=== PATIENT | female | born 1990 | race Caucasian/White ===

== ENCOUNTER → 2019-05-08 14:57 | Outpatient (CLI) | payer OTHER, SELFPAY ==
[2019-05-08 18:34] LABS: Chlamydia Trachomatis by PCR Negative (Negative); Neisserai gonorrhoeae by PCR Negative (Negative); Probe Check PASS; Sample Adequacy Control PASS; Specimen Processing Control PASS
== END ==
PROVIDERS: Visit Provider Obstetrics & Gynecology
DX: Z34.81 Encounter for supervision of other normal pregnancy, first trimester (principal); Z11.3 Encounter for screening for infections with a predominantly sexual mode of transmission
CPT/HCPCS: 87491; 87591

== ENCOUNTER → 2019-06-03 12:31 | Outpatient (CLI) | payer OTHER, SELFPAY ==
--- NOTE | 2019-06-03 12:34 | US_ITS ---
STUDY: FIRST TRIMESTER OBSTETRICAL ULTRASOUND REASON FOR EXAM: Female, 28 years old INITIAL LMP: 03/20/2019 TECHNIQUE: Transabdominal and Transvaginal TECHNICAL QUALITY: Adequate. PRIOR ULTRASOUND: None. FINDINGS: There is visualization of a single gestational sac in a normal intrauterine position. The mean sac diameter (MSD) measures 4.6, indicating an estimated gestational age (EGA) of 10 weeks, 3 days. The gestational sac shape is within normal limits. There is a visualized yolk sac. The yolk sac measures 5.1. The placenta is non-visualized. There is visualization of a live embryo. The crown-rump length (CRL) measures 3.6 cm, indicating an estimated gestational age (EGA) of 10 weeks, 4 days. There is demonstrated cardiac activity with a heart rate of 141 bpm. The estimated gestation age (EGA) by LMP is 10 weeks, 5 days. The estimated date of delivery (YUKO) by LMP is 12/25/2019. The estimated gestation age (EGA) by US is 10 weeks, 4 days. The estimated date of delivery (YUKO) by US is 12/26/2019. The uterus measures 9.1 x 7.3 x 6.0 cm. There is no demonstrated uterine fibroid. The cervix is closed. The right ovary measures 3.2 x 3.3 x 2.0 cm. There is no right ovarian cyst. There is no visualized right adnexal mass or complex lesion. The left ovary measures 2.8 x 2.9 x 1.4 cm. There is no left ovarian cyst. There is no visualized left adnexal mass or complex lesion. There is no fluid in the cul de sac. US/Init OB < 14Wks US IMPRESSION: Normal single live intrauterine gestation with ultrasound EGA of 10 weeks 4 days. Electronically Signed: Moy Brooks MD at 22:57 EST , Service support ,
== END ==
LOC: US 12:33
PROVIDERS: PCP Family Medicine; Referring Provider Obstetrics & Gynecology; Visit Provider Obstetrics & Gynecology
DX: Z34.03 Encounter for supervision of normal first pregnancy, third trimester (principal)
CPT/HCPCS: 76801

== ENCOUNTER → 2019-06-05 14:18 | Outpatient (CLI) | payer OTHER, SELFPAY ==
[2019-06-05 15:53] LABS: Absolute Lymphocyte Count 1.63 X10^3/uL (0.83-4.51); Absolute Neutrophil Count 6.7 X10^3/uL (2.0-7.7); Basophil# 0.05 X10^3/uL; Basophil% 0.6 % (0-1); Eosinophil# 0.08 X10^3/uL; Eosinophils% 0.9 % (0-5); Hemoglobin 13.4 g/dL (12.0-15.0); Lymphocyte # 1.63 X10^3/ul (4.0); Lymphocyte % 18.4 % (19-41); Mean Corp Hgb Conc 34.4 g/dL (32-36); Mean Corpuscular Hgb 30.3 pg (27.0-32.0); Mean Corpuscular Volume 88.2 fL (81-99); Mean Platelet Vol. 10.5 fl (6.2-12.0); Monocyte# 0.37 X10^3/uL; Monocyte% 4.2 % (0-10); NRBC Flagged by Analyzer 0 % (0-5); Neutrophil # 6.71 X10^3/uL (2.7-7.7); Neutrophil % 75.6 % (47-70); Platelet Count 242 K/mm3 (150-450); RBC Distribution Width CV 12.2 % (11.6-14.6); RBC Distribution Width SD 39.1 fl (35.1-43.9); Red Blood Count 4.42 M/mm3 (4.2-5.4); White Blood Count 8.9 K/mm3 (4.4-11.0)
[2019-06-05 15:58] LABS: Color, Urine Yellow (Yellow); Glucose, Dipstick Normal (Normal); Ketone-Dipstick Negative (Negative); Leukocyte Esterase-Dipstick 500 /ul (Negative); Nitrite-Dipstick Negative (Negative); Occult Blood-Urine Negative /ul (Negative); Protein-Dipstick Negative (Negative); Urine Bilirubin Dipstick Negative (Negative); Urine Clarity Sl. Cloudy (Clear); Urine Urobilinogen Normal (Normal)
[2019-06-05 16:11] LABS: Thyroid Stim Hormone (TSH) 0.76 uIU/mL (0.358-3.74)
[2019-06-05 16:50] LABS: Amphetamine Urine VISTA NEGATIVE (<1000 ng/mL); Barbiturate Urine VISTA NEGATIVE (< 200 ng/mL); Benzodiazepine Urine VISTA NEGATIVE (< 200 ng/mL); Cocaine Urine VISTA NEGATIVE (< 300 ng/mL); Ecstacy Urine VISTA NEGATIVE (< 500 ng/mL); Methadone Urine VISTA NEGATIVE (< 300 ng/mL); PCP Urine VISTA NEGATIVE (< 25 ng/mL); THC Urine VISTA NEGATIVE (< 50 ng/mL); Vista UDS pH Range 5
[2019-06-06 02:39] LABS: Prenatal RPR NONREACTIVE (NONREACTIVE)
[2019-06-06 10:13] LABS: HIV - WCH Non-Reactive (Nonreactive); Hepatitis B Surface Antigen Non-Reactive (Nonreactive); Hepatitis C Antibody Non-Reactive (Nonreactive); Rubella IgG 284.3 IU/mL; Vitamin D,25 Hydroxy 30.5 ng/mL (29.95-100.01)
== END ==
PROVIDERS: PCP Family Medicine; Visit Provider Obstetrics & Gynecology
DX: Z34.81 Encounter for supervision of other normal pregnancy, first trimester (principal)
CPT/HCPCS: 36415; 80307; 81002; 82306; 84443; 85025; 86703; 86762; 86803; 87086; 87088; 87340

== ENCOUNTER → 2019-07-29 11:31 | Outpatient (CLI) | payer OTHER, SELFPAY ==
--- NOTE | 2019-07-29 11:44 | US_ITS ---
STUDY: SECOND AND THIRD TRIMESTER OBSTETRICAL ULTRASOUND REASON FOR EXAM: Female, 28 years old ANATOMY LMP: March 20, 2019. TECHNIQUE: Transabdominal and Transvaginal TECHNICAL QUALITY: Adequate. PRIOR ULTRASOUND: Comparison is made with prior examination dated June 03, 2019. FINDINGS: There is a single intrauterine fetus. The fetus is in a cephalic presentation. There is demonstrated cardiac activity with a heart rate of 146 bpm. There is a normal amniotic fluid volume. The largest amniotic fluid pocket measures 3.9 cm x 9 cm. The amniotic fluid index (MILIND) is within normal limits. cm. The placenta is anterior with a complete previa. There are Grade 0 placental changes. The cervix measures 3.3 cm in length. The bilateral adnexal regions are normal. BIOMETRY: BPD: 4.5 cm: 19 weeks, 4 days HC: 16.7 cm: 19 weeks, 3 days AC: 14.2 cm: 19 weeks, 3 days FL: 3.1 cm: 19 weeks, 5 days CI: 81% FL/BPD: 70% FL/HC: FL/AC: 22% HC/AC: 1.17 age by current US: 19 weeks, 5 days. YUKO by current US: December 18, 2019. Estimated weight: 301 grams, +/- 44 grams, 91 %. age by prior US: 18 weeks, 4 days. YUKO by prior US: December 26, 2019. Age by LMP: 18 weeks, 5 days. YUKO by LMP: December 25, 2019. ANATOMY: Gender: Male Cranium: Normal lateral ventricles. Normal choroid plexus. Normal cerebellum. Normal cisterna magna. Normal face, nose and lips. Chest: Normal 4-chamber heart. Abdomen/Pelvis: Normal diaphragm. Normal stomach. Normal abdominal wall. Normal cord insertion. Normal 3 vessel cord. Normal kidneys. Normal bladder. Spine: Normal cervical spine. Normal thoracic spine. Normal lumbar spine. Normal sacrum. Extremities: Normal bilateral upper extremities. Normal bilateral lower extremities. US/OB Anatomy Scan IMPRESSION: Single live intrauterine gestation with a mean gestational age of 18 weeks and 4 days. The measurements obtained today following thin the normal expected range. There is a complete anterior placenta previa. Electronically Signed: Socrates Morrow, at 16:01 EDT , Service support ,
== END ==
PROVIDERS: PCP Family Medicine; Referring Provider Obstetrics & Gynecology; Visit Provider Obstetrics & Gynecology
DX: Z34.02 Encounter for supervision of normal first pregnancy, second trimester (principal)
CPT/HCPCS: 76805; 76817

== ENCOUNTER → 2019-09-25 15:24 | Outpatient (CLI) | payer OTHER, SELFPAY ==
[2019-09-25 15:56] LABS: Hematocrit 35.9 % (37-47); Hemoglobin 12.1 g/dL (12.0-15.0); Mean Corp Hgb Conc 33.7 g/dL (32-36); Mean Corpuscular Hgb 30.3 pg (27.0-32.0); Mean Corpuscular Volume 89.8 fL (81-99); Mean Platelet Vol. 10.3 fl (6.2-12.0); Platelet Count 249 K/mm3 (150-450); RBC Distribution Width CV 12.7 % (11.6-14.6); RBC Distribution Width SD 41.3 fl (35.1-43.9); White Blood Count 10.6 K/mm3 (4.4-11.0)
[2019-09-25 16:22] LABS: Glucose Challenge Gest 1H 50g 74 mg/dL (70-140)
== END ==
PROVIDERS: PCP Family Medicine; Visit Provider Obstetrics & Gynecology
DX: Z34.82 Encounter for supervision of other normal pregnancy, second trimester (principal)
CPT/HCPCS: 36415; 82950; 85027

== ENCOUNTER → 2019-11-27 13:51 | Outpatient (CLI) | payer OTHER, SELFPAY ==
[2019-11-27 15:39] LABS: Hematocrit 32.8 % (37-47); Hemoglobin 11.5 g/dL (12.0-15.0); Mean Corp Hgb Conc 35.1 g/dL (32-36); Mean Corpuscular Hgb 31.8 pg (27.0-32.0); Mean Corpuscular Volume 90.6 fL (81-99); Mean Platelet Vol. 11.5 fl (6.2-12.0); Platelet Count 184 K/mm3 (150-450); RBC Distribution Width CV 12.5 % (11.6-14.6); RBC Distribution Width SD 39.7 fl (35.1-43.9); Red Blood Count 3.62 M/mm3 (4.2-5.4); White Blood Count 8.3 K/mm3 (4.4-11.0)
[2019-11-27 15:57] LABS: ALB/GLOB Ratio 0.8 RATIO (0.9-2.4); AST(SGOT) 21 U/L (15-37); Alanine Aminotransfer ALT/SGPT 18 U/L (13-56); Albumin, Serum 2.7 g/dL (3.2-5.0); Alkaline Phosphatase 99 U/L (45-117); Anion Gap 6 (5-15); BUN 7 mg/dL (7-18); BUN/Creat Ratio 10.8 RATIO (10-20); Calcium,Total 8.5 mg/dL (8.5-10.1); Chloride 109 mmol/L (98-107); Creatinine, Serum 0.65 mg/dL (0.55-1.02); EST Glomerular Filtration Rate 117 mL/min (>60); Est Glom Filt Rate - Afr Amer 141 mL/min (>60); Globulin 3.5 g/dL (2.2-4.2); Glucose 89 mg/dL (74-106); Potassium 3.6 mmol/L (3.5-5.1); Protein, Total 6.2 g/dL (6.4-8.2); Sodium Level 138 mmol/L (136-145); Uric Acid 5.6 mg/dL (2.6-6.0)
== END ==
PROVIDERS: PCP Family Medicine; Visit Provider Obstetrics & Gynecology
DX: Z34.83 Encounter for supervision of other normal pregnancy, third trimester (principal); Z36.85 Encounter for antenatal screening for Streptococcus B
CPT/HCPCS: 36415; 80053; 84550; 85027; 87077; 87081; 87186

== ENCOUNTER → 2019-11-29 10:05 | Outpatient (CLI) | payer OTHER, SELFPAY ==
[2019-11-29 10:59] LABS: 24 Hour Urine Protein 171.7 mg/24HR (<150 MG/24HR); 24HR. UA Prot. Total Volume 2725 mL; Urine Protein (24 Hour) 6.3 mg/dL (<11.9)
== END ==
PROVIDERS: PCP Family Medicine; Visit Provider Obstetrics & Gynecology
DX: Z34.83 Encounter for supervision of other normal pregnancy, third trimester (principal)
CPT/HCPCS: 81050; 84156

== ENCOUNTER 2019-12-03 12:38 | Outpatient (CLI) | payer OTHER, SELFPAY ==
[2019-12-03] VITALS (8 sets, daily range): BP systolic 120–129; BP diastolic 79–86; PULSE 67–82; TEMP 37.2; O2SAT 98; BMI 25.5
[2019-12-03 13:20] LABS: Protein, Urine (Random) 12.5 mg/dL (<11.9); Protein:Creat Ratio 142 mg/g CRE (0-200)
[2019-12-03 13:21] LABS: Hematocrit 33.8 % (37-47); Hemoglobin 11.9 g/dL (12.0-15.0); Mean Corp Hgb Conc 35.2 g/dL (32-36); Mean Corpuscular Hgb 30.4 pg (27.0-32.0); Mean Corpuscular Volume 86.4 fL (81-99); Mean Platelet Vol. 11.1 fl (6.2-12.0); Platelet Count 183 K/mm3 (150-450); RBC Distribution Width CV 12.6 % (11.6-14.6); RBC Distribution Width SD 39.2 fl (35.1-43.9); Red Blood Count 3.91 M/mm3 (4.2-5.4); White Blood Count 8.5 K/mm3 (4.4-11.0)
[2019-12-03 13:56] LABS: ALB/GLOB Ratio 0.8 RATIO (0.9-2.4); AST(SGOT) 20 U/L (15-37); Alanine Aminotransfer ALT/SGPT 17 U/L (13-56); Albumin, Serum 2.7 g/dL (3.2-5.0); Alkaline Phosphatase 110 U/L (45-117); Anion Gap 5 (5-15); BUN 8 mg/dL (7-18); BUN/Creat Ratio 14.9 RATIO (10-20); Calcium,Total 8.8 mg/dL (8.5-10.1); Chloride 108 mmol/L (98-107); Creatinine, Serum 0.54 mg/dL (0.55-1.02); EST Glomerular Filtration Rate 145 mL/min (>60); Est Glom Filt Rate - Afr Amer 175 mL/min (>60); Estimated Creatinine Clearance 147.79 ml/min; Globulin 3.6 g/dL (2.2-4.2); Glucose 86 mg/dL (74-106); Potassium 3.6 mmol/L (3.5-5.1); Protein, Total 6.3 g/dL (6.4-8.2); Sodium Level 138 mmol/L (136-145); Uric Acid 5.7 mg/dL (2.6-6.0)
--- NOTE | 2019-12-03 23:55 | OB.TRI.NOTE ---
- Problem List (1) 36 weeks gestation of Status: Acute (2) Gestational hypertension Status: Acute Qualifiers: Trimester: third trimester Qualified Code(s): O13.3 - Gestational [-induced] hypertension without significant proteinuria, third trimester History of Present Illness Date of Service: 12/03/19 Was patient seen by the physician?: No Reason For Visit: R/O PRE-ECLAMPSIA Final YUKO: 12/25/19 Gestational age: 36 Weeks and 6 Days History of Present Illness: 28yo G1 @ 36 6/7wga with gestational hypertension sent to L&D from office for increasing BP to 140s/110s and monitoring. Denies headache, vision changes, shortness of breath or abdominal pain. Allergies No Known Allergies Allergy (Verified 12/03/19 12:48) Laboratory Studies: Laboratory Tests 12/03/19 12/03/19 12/03/19 Range/Units 13:10 13:10 13:00 WBC 8.5 (4.4-11.0) K/mm3 RBC 3.91 L (4.2-5.4) M/mm3 Hgb 11.9 L (12.0-15.0) g/dL Hct 33.8 L (37-47) % MCV 86.4 (81-99) fL MCH 30.4 (27.0-32.0) pg MCHC 35.2 (32-36) g/dL RDW Std Deviation 39.2 (35.1-43.9) fl RDW Coeff of Idris 12.6 (11.6-14.6) % Plt Count 183 (150-450) K/mm3 MPV 11.1 (6.2-12.0) fl Sodium 138 (136-145) mmol/L Potassium 3.6 (3.5-5.1) mmol/L Chloride 108 H (98-107) mmol/L Carbon Dioxide 25.0 (21.0-32.0) mmol/L Anion Gap 5 (5-15) BUN 8 (7-18) mg/dL Creatinine 0.54 L (0.55-1.02) mg/dL Estim Creat Clear Calc 147.79 ml/min Est GFR (MDRD) Af Amer 175 (>60) mL/min Est GFR (MDRD) Non-Af 145 (>60) mL/min BUN/Creatinine Ratio 14.9 (10-20) RATIO Glucose 86 (74-106) mg/dL Uric Acid 5.7 (2.6-6.0) mg/dL Calcium 8.8 (8.5-10.1) mg/dL Total Bilirubin 0.40 (0.20-1.00) mg/dL AST 20 (15-37) U/L ALT 17 (13-56) U/L Alkaline Phosphatase 110 (45-117) U/L Total Protein 6.3 L (6.4-8.2) g/dL Albumin 2.7 L (3.2-5.0) g/dL Globulin 3.6 (2.2-4.2) g/dL Albumin/Globulin Ratio 0.8 L (0.9-2.4) RATIO U Random Total Protein 12.5 H (<11.9) mg/dL Urine Creatinine 88.00 (NO RANGE EST.) mg/dL Protein/Creatinin Ratio 142 (0-200) mg/g CRE Physical Exam Vitals: Vital Signs Temp Pulse BP Pulse Ox 98.9 F 74 129/85 H 98 12/03/19 12:56 12/03/19 14:34 12/03/19 14:34 12/03/19 12:56 NST - FHR Rate Baby A Baseline: 130 Variability:: Moderate Accelerations:: 15 x 15 Decelerations:: None NST Reactive:: Yes FHR Category:: Category I Uterine Activity:: 0/10 Impression/Plan 38yo G1 @ 36 6/7wga with gestational hypertension with Cat I FHR -Labs reviewed with no signs of preeclampsia and BPs improved with rest -D/c home -Plan for IOL later this week -No further work
== END 2019-12-03 14:55 | disposition home or self-care (01) ==
LOC: WPOUT 12:44 → OBT 12:47
PROVIDERS: PCP Family Medicine; Referring Provider Obstetrics & Gynecology; Visit Provider Obstetrics & Gynecology
DX: O13.3 Gestational [pregnancy-induced] hypertension without significant proteinuria, third trimester (principal); Z3A.36 36 weeks gestation of pregnancy
CPT/HCPCS: 36415; 59025; 59050; 80053; 82570; 84156; 84550; 85027; 99218; G0378

== ENCOUNTER 2019-12-05 21:23 | Inpatient (IN) | payer OTHER, SELFPAY ==
[2019-12-03 12:48] VITALS: BMI 25.5
[2019-12-05] VITALS (7 sets, daily range): BP systolic 130–141; BP diastolic 86–95; PULSE 63–89; TEMP 37–37.4; O2SAT 97; BMI 25.7
--- NOTE | 2019-12-05 21:40 | PCM.HP.OB ---
- Problem List (1) Gestational hypertension Status: Acute Qualifiers: Trimester: third trimester (2) 37 weeks gestation of Status: Acute History Date of Admission: 12/05/19 Final YUKO: 12/25/19 Final YUKO Source: US <20 weeks Gestational age: 37 Weeks and 2 Days History of this : This is a 28 year-old, G [1], P [0], at 37 weeks gestational age. Allergies No Known Allergies Allergy (Verified 12/03/19 12:48) Home Medications: Home Medications Vits [Prenatabs FA ] 1 tab PO DAILY 12/03/19 Inulin/Chromium Picolinate [Fiber Gummies] 1 ea PO PRN PRN 12/06/19 Smoking Status: Never smoker Alcohol: None Number of Fetus(es): 1 NST - FHR Rate Baby A Baseline: 130 Variability:: Moderate Accelerations:: 15 x 15 Decelerations:: None NST Reactive:: Yes FHR Category:: Category I Uterine Activity:: quiet History Past Pregnancies: Past Pregnancies: None Labs: Mom's Problem List Problem Status Onset Code 37 weeks gestation of Acute Z3A.37 Mom's Labs & Results 12/05/19 12/05/19 22:00 22:00 WBC 9.5 RBC 3.99 L Hgb 11.9 L Hct 34.8 L MCV 87.2 MCH 29.8 MCHC 34.2 RDW Std Deviation 39.0 RDW Coeff of Idris 12.3 Plt Count 194 MPV 11.5 Immature Gran % (Auto) 0.300 Neut % (Auto) 76.4 H Lymph % (Auto) 17.1 L Kleberg % (Auto) 4.9 Eos % (Auto) 0.8 Baso % (Auto) 0.5 Absolute Neuts (auto) 7.2 Absolute Lymphs (auto) 1.62 Nucleated RBC % 0 Blood Type A POSITIVE Antibody Screen NEGATIVE Course Did the patient receive Yes care? Labs Blood Type: A RH: POSITIVE RPR/VDRL/Syphilis Nonreactive Rubella status Immune HbSAg Negative Date Done: 06/05/19 Chlamydia Negative Gonorrhea Negative HIV/AIDS Non-Reactive Group B Strep: Positive Current Obstetrical History Gestational Diabetes No Incompetent Cervix No Infertility No IUGR No Macrosomia No Hypertension/Pre-eclampsia Yes Placenta Previa/Abruption Yes: resolved previa at 33wks PTL/PROM No Uterine anomaly No Oligohydramnios No Polyhydramnios No Multiple gestation No Past Medical History Asthma No Diabetes No Hypertension No Heart disease No Mitral valve prolapse No Neurologic/Seizure disorder/ No Migraines Kidney disease No Liver disease No Varicosities No Clotting disorders/Hx of DVT No Thyroid Dysfunction No Other medical diseases No Psychiatric disorders No Major trauma No Abnormal PAP smear No Sleep apnea No Mammogram in the last 2 years No Social History Marital Status: Alleged father Carson Augustine Hx Smoking No Smoking Status Never smoker Expected Delivery Method: Spontaneous Vaginal Number of Visits: 10 Review of Systems Constitutional: Denies: Chills, Fever, Weight Change HEENT: Denies: Head Aches, Sinus Congestion, Sinus Drainage Cardiovascular: Denies: Chest Pain, Palpitations Respiratory: Denies: Cough, Shortness of breath at rest, Sputum production Gastrointestinal: Denies: Abdominal Pain, Nausea, Vomiting Genitourinary: Denies: Dysuria Musculoskeletal: Denies: Joint Pain, Joint Tenderness Skin: Denies: Rash, Wounds Neurological: Denies: Numbness, Tingling, Focal weakness Psychiatric: Denies: Anxiety, Depression, Homicidal Ideations, Suicidal Ideations Hematologic/ Lymphatic: Denies: Easy Bruising, Easy Bleeding Physical Exam Vitals: Vital Signs Temp Pulse BP Pulse Ox 98.2 F 70 128/90 H 98 12/06/19 06:51 12/06/19 06:52 12/06/19 06:51 12/06/19 06:52 General: Alert, Oriented x3, No apparent distress HEENT: Atraumatic, Normocephalic. Negative for: Thyromegaly, Lymphadenopathy Cardiovascular: Regular rate, Regular Rhythm Lungs: Clear to auscultation Abdomen: Bowel Sounds Present, Gravid Neurological: Deep Tendon Reflexes 2+/4 and Symmetrical, Neuro grossly intact [employer] DES[employer] ENGINEER: Normal external genitalia. Negative for: Vulvar lesions Estimated gestational size: Appropriate for gestational size Presentation: Cephalic Cervix Dilation (cm): 3 Station: -2 Effacement (%): 50 Assessment/Plan All Active Problems 36 weeks gestation of (Acute) Gestational hypertension (Acute) 37 weeks gestation of (Acute) A/P: This is a 28 year-old, G [1], P [0], at 37 weeks gestational age. IOL with Pitocin for gestational hypertension SVE /-2 NST Category I Continuous monitoring Will update POC with Dr. Givens
[2019-12-05] MEDS: Lactated Ringers 1,000 ML 50 ML IV (22:05)
[2019-12-05] MEDS: Oxytocin 30 units/NS 500 ml 30 UNITS/500 ML IV.SOLN IV (22:15)
[2019-12-05 22:39] LABS: Absolute Lymphocyte Count 1.62 X10^3/uL (0.83-4.51); Absolute Neutrophil Count 7.2 X10^3/uL (2.0-7.7); Basophil# 0.05 X10^3/uL; Basophil% 0.5 % (0-1); Eosinophil# 0.08 X10^3/uL; Eosinophils% 0.8 % (0-5); Hematocrit 34.8 % (37-47); Hemoglobin 11.9 g/dL (12.0-15.0); Lymphocyte # 1.62 X10^3/ul (4.0); Lymphocyte % 17.1 % (19-41); Mean Corp Hgb Conc 34.2 g/dL (32-36); Mean Corpuscular Hgb 29.8 pg (27.0-32.0); Mean Corpuscular Volume 87.2 fL (81-99); Mean Platelet Vol. 11.5 fl (6.2-12.0); Monocyte# 0.46 X10^3/uL; Monocyte% 4.9 % (0-10); NRBC Flagged by Analyzer 0 % (0-5); Neutrophil # 7.23 X10^3/uL (2.7-7.7); Neutrophil % 76.4 % (47-70); Platelet Count 194 K/mm3 (150-450); RBC Distribution Width CV 12.3 % (11.6-14.6); Red Blood Count 3.99 M/mm3 (4.2-5.4); White Blood Count 9.5 K/mm3 (4.4-11.0)
[2019-12-06] VITALS (47 sets, daily range): BP systolic 118–139; BP diastolic 73–95; PULSE 61–102; RESP 16; TEMP 36.6–37.4; O2SAT 94–100
--- NOTE | 2019-12-06 07:32 | PCM.PN.OB ---
Patient Problems: Active and Suspected Problems 37 weeks gestation of (Acute) Subjective: Feeling well with pain 4/10 with contractions. Objective: VSS with systolic 120-140s, diastolic 60-90s. SVE 3.5-4/80/-1 soft midposition. NST FHR baseline 140, + accels, -decels, moderate variability with UC Q1.5-4m. - Physical Exam Vitals/I&O's: Vital Signs Temp Pulse BP Pulse Ox 98.2 F 70 128/90 H 98 12/06/19 06:51 12/06/19 06:52 12/06/19 06:51 12/06/19 06:52 Weight: 72.121 kg Body Mass Index (BMI) 25.7 Intake and Output for Last 24 Hours 12/04/19 12/05/19 12/06/19 23:59 23:59 23:59 Intake Total 127.67 / 127.67 465.83 / 465.83 Output Total 200 / 200 500 / 500 Balance -72.33 / -72.33 -34.17 / -34.17 General: Alert, Oriented x3, Cooperative HEENT: Atraumatic, PERRLA, EOMI, Normocephalic Neck: Supple, No JVD, Negative Carotid Bruits Lungs: Clear to auscultation, Normal air movement Cardiovascular: Regular rate, No murmurs Abdomen: Bowel Sounds Present, Soft, Non Tender Extremities: No edema, Capillary Refill Less than 3 Seconds Skin: No rashes, No breakdown Musculoskeletal: No Tenderness to Palpation of Joints or Extremities Neurological: Cranial nerves II-XII grossly intact Psych/Mental Status: Normal Affect, Appropriate Laboratory Results 12/05/19 22:00: WBC 9.5, RBC 3.99 L, Hgb 11.9 L, Hct 34.8 L, MCV 87.2, MCH 29.8, MCHC 34.2, RDW Std Deviation 39.0, RDW Coeff of Idris 12.3, Plt Count 194, MPV 11.5, Immature Gran % (Auto) 0.300, Neut % (Auto) 76.4 H, Lymph % (Auto) 17.1 L, [place] % (Auto) 4.9, Eos % (Auto) 0.8, Baso % (Auto) 0.5, Absolute Neuts (auto) 7.2, Absolute Lymphs (auto) 1.62, Nucleated RBC % 0 12/05/19 22:00: Blood Type A POSITIVE, Antibody Screen NEGATIVE Current Medications Acetaminophen (Tylenol) 325 - 650 mg PO Q4H PRN PRN PRN Reason: Pain Score 1-3/10 Al Hydroxide/Mg Hydroxide (Mylanta Ii) 15 - 30 ml PO Q4H PRN PRN PRN Reason: INDIGESTION Citric Acid/Sodium Citrate (Bicitra) 30 ml PO X1 PRN PRN Reason: Section Fentanyl Citrate (Sublimaze (100mcg Ampule)) 25 - 50 mcg IV Q2H PRN PRN PRN Reason: Pain Score 4-10/10 Lactated Ringer's () 500 mls @ 999 mls/hr IV .Q31M PRN PRN Reason: Epidural Lactated Ringer's () 500 mls @ 999 mls/hr IV .Q31M PRN PRN Reason: Corrective Measures Lactated Ringer's () 1,000 mls @ 50 mls/hr IV .Q20H [facility] Last Infusion: 12/06/19 06:45 Dose: 0 mls/hr Documented by: Oxytocin/Sodium Chloride () 30 units in 500 mls @ 2 mls/hr IV .Q250H [facility] Last Infusion: 12/06/19 05:00 Dose: 20 mls/hr Documented by: Penicillin G Potassium/Dextrose (Penicillin G Potassium) 3 mu in 50 mls @ 100 mls/hr IV Q4H [facility] Last Admin: 12/06/19 06:45 Dose: 100 mls/hr Documented by: Ondansetron HCl (Zofran) 4 mg IV Q4H PRN PRN PRN Reason: NAUSEA Prochlorperazine Edisylate (Compazine Iv) 10 mg IV Q6H PRN PRN PRN Reason: NAUSEA Sodium Chloride () 10 - 40 ml IV X1 PRN PRN Reason: SALINE FLUSH Medical Necessity - Tobacco Use Smoking Status: Never smoker Assessment/Plan All Active Problems 36 weeks gestation of (Acute) Gestational hypertension (Acute) 37 weeks gestation of (Acute) A/P: Pitocin IOL SVE 3.5-4/80/-1 with AROM of clear, blood tinged amniotic fluid NST Category I UC Q1.5-4m Unsure of pain management Will update POC with oncoming primary OB, Dr. Givens
[2019-12-06] MEDS: Lactated Ringers 500 ML 999 ML IV (07:40)
[2019-12-06] MEDS: fentaNYL-bupivacaine (epidural) 100 ML BAG EPIDURAL (08:25)
--- NOTE | 2019-12-06 08:48 | PCM.PN.BLA ---
Progress Note LABOR PROGRESS NOTE Brigid is more comfortable with the epidural. AVSS GEN - NAD, AAO x 3 FHR 125, moderate variability, + acceleratinos, no decelerations TOCO 5/10 min SVE 4.5/90/0, cephalic A/P: 28yo G1 @ 37 2/7 wga, IOL for gHTN, on pitocin s/p AROM, Cat I FHR -Maternal and statuses reassuring -Continue pitocin as tolerated by mother and fetus STROKE Vital Signs/Narrative: Vital Signs Temp Pulse BP Pulse Ox 12/06/19 08:44 71 133/82 H 100 12/06/19 08:43 73 124/82 H 12/06/19 08:39 74 99 12/06/19 08:38 74 134/79 H 12/06/19 08:34 70 135/73 H 100 12/06/19 08:33 76 134/78 H 12/06/19 08:29 95 100 12/06/19 08:27 76 135/87 H 98 12/06/19 08:24 101 H 97 12/06/19 08:23 100 135/92 H 12/06/19 08:18 85 137/91 H 96 12/06/19 08:13 88 139/79 H 98 12/06/19 08:09 73 134/83 H 12/06/19 08:08 102 H 94 12/06/19 07:33 98.5 F 71 128/95 H 98 12/06/19 06:52 70 98 12/06/19 06:51 98.2 F 73 128/90 H 12/06/19 06:01 68 99 12/06/19 06:00 98.3 F 66 136/87 H 12/06/19 04:59 98.1 F 72 97 12/06/19 04:58 139/91 H
[2019-12-06] MEDS: Oxytocin 30 units/NS 500 ml 30 UNITS/500 ML IV.SOLN 334 UNITS IV (11:08)
[2019-12-06] MEDS: Methylergonovine 0.2 MG/ML Ampul IM (11:25)
[2019-12-06] MEDS: miSOPROStol 200 MCG Tablet 1000 MCG RECTAL (12:15)
--- NOTE | 2019-12-06 12:32 | OP.PCM_ITS ---
Problem List (1) 37 weeks gestation of Status: Acute (2) Gestational hypertension Status: Acute Qualifiers: Trimester: third trimester Qualified Code(s): O13.3 - Gestational [-induced] hypertension without significant proteinuria, third trimester Vaginal Delivery Maternal Presentation: Medically Indicated Induction Method of Induction: Pitocin, Amniotomy Amniotic Membrane Rupture Type: Artificial Rupture of Membrane time: 0659h 12/06/19 Amniotic Fluid Description: Clear Final YUKO: 12/25/19 Final YUKO Source: US <20 weeks Gestational age: 39 Weeks and 2 Days Elberta doctor who attended delivery (if requested by OB): Pieter Manjarrez Date of Procedure: 12/06/19 Pre-Operative Diagnosis: 37 2/7wga, gestational hypertension Post-Operative Diagnosis: 37 2/7wga, gestational hypertension Surgery/ Procedure Performed: Spontaneous Vaginal Delivery Anesthesiologist: Israel Morgan Type of Anesthesia: Epidural Description of Procedure: Patient was FD/+4 station on my arrival. Pushed to delivery vigorous male in JOSHUA through body cord. The was placed on the maternal abdomen and further attended by nursery personnel. The cord was doubly clamped and cut at 3 minutes of life. The placenta delivered spontaneously and appeared intact on inspection. The fundus was firm however there was heavy bleeding without hemorrhage. Methergine was given. A posterior cervical laceration with arteriolar bleeding was identified and repaired with 3-0 Vicryl Rapide with improved hemostasis. A second degree perineal laceration was repaired with 3-0 Vicryl Rapide. On re-inspection of the cervix, there was an increase of bleeding. The posterior cervical repair was reinforced with a second later of 3-0 Vicryl Rapide. The cervix remained patent following the repair with lower uterine segment clots palpable on exam. The fundus remained firm at 2 FW below umbilicus. Hemostasis was attained. Cytotec per rectum 800mcg administered. Sponge and needle counts were correct x 2. Presentation: Vertex Placental Delivery Description: Spontaneous Placenta Disposition: [facility] Cord Vessel Description: 3 Vessels Nuchal Cord Compression: Without compression Cord Entanglement: None Drain: Banks to straight drain Estimated Blood Loss: 750 ml A gender: Male Episiotomy Description: None Laceration: Midline, Perineal Extension/lac, Cervical Extension/lac, 2nd degree Medications given after delivery: IV Pitocin, IM Methergin, - - misoprostol
--- NOTE | 2019-12-06 13:50 | NURSING ---
Baby tansferred to nursery for observation , initiated double pumping with mother , educated on how to clean pumping supplies
[2019-12-06] MEDS: Acetaminophen 500 MG Tablet 1000 MG PO (16:24)
[2019-12-06] MEDS: Ibuprofen 600 MG Tablet PO (18:42)
[2019-12-07 00:31] VITALS: BP 119/85; PULSE 71; RESP 14; TEMP 36.4
[2019-12-07] MEDS: Ibuprofen 600 MG Tablet PO ×3 (00:51→15:57)
[2019-12-07 03:50] VITALS: BP 134/85; PULSE 77; RESP 14; TEMP 36.6
[2019-12-07] MEDS: Acetaminophen 500 MG Tablet 1000 MG PO ×2 (03:53→12:45)
[2019-12-07 06:36] LABS: Hemoglobin 9.7 g/dL (12.0-15.0); Mean Corp Hgb Conc 34.6 g/dL (32-36); Mean Corpuscular Hgb 30.3 pg (27.0-32.0); Mean Corpuscular Volume 87.5 fL (81-99); Mean Platelet Vol. 11.1 fl (6.2-12.0); Platelet Count 156 K/mm3 (150-450); RBC Distribution Width CV 12.7 % (11.6-14.6); RBC Distribution Width SD 39.6 fl (35.1-43.9); White Blood Count 12.8 K/mm3 (4.4-11.0)
[2019-12-07 09:29] VITALS: BP 116/85; PULSE 65; RESP 16; TEMP 37.1
[2019-12-07] MEDS: Prenatal Vits Tablet 1 TABLET PO (09:43)
--- NOTE | 2019-12-07 10:00 | DCINST_ITS ---
Discharge Diet: No Restrictions Discharge Activity: Return to Normal Activity, May not drive while taking narcotic pain medications., May Shower May resume sexual activity in: 4-6 weeks Additional Activity Instructions:: Nothing in the vagina for 4-6 weeks. You may return to work/school in 6 weeks. Call your doctor if your incision/area has: Continuous Slow Oozing, Sudden Increased Bleeding, Increased Pain/ Swelling, Increased Redness, Foul Smelling Discharge Additional Instructions: If you experience any of the following, contact your healthcare provider. * Bleeding that soaks a pad every hour for 2 hours * Fever 100.4 or higher * Unrelieved incision or abdominal pain * Swelling, redness, discharge or bleeding from your incision or episiotomy site * Your incision begins to separate * Problems urinating (including inability to urinate or burning while urinating). * Visual changes * Severe headache * Flu-like symptoms * Pain or redness in one of both of your breasts * Pain, warmth, tenderness or swelling in your legs, especially the calf area * Frequent nausea and vomiting * Symptoms of depression or anxiety If you experience any of the following, call 911 or go to the nearest Emergency Room. * Chest pain * Problems breathing * Seizure activity * Partial or complete paralysis of a body part, slurred speech, weakness or drooping of the face, or a sudden inability to walk or hold your balance Allergies/Adverse Reactions: Allergies No Known Allergies Allergy (Verified 12/03/19 12:48) Medications to take at Discharge Vits [Prenatabs FA ] 1 tab PO DAILY 12/03/19 Inulin/Chromium Picolinate [Fiber Gummies] 1 ea PO PRN PRN 12/06/19 Please Follow Up With: Radha Toscano MD When: Call to make an appointment with your doctor in 6 weeks. Primary Care Physician: Bora Wong MD [Primary Care Provider] - Test Results: Test results from this visit will be discussed in further detail at your follow- up appointment, if applicable.
[2019-12-07 10:04] VITALS: BP 107/69; PULSE 76; RESP 16; TEMP 37.1; O2SAT 98
--- NOTE | 2019-12-07 10:05 | PN.OBGYN_ITS ---
Patient Problems: Active and Suspected Problems 37 weeks gestation of (Acute) Subjective: Reports urinating well and had a small BM early this AM. Tolerating a regular diet and ambulating in her room. States is going well with son having a good latch. Would like to work with once today before disc harge. Denies heavy bleeding, states its like a moderate period. Vaginal pain is well controlled with Motrin and Tylenol. Objective: VSS. Highest BP overnight 130s/80s. Fundus is firm, midline at U. Lochia rubra moderate. - Physical Exam Vitals/I&O's: Vital Signs Temp Pulse Resp BP Pulse Ox 98.7 F 65 16 116/85 H 100 12/07/19 09:29 12/07/19 09:29 12/07/19 09:29 12/07/19 09:29 12/06/19 10:13 Oxygen Delivery Method Room Air Weight: 72.121 kg Body Mass Index (BMI) 25.7 Intake and Output for Last 24 Hours 12/05/19 12/06/19 12/07/19 23:59 23:59 23:59 Intake Total 127.67 / 127.67 2241.50 / 2241.50 Output Total 200 / 200 850 / 850 Balance -72.33 / -72.33 1391.50 / 1391.50 General: Alert, Oriented x3, Cooperative HEENT: Atraumatic, PERRLA, EOMI, Normocephalic Neck: Supple, No JVD, Negative Carotid Bruits Lungs: Clear to auscultation, Normal air movement Cardiovascular: Regular rate, No murmurs Abdomen: Bowel Sounds Present, Soft, Non Tender, Hypoactive Bowel Sounds - reports +BM and passing flatus Extremities: No edema, Capillary Refill Less than 3 Seconds Skin: No rashes, No breakdown Musculoskeletal: No Tenderness to Palpation of Joints or Extremities Neurological: Cranial nerves II-XII grossly intact Psych/Mental Status: Normal Affect, Appropriate Laboratory Results 12/07/19 06:28: WBC 12.8 H, RBC 3.20 L, Hgb 9.7 L, Hct 28.0 L, MCV 87.5, MCH 30.3, MCHC 34.6, RDW Std Deviation 39.6, RDW Coeff of Idris 12.7, Plt Count 156, MPV 11.1 Current Medications Acetaminophen (Tylenol) 1,000 mg PO Q8H PRN PRN PRN Reason: Pain Score 1-3/10 Last Admin: 12/07/19 03:53 Dose: 1,000 mg Documented by: Bisacodyl (Dulcolax) 10 mg RECTAL UD PRN PRN Reason: If no BM Dibucaine (Dibucaine) 1 applic TOPICAL TID PRN PRN; Protocol PRN Reason: Discomfort Hydrocortisone (Hytone) 1 applic TOPICAL TID PRN PRN; Protocol PRN Reason: Discomfort Ibuprofen (Motrin) 600 mg PO Q6H PRN PRN PRN Reason: Pain Score 1-10/10 Last Admin: 12/07/19 09:43 Dose: 600 mg Documented by: Methylergonovine Maleate (Methergine) 0.2 mg IM X1 PRN PRN Reason: Excess bleeding/uterine atony Ondansetron HCl (Zofran) 4 mg IV Q4H PRN PRN PRN Reason: NAUSEA Multivit/Folic Acid/Iron (Prenatabs Fa) 1 tablet PO DAILY@1200 JAKUB Last Admin: 12/07/19 09:43 Dose: 1 tablet Documented by: Senna/Docusate Sodium (Senokot-S, Priya-Colace) 1 - 2 tablet PO DAILY PRN PRN PRN Reason: Constipation Simethicone (Mylicon) 80 mg PO PCHS PRN PRN Reason: Indigestion/Stomach pain Last Admin: 12/07/19 09:43 Dose: 80 mg Documented by: Sodium Chloride () 5 - 15 ml IV UD PRN PRN Reason: SALINE FLUSH Medical Necessity - Tobacco Use Smoking Status: Never smoker Assessment/Plan All Active Problems 36 weeks gestation of (Acute) Gestational hypertension (Acute) 37 weeks gestation of (Acute) A/P: S/P NVD day #1 mother Normal involution and lochia BPs have remained stable 110s-130s/70s-80s, denies headache, blurred vision, RUQ pain or epigastric pain Dyad stable Discharge home today with 6 week PP appointment already scheduled Educated on signs of pre-e and when to call
[2019-12-07 12:38] VITALS: BP 107/69; PULSE 77; RESP 16; TEMP 36.6; O2SAT 95
== END 2019-12-07 16:05 | disposition home or self-care (01) | DRG 768 ==
PROVIDERS: Admitting Provider Obstetrics & Gynecology; PCP Family Medicine; Visit Provider Obstetrics & Gynecology
DX: O13.4 Gestational [pregnancy-induced] hypertension without significant proteinuria, complicating childbirth (principal); Z37.0 Single live birth; O69.81X0 Labor and delivery complicated by cord around neck, without compression, not applicable or unspecified; O70.1 Second degree perineal laceration during delivery; O71.3 Obstetric laceration of cervix; Z3A.37 37 weeks gestation of pregnancy
CPT/HCPCS: 59025; 59050; 85025; 85027; 86850; 86900; 86901; 99218; J7120; G0378

== ENCOUNTER → 2019-12-09 20:15 | Outpatient (CLI) | payer OTHER, SELFPAY ==
[2019-12-05 21:25] VITALS: BMI 25.7
== END ==
PROVIDERS: PCP Family Medicine; Referring Provider Obstetrics & Gynecology; Visit Provider Obstetrics & Gynecology
DX: O92.79 Other disorders of lactation (principal); O91.22 Nonpurulent mastitis associated with the puerperium
CPT/HCPCS: 96158

== ENCOUNTER → 2019-12-30 19:30 | Outpatient (CLI) | payer OTHER, SELFPAY ==
[2019-12-05 21:25] VITALS: BMI 25.7
== END ==
PROVIDERS: PCP Family Medicine; Referring Provider Obstetrics & Gynecology; Visit Provider Obstetrics & Gynecology
DX: R63.3 Feeding difficulties (principal)
CPT/HCPCS: 96158

== ENCOUNTER → 2020-05-19 13:39 | Outpatient (CLI) | payer OTHER, SELFPAY ==
[2019-12-05 21:25] VITALS: BMI 25.7
== END ==
PROVIDERS: PCP Family Medicine; Visit Provider Obstetrics & Gynecology
DX: N92.6 Irregular menstruation, unspecified (principal)
CPT/HCPCS: 87077; 87086; 87088

== ENCOUNTER → 2021-01-11 14:25 | Outpatient (CLI) | payer OTHER, SELFPAY ==
[2021-01-11 15:12] LABS: Absolute Lymphocyte Count 1.96 X10^3/uL (0.83-4.51); Absolute Neutrophil Count 7.8 X10^3/uL (2.0-7.7); Basophil# 0.06 X10^3/uL; Basophil% 0.6 % (0-1); Eosinophil# 0.19 X10^3/uL; Eosinophils% 1.8 % (0-5); Hematocrit 35.8 % (37-47); Hemoglobin 12.5 g/dL (12.0-15.0); Lymphocyte # 1.96 X10^3/ul (0.83-4.51); Lymphocyte % 18.7 % (19-41); Mean Corp Hgb Conc 34.9 g/dL (32-36); Mean Corpuscular Hgb 30.2 pg (27.0-32.0); Mean Corpuscular Volume 86.5 fL (81-99); Mean Platelet Vol. 10.3 fl (6.2-12.0); Monocyte# 0.43 X10^3/uL; Monocyte% 4.1 % (0-10); NRBC Flagged by Analyzer 0 % (0-5); Neutrophil # 7.82 X10^3/uL (2.7-7.7); Neutrophil % 74.5 % (47-70); Platelet Count 258 K/mm3 (150-450); RBC Distribution Width CV 11.9 % (11.6-14.6); RBC Distribution Width SD 37.6 fl (35.1-43.9); Red Blood Count 4.14 M/mm3 (4.2-5.4); White Blood Count 10.5 K/mm3 (4.4-11.0)
[2021-01-11 15:29] LABS: ALB/GLOB Ratio 1.1 RATIO (0.9-2.4); AST(SGOT) 12 U/L (15-37); Alanine Aminotransfer ALT/SGPT 19 U/L (13-56); Albumin, Serum 3.9 g/dL (3.2-5.0); Alkaline Phosphatase 49 U/L (45-117); Anion Gap 5 (5-15); BUN 12 mg/dL (7-18); BUN/Creat Ratio 22.3 RATIO (10-20); Calcium,Total 9.3 mg/dL (8.5-10.1); Chloride 106 mmol/L (98-107); Creatinine, Serum 0.54 mg/dL (0.55-1.02); EST Glomerular Filtration Rate 143 mL/min (>60); Est Glom Filt Rate - Afr Amer 174 mL/min (>60); Globulin 3.6 g/dL (2.2-4.2); Glucose 85 mg/dL (74-106); Potassium 3.6 mmol/L (3.5-5.1); Protein, Total 7.5 g/dL (6.4-8.2); Sodium Level 136 mmol/L (136-145)
[2021-01-11 15:33] LABS: Amphetamine Urine VISTA NEGATIVE (<1000 ng/mL); Barbiturate Urine VISTA NEGATIVE (< 200 ng/mL); Benzodiazepine Urine VISTA NEGATIVE (< 200 ng/mL); Cocaine Urine VISTA NEGATIVE (< 300 ng/mL); Ecstacy Urine VISTA NEGATIVE (< 500 ng/mL); Methadone Urine VISTA NEGATIVE (< 300 ng/mL); PCP Urine VISTA NEGATIVE (< 25 ng/mL); THC Urine VISTA NEGATIVE (< 50 ng/mL); Vista UDS pH Range 6
[2021-01-11 15:38] LABS: Protein, Urine (Random) 12.4 mg/dL (<11.9); Protein:Creat Ratio 91 mg/g CRE (0-200)
[2021-01-11 16:08] LABS: HIV - WCH Non-Reactive (Nonreactive); Hepatitis B Surface Antigen Non-Reactive (Nonreactive); Hepatitis C Antibody Non-Reactive (Nonreactive); Rubella IgG Reactive (Nonreactive); Syphilis Antibodies Non-reactive
[2021-01-14 06:08] LABS: Chlamydia By Nucleic Acid AMP Negative (Negative)
[2021-01-14 07:40] LABS: Gonococcus By Nucleic Acid AMP Negative (Negative)
[2021-01-15 16:45] LABS: HPV Reflexed? NOT INDICATED
== END ==
PROVIDERS: PCP Family Medicine; Referring Provider Obstetrics & Gynecology; Visit Provider Obstetrics & Gynecology
DX: O13.9 Gestational [pregnancy-induced] hypertension without significant proteinuria, unspecified trimester (principal); Z3A.00 Weeks of gestation of pregnancy not specified
CPT/HCPCS: 36415; 80053; 80307; 82570; 84156; 85025; 86703; 86762; 86780; 86803; 86850; 86900; 86901; 87086; 87340; 87491; 87591; 88175; G0145

== ENCOUNTER → 2021-03-24 14:12 | Outpatient (CLI) | payer OTHER, SELFPAY ==
--- NOTE | 2021-03-24 14:14 | US_ITS ---
STUDY: SECOND AND THIRD TRIMESTER OBSTETRICAL ULTRASOUND REASON FOR EXAM: Female, 30 years old anatomy scan LMP: 11/07/2020. TECHNIQUE: Transabdominal and Transvaginal TECHNICAL QUALITY: Adequate. PRIOR ULTRASOUND: None. FINDINGS: There is a single intrauterine fetus. The fetus is in a variable presentation. There is demonstrated cardiac activity with a heart rate of 153 bpm. There is a normal amniotic fluid volume. The largest amniotic fluid pocket measures 2.7 cm x 9.6 cm. The amniotic fluid index (MILIND) is within normal limits. The placenta is posterior in location and is not low lying. There are Grade 0 placental changes. The cervix measures 3.2 cm in length. The bilateral adnexal regions are normal. BIOMETRY: BPD: 4.2 cm: 18 weeks, 5 days HC: 16.1 cm: 18 weeks, 6 days AC: 14.2 cm: 19 weeks, 3 days FL: 2.9 cm: 19 weeks, 0 days CI: 76% FL/BPD: 69% FL/HC: FL/AC: 21% HC/AC: 1.13 age by current US: 19 weeks, 0 days. YUKO by current US: 08/18/2021. Estimated weight: 283 grams, +/- 42 grams, 20 %. Age by LMP: 19 weeks, 4 days. YUKO by LMP: 08/14/2021. IMPRESSION: Single live intrauterine gestation with mean gestational age of 19 weeks. Electronically Signed: Socrates Morrow MD at 14:35 EST , Service support , STUDY: FIRST TRIMESTER OBSTETRICAL ULTRASOUND REASON FOR EXAM: Female, 30 years old. Cervical length measurement. LMP: 11/07/2020 TECHNIQUE: Transvaginal TECHNICAL QUALITY: Adequate. PRIOR ULTRASOUND: None. FINDINGS: The cervical length measures 3.2 cm. US/OB Anatomy Scan IMPRESSION: The cervical length measures 3.2 cm. Electronically Signed: Socrates Morrow MD at 14:36 EST , Service support ,
== END ==
PROVIDERS: PCP Family Medicine; Visit Provider Obstetrics & Gynecology
DX: Z34.90 Encounter for supervision of normal pregnancy, unspecified, unspecified trimester (principal)
CPT/HCPCS: 76805; 76817

== ENCOUNTER 2021-05-20 10:35 | Outpatient (CLI) | payer BC, SELFPAY ==
[2021-05-20 10:55] LABS: Absolute Lymphocyte Count 1.48 X10^3/uL (0.83-4.51); Basophil# 0.05 X10^3/uL; Basophil% 0.5 % (0-1); Eosinophil# 0.11 X10^3/uL; Eosinophils% 1.1 % (0-5); Hematocrit 36.2 % (37-47); Hemoglobin 12.5 g/dL (12.0-15.0); Lymphocyte # 1.48 X10^3/ul (0.83-4.51); Lymphocyte % 14.7 % (19-41); Mean Corp Hgb Conc 34.5 g/dL (32-36); Mean Corpuscular Hgb 30.4 pg (27.0-32.0); Mean Corpuscular Volume 88.1 fL (81-99); Mean Platelet Vol. 10.1 fl (6.2-12.0); Monocyte# 0.38 X10^3/uL; Monocyte% 3.8 % (0-10); NRBC Flagged by Analyzer 0 % (0-5); Neutrophil # 8.04 X10^3/uL (2.7-7.7); Neutrophil % 79.6 % (47-70); Platelet Count 235 K/mm3 (150-450); RBC Distribution Width CV 12.8 % (11.6-14.6); RBC Distribution Width SD 41.5 fl (35.1-43.9); Red Blood Count 4.11 M/mm3 (4.2-5.4); White Blood Count 10.1 K/mm3 (4.4-11.0)
[2021-05-20 11:22] LABS: Glucose Challenge Gest 1H 50g 91 mg/dL (70-140)
== END 2021-05-20 23:59 | disposition short-term general hospital (02) ==
PROVIDERS: PCP Family Medicine; Referring Provider Obstetrics & Gynecology; Visit Provider Obstetrics & Gynecology
DX: Z34.80 Encounter for supervision of other normal pregnancy, unspecified trimester (principal)
CPT/HCPCS: 36415; 82950; 85025

== ENCOUNTER 2021-07-26 07:51 | Outpatient (CLI) | payer BC, SELFPAY | END 2021-07-26 23:59 | disposition home or self-care (01) | LOC: LABSPEC 07:52 | PROVIDERS: PCP Family Medicine; Visit Provider Obstetrics & Gynecology | DX: Z34.92 Encounter for supervision of normal pregnancy, unspecified, second trimester (principal) | CPT/HCPCS: 87081 ==

== ENCOUNTER 2021-08-06 16:20 | Outpatient (CLI) | payer BC, SELFPAY ==
--- NOTE | 2021-08-06 16:21 | US_ITS ---
STUDY: SECOND AND THIRD TRIMESTER OBSTETRICAL ULTRASOUND - LIMITED REASON FOR EXAM: Female, 30 years old. growth PRIOR ULTRASOUND: 12.1.21 TECHNIQUE: Transabdominal TECHNICAL QUALITY: Adequate. FINDINGS: There is a single intrauterine fetus. The fetus is in a cephalic presentation. There is demonstrated cardiac activity with a heart rate of 148 bpm. There is a normal amniotic fluid volume. The largest amniotic fluid pocket measures 7.2 cm. The amniotic fluid index (MILIND) is 11.6 cm. The placenta is posterior in location and is not low lying. There are Grade 1 placental changes. The cervix is obscured by overlying bowel gas and cannot be identified. . BIOMETRY: BPD: 91 mm: 37 weeks, 0 days HC: 349 mm: 40 weeks, 3 days AC: 325 mm: 36 weeks, 2 days FL: 71 mm: 36 weeks, 2 days CI: 78 FL/AC: 22 FL/BPD: 77 HC/AC: 1.07 age by current US: 37 weeks, 3 days. YUKO by current US: 5.3.22. Estimated weight: 2998 grams, +/- 450 grams, 18 %. Age by LMP: 38 weeks, 6 days. YUKO by LMP: 4.23.22. US/OB Limited With Biometrics IMPRESSION: There is a single live intrauterine with a heart rate of 148 bpm. age by current US: 37 weeks, 3 days. YUKO by current US: 5.3.22. Estimated weight: 2998 grams, +/- 450 grams, 18 %. Electronically Signed: Merrill Bolton MD at 21:48 EDT ,
== END 2021-08-06 23:59 | disposition home or self-care (01) ==
LOC: US 16:21
PROVIDERS: PCP Family Medicine; Visit Provider Obstetrics & Gynecology
DX: O26.849 Uterine size-date discrepancy, unspecified trimester (principal); Z3A.00 Weeks of gestation of pregnancy not specified
CPT/HCPCS: 76816

== ENCOUNTER 2021-08-15 03:15 | Inpatient (IN) | payer BC, SELFPAY ==
[2021-08-15] VITALS (33 sets, daily range): BP systolic 108–135; BP diastolic 59–91; PULSE 58–96; RESP 16–18; TEMP 36.2–36.7; O2SAT 91–100; BMI 25.9
[2021-08-15] MEDS: Lactated Ringers 1,000 ML 50 ML IV (03:20)
[2021-08-15] MEDS: Lactated Ringers 500 ML 999 ML IV (03:25)
[2021-08-15 03:33] LABS: Absolute Lymphocyte Count 1.93 X10^3/uL (0.83-4.51); Absolute Neutrophil Count 6.3 X10^3/uL (2.0-7.7); Basophil# 0.04 X10^3/uL; Basophil% 0.4 % (0-1); Eosinophil# 0.08 X10^3/uL; Eosinophils% 0.9 % (0-5); Hematocrit 36.5 % (37-47); Hemoglobin 12.9 g/dL (12.0-15.0); Lymphocyte # 1.93 X10^3/ul (0.83-4.51); Lymphocyte % 21.6 % (19-41); Mean Corp Hgb Conc 35.3 g/dL (32-36); Mean Corpuscular Hgb 30.4 pg (27.0-32.0); Mean Corpuscular Volume 85.9 fL (81-99); Monocyte# 0.51 X10^3/uL; Monocyte% 5.7 % (0-10); NRBC Flagged by Analyzer 0 % (0-5); Neutrophil # 6.34 X10^3/uL (2.7-7.7); Neutrophil % 71.1 % (47-70); Platelet Count 203 K/mm3 (150-450); RBC Distribution Width CV 12.2 % (11.6-14.6); RBC Distribution Width SD 37.8 fl (35.1-43.9); Red Blood Count 4.25 M/mm3 (4.2-5.4); White Blood Count 8.9 K/mm3 (4.4-11.0)
[2021-08-15] MEDS: fentaNYL-bupivacaine (epidural) 100 ML BAG EPIDURAL (04:19)
[2021-08-15] MEDS: Oxytocin 30 units/NS 500 ml 30 UNITS/500 ML IV.SOLN 334 UNITS IV (06:36)
--- NOTE | 2021-08-15 06:51 | HP.PCM.OB_ITS ---
HPI - General General Date of Admission: 08/15/21 HPI Narrative BERNARD GUTIERRES, is a 30y/o @ 40 weeks 1 day who presents to L&D in active labor, found ot be 5 cm dilated with bulging membranes and requesting pain medication. Maternal Data Information YUKO Calculator Estimated Delivery Date Method Current WG Current Estimate 08/14/21 LMP (Certain) 40w 1d PFSH PFS Medical History Gestational HTN Home Medications vit,[id number] 1 tab PO DAILY 12/03/19 [History Last Taken 08/14/21 08:00] aspirin 81 mg tablet,delayed release 81 mg PO DAILY 04/08/21 [History Last Taken 08/14/21 08:00] Allergy/AdvReac Type Severity Reaction Status Date / Time No Known Allergies Allergy Verified 08/13/21 13:52 Family History Father Diabetes Grandmother Breast cancer Grandfather Cancer Surgical History History of tonsillectomy and adenoidectomy Social History household members: family number of children: 1 current occupational status: employed current occupation: [employer]- [place] Smoking Status: Never smoker second hand exposure: No alcohol intake: current alcohol intake frequency: holidays/special occasions only substance use type: does not use seatbelt use: always do you feel safe at home: Yes additional social history: - Carson (service department manager) History 2 Elective abortions Hx Para 1 Spontaneous abortions Hx # Term Pregnancies Ectopic pregnancies Hx # Pregnancies Multiple births # of living children 1 Past Pregnancies Del. Date Name GA/Weeks Outcome Route Bth Weight Gen Labor Lgth Anesthesia Del Locatn Provider FOB 12/06/19 Elver 37 live - full term 7lbs 2oz Male 13 h ours epidural [employer] ESTEFANY Byrd Delivery Date: 12/06/19 GHTN- IoL at 37 weeks; heavy bleeding w/o hemorrhage- methergine given; 2nd degree laceration Perla Blue Visit Details Expected Delivery Route/Plan Labor Preferences- labor support person: Carson labor intervention preferences: none pain management options preferred:open, had epidural in the past. cut cord/dad catch: yes : yes PP control planned: [] discussed possible routes of delivery and associated risks: [] special requests: [] Plans Covid status: moderna vaccine in past. Flu vaccine: given Tdap vaccine: given Rhogam: na LARC form signed: declined movement and labor precautions reviewed. Problem list reviewed and updated with the most current plan of care details and appropriate orders placed. Relevant counseling for the gestational age provided. Continue routine care and follow up unless otherwise noted in visit notes/problem list details OB Flowsheet Initial Weight: 135 lb Date -?-?-?-?-?-?-?-?-?-?-?-?- EGA Weight BP Urine Prot -?-?-?-?-?-?-?-?-?-?-?-?- Glucose FHR FuHt Pres Dilation -?-?-?-?-?-?-?-?-?-?-?-?- Effaced St Visit Note 12/22/20 -?-?-?-?-?-?-?-?-?-?-?-?- 6w 3d -?-?-?-?-?-?-?-?-?-?-?-?- -?-?-?-?-?-?-?-?-?-?-?-?- 01/11/21 -?-?-?-?-?-?-?-?-?-?-?-?- 9w 2d 137 lb (+2 lb) 136/70 -?-?-?-?-?-?-?-?-?-?-?-?- 175 -?-?-?-?-?-?-?-?-?-?-?-?- SM- CRL cons wit h LMP SM- CRL 2.2cm cons with LMP 02/10/21 -?-?-?-?-?-?-?-?-?-?-?-?- 13w 4d 139 lb (+4 lb) 116/72 -?-?-?-?-?-?-?-?-?-?-?-?- 150 -?-?-?-?-?-?-?-?-?-?-?-?- SM- no vb crampi ng significant 03/10/21 -?-?-?-?-?-?-?-?-?-?-?-?- 17w 4d 142 lb 4 oz (+7 lb 4 oz) 122/76 Negative -?-?-?-?-?-?-?-?-?-?-?-?- Negative 157 -?-?-?-?-?-?-?-?-?-?-?-?- JV- no lof, vagi nal bleeding, or cramping. Planning for covid booster 04/08/21 -?-?-?-?-?-?-?-?-?-?-?-?- 21w 5d 146 lb 8 oz (+11 lb 8 oz) 116/78 Negative -?-?-?-?-?-?-?-?-?-?-?-?- Negative -?-?-?-?-?-?-?-?-?-?-?-?- JV- got covid giancarlo amelia and started baby asa. nml anatmoy scan at [facility]. 05/06/21 -?-?-?-?-?-?-?-?-?-?-?-?- 25w 5d 148 lb 8 oz (+13 lb 8 oz) 110/82 Negative -?-?-?-?-?-?-?-?-?-?-?-?- Negative 160 -?-?-?-?-?-?-?-?-?-?-?-?- SM- no vb lof go od fm no regular ctx 05/20/21 -?-?-?-?-?-?-?-?-?-?-?-?- 27w 5d 152 lb (+17 lb) 112/82 -?-?-?-?-?-?-?-?-?-?-?-?- 145 27 -?-?-?-?-?-?-?-?-?-?-?-?- SM- no vb lof go od fm no regular ctx 06/09/21 -?-?-?-?-?-?-?-?-?-?-?-?- 30w 4d 156 lb 2 oz (+21 lb 2 oz) 128/82 Negative -?-?-?-?-?-?-?-?-?-?-?-?- Negative 135 29 -?-?-?-?-?-?-?-?-?-?-?-?- JV- lark form si gned. no lof, vaginal bleeding, or dec fm. 06/23/21 -?-?-?-?-?-?-?-?-?-?-?-?- 32w 4d 158 lb 6 oz (+23 lb 6 oz) 118/88 Negative -?-?-?-?-?-?-?-?-?-?-?-?- Negative 145 32 Cephalic -?-?-?-?-?-?-?-?-?-?-?-?- JV- no lof, vagi nal bleeding, or dec fm. 07/09/21 -?-?-?-?-?-?-?-?-?-?-?-?- 34w 6d 159 lb 4 oz (+24 lb 4 oz) 120/80 Negative -?-?-?-?-?-?-?-?-?-?-?-?- Negative 140 33 Cephalic -?-?-?-?-?-?-?-?-?-?-?-?- JV- no lof, vagi nal bleeding, or dec fm. no complaints today. GBS next visit. 07/23/21 -?-?-?-?-?-?-?-?-?-?-?-?- 36w 6d 161 lb (+26 lb) 120/82 Negative -?-?-?-?-?-?-?-?-?-?-?-?- Negative 145 36 Cephalic 2 -?-?-?-?-?-?-?-?--?-?-?-?- 60 -2 SM- no vb lof good fm no regualr ctx gbs today 07/30/21 -?-?-?-?-?-?-?-?-?-?-?-?- 37w 6d 160 lb 6 oz (+25 lb 6 oz) 116/87 Negative -?-?-?-?-?-?-?-?-?-?-?-?- Negative 141 36 Cephalic 2 -?-?-?-?-?-?-?-?-?-?-?-?- 80 -1 JV- no lof , vaginal bleeding or dec fm. labor precautions discussed. 08/06/21 -?-?-?-?-?-?-?-?-?-?-?-?- 38w 6d 162 lb 8 oz (+27 lb 8 oz) 122/88 Negative -?-?-?-?-?-?-?-?-?-?-?-?- Negative 140 35 Cephalic 2 -?-?-?-?-?-?-?-?-?-?-?-?- 80 -1 Sm- no vb lof good fm no regular ctx Sm- no vb lof good fm no reg ular ctx FUNDAL HEIGHT LOW check xiao now- . growth us ordered. Sm- no vb lof good fm no reg ular ctx FUNDAL HEIGHT LOW check milind now- 17 cm . growth us ordered. 08/13/21 -?-?-?-?-?-?-?-?-?-?-?-?- 39w 6d 163 lb 2 oz (+28 lb 2 oz) 130/89 Negative -?-?-?-?-?-?-?-?-?-?-?-?- Negative 145 35 Cephalic 3 -?-?-?-?-?-?-?-?-?-?-?-?- 80 -2 JV- no lof , vaginal bleeding, or dec fm. MILIND 11 JV- no lof, vaginal bleeding , or dec fm. MILIND 11. plan for IOL at 41 weeks. pt prefers monday (41 weeks 3 days) 08/15/21 -?-?-?-?-?-?-?-?-?-?-?-?- 40w 1d 160 lb 6 oz (+25 lb 6 oz) 127/84 135/91 131/84 124/59 113/69 109/61 114/68 118/70 110/71 113/72 108/64 -?-?-?-?-?-?-?-?-?-?-?-?- -?-?-?-?-?-?-?-?-?-?-?-?- ROS Constitutional Constitutional: Denies change in weight, fatigue, fever(s), headache(s), poor appetite or weakness Eyes Eyes: Denies blurry vision, change in vision, seeing flashes or spots in vision ENT HEENT: Denies dizziness, headache(s), loss taste/smell or sore throat Cardiovascular Cardiovascular: Denies chest pain, dizziness, dyspnea, irregular heart rhythm, leg edema, palpitations, rapid heart rate or vomiting Respiratory/Chest Respiratory/Chest: Denies chest tightness, cough, dyspnea or breast pain Gastrointestinal Gastrointestinal: Denies abdominal pain, anorexia, constipation, cramping, diarrhea, hemorrhoids, vomiting or weight changes Genitourinary Genitourinary: Denies dysuria, flank pain, genital lesions, genital pain, urinary frequency or urinary urgency Musculoskeletal Musculoskeletal: Denies back pain, difficulty walking, joint pain, limited range of motion, muscle cramps or numbness Integumentary Integumentary: Denies lesions or unusual bruising Neurologic Neurologic: Denies abnormal movements, abnormal speech, dizziness, numbness, seizure-like activity or syncope Psychiatric Psychiatric: Denies anxiety, behavioral changes, change in appetite, change in libido, cognitive impairment, confusion, depression, difficulty concentrating, hallucinations or suicidal thoughts Endocrine Endocrinology: Denies excessive sweating, polydipsia or polyuria Hematologic/Lymphatic Hematologic/Lymphatic: Denies easy bleeding, easy bruising or lymphadenopathy Allergic/Immunologic Allergic/Immunologic: Denies itchy eyes, lip swelling, seasonal rhinorrhea, rhinitis, throat swelling, tongue swelling, eczemia, wheezing or asthma Vital Signs Vital Signs Vital Signs: 08/15/21 03:00 08/15/21 03:57 08/15/21 04:02 Temperature 97.4 F L Temperature Source Temporal Pulse Rate 81 83 83 Blood Pressure 127/84 H BP Systolic 127 BP Diastolic 84 Pulse Ox 100 100 08/15/21 04:03 08/15/21 04:06 08/15/21 04:07 Temperature Temperature Source Pulse Rate 75 79 Blood Pressure 135/91 H BP Systolic 135 BP Diastolic 91 Pulse Ox 91 100 04/24/22 04:08 08/15/21 04:14 08/15/21 04:19 Temperature Temperature Source Pulse Rate 85 86 96 Blood Pressure 131/84 H 124/59 H BP Systolic 131 124 BP Diastolic 84 59 Pulse Ox 100 100 08/15/21 04:20 08/15/21 04:24 08/15/21 04:29 Temperature Temperature Source Pulse Rate 81 88 72 Blood Pressure 113/69 109/61 114/68 BP Systolic 113 109 114 BP Diastolic 69 61 68 Pulse Ox 100 100 08/15/21 04:33 08/15/21 04:34 08/15/21 04:38 Temperature Temperature Source Pulse Rate 73 77 75 Blood Pressure 118/70 110/71 BP Systolic 118 110 BP Diastolic 70 71 Pulse Ox 100 08/15/21 04:39 08/15/21 05:54 08/15/21 05:55 Temperature 97.1 F L Temperature Source Temporal Pulse Rate 76 88 Blood Pressure 113/72 BP Systolic 113 BP Diastolic 72 Pulse Ox 100 08/15/21 06:45 08/15/21 06:48 Temperature 97.4 F L Temperature Source Temporal Pulse Rate 85 Blood Pressure 108/64 BP Systolic 108 BP Diastolic 64 Pulse Ox Weight Weight: 160 lb 6 oz Body Mass Index (BMI) 25.9 Physical Exam Const alert, oriented x3, no apparent distress and healthy appearing General Appearance: cooperative; Negative for anxious HEENT normocephalic Face and Sinus: normal facial exam Eyes EOMs intact bilaterally and no scleral icterus General Eye: normal appearance of both eyes Neck full ROM and supple Lymph Lymphatic: no lymphadenopathy noted Chest Chest: abnormal inspection of the chest Resp normal respiratory effort Effort and Inspection: able to speak in complete sentences Cardio regular rate GI soft to palpation and non-tender Inspection: gravid Palpation: soft; Negative for tender external exam normal Back/Spine no CVA tenderness Extremity normal to inspection, full ROM and no clubbing, cyanosis or edema General Extremity: Negative for calf tenderness or edema Skin Lesions: no lesions Rashes: no rashes Psych mental status grossly normal Labs Labs Labs: Blood Type A POSITIVE Antibody Screen NEGATIVE Hct 36.5 % (37-47) L Hgb 12.9 g/dL (12.0-15.0) Obstetrics Syphilis Total Ab Non-reactive Rubella IgG Antibody Reactive (Nonreactive) Hep Bs Antigen Non-Reactive (Nonreactive) Chlamydia DNA (LARY) Negative (Negative) Neisseria gonorrhoeae DNA (LARY) Negative (Negative) HIV 1&2 Antibody Non-Reactive (Nonreactive) Glucose 1 Hr 50 gm 91 mg/dL (70-140) Rhogam given: No Assessment & Plan (1) Supervision of other normal : COMMENT: PRR YUKO: 08/14/21girl PC: Elver Spouse: Carson (2) : QUALIFIERS: Weeks of gestation: 39 weeks Qualified Code(s): Z3A.39 - 39 weeks gestation of COMMENT: anatomy nl, declines carrier, genetic and NTD. GBS neg, 08/05 nl growth (3) History of gestational hypertension: COMMENT: nl baseline cmp protein PLAN: Patient presents IAL, plan expectant management for , pitocin/AROM PRN if needed. Pain management: plans epidural. GBS negative . Management of any complications: none I have reviewed the [facility] and made any clinically relevant updates.
--- NOTE | 2021-08-15 06:53 | EX.PCM.OBRPT ---
Maternal Data Information YUKO Calculator Estimated Delivery Date Method Current WG Current Estimate 08/14/21 LMP (Certain) 40w 1d Vaginal Delivery Maternal Presentation Maternal Presentation: Active Labor Operative Information Date of Procedure: 08/15/21 Pre-Operative Diagnosis: 40 weeks 1 day, in active labor Post-Operative Diagnosis: 40 weeks 1 day, in active labor Type of Anesthesia: None Estimated Blood Loss: 100cc Findings Description of Procedure: Patient began pushing and delivered the head in the BRANDEN presentation. The head was delivered atraumatically. The anterior and posterior shoulders delivered without complication followed by the rest of the and the was placed on the maternal abdomen. Delayed cord clamping was employed for approximately 60 seconds. Cord was clamped and cut and gentle traction was applied to the cord and the placenta delivered spontaneously immediately following it was noted to be intact with three-vessel cord. The perineum and vagina were inspected and noted to have a 1st degree perineal laceration that was repaired with a 3-0 vicryl suture. EBL was 100 cc. Patient and tolerated delivery well. Presentation: Vertex Amniotic Membrane Rupture Type: Spontaneous Amniotic Fluid Description: Clear Placental Delivery Description: Spontaneous Placenta Disposition: [facility] Cord Vessel Description: 3 Vessels Cord Entanglement: None A Gender: Female (1 minute): 8 (5 minute): 9 Delayed Cord Clamping: Yes Post Vaginal Delivery Medications Given After Delivery: IV Pitocin Episiotomy Description: None Laceration: 1st degree Complication Complications: None Multi Select Codes Urinary/Genital Urinary/Genital CPT Codes: 76488 Vaginal Delivery [facility]
--- NOTE | 2021-08-15 06:56 | PCM.DC ---
Discharge Instructions Diet Discharge Diet: No restrictions Activity Discharge Activity: Return to Normal Activity, May Not Drive (while taking narcotic pain medications.) and May Shower May resume sexual activity in: 4-6 weeks Dressing / Incision Call your doctor if your incision/area has: Continuous Slow Oozing, Sudden Increased Bleeding, Increased Pain/ Swelling, Increased Redness and Foul Smelling Discharge Follow Up Care Please Follow Up With: Malina Merrill, When: Call [phone] to make an appointment with your doctor in 6 weeks. If you had elevated blood pressure or 4th degree laceration, you will need to be seen in 2 weeks. Test Results: Test results from this visit will be discussed in further detail at your follow-up appointment, if applicable. Discharge Plan Admission Admit Date/Time: 08/15/21 03:15 Primary Reason for Your Visit: vaginal delivery Attending Provider: Malina Merrill Primary Care Provider: Bora Wong Discharge Orders/Prescriptions Prescriptions: New ibuprofen 600 mg tablet 600 mg PO Q6H PRN (Reason: pain) 7 Days Qty: 28 RF: 0 Continued vit,[id number] 1 TABLET tablet 1 tab PO DAILY RF: 0 Discontinued aspirin 81 mg tablet,delayed release (DR/EC) 81 mg PO DAILY RF: 0 Referrals / Follow Up: Bora Wong MD [Primary Care Provider] - Disposition Disposition (needs filled in before D/C Order can be placed): Home, Self Care
[2021-08-15] MEDS: Methylergonovine 0.2 MG/ML Ampul IM (07:17)
[2021-08-15] MEDS: Acetaminophen 500 MG Tablet 1000 MG PO ×2 (09:36→22:34)
[2021-08-15] MEDS: 0.9% Saline Lock 10 ML Syringe IV (09:36)
[2021-08-15] MEDS: Ibuprofen 600 MG Tablet PO ×2 (11:25→19:57)
[2021-08-16 04:26] VITALS: BP 120/79; PULSE 65; RESP 16; TEMP 36.2
[2021-08-16 07:45] VITALS: BP 129/85; PULSE 76; RESP 16; TEMP 36.6
--- NOTE | 2021-08-16 07:51 | PCM.PN.OB ---
Subjective Subjective Patient doing well without complaints. Tolerating PO. Ambulating and voiding without difficulty. Feeding well. Denies chest pain, shortness of breath, calf pain/swelling, fevers, chills, lightheadedness. Objective Data Objective Data Vital Signs: Vital Signs Temp Pulse Resp BP Pulse Ox 97.1 F L 65 16 120/79 100 08/16/21 04:26 08/16/21 04:26 08/16/21 04:26 08/16/21 04:26 08/15/21 04:39 Oxygen Delivery Method Room Air Weight: 160 lb 6 oz Body Mass Index (BMI) 25.9 Intake & Output: Intake and Output for Last 24 Hours 08/14/21 08/15/21 08/16/21 23:59 23:59 23:59 Intake Total 1531.66 / 1531.66 Output Total 1100 / 1100 Balance 431.66 / 431.66 Lab / Micro Data Result Diagrams: 08/15/21 03:20 Micro: Microbiology 08/15/21 03:25 Nasal Secretion SARS-CoV-2 Antigen (Rapid) - Final Physical Exam Const alert and oriented x3 HEENT normocephalic Eyes PERRL Neck full ROM Resp normal respiratory effort GI soft to palpation GI Narrative: FF below U Assessment & Plan (1) Vaginal delivery: COMMENT: baby jaylen Rahman 08/15/21- JNando PLAN: s/p PPD # 1 1. routine post delivery care 2. breast feeding- support given 3. rh positive 4. rubella immune 5. home today
[2021-08-16 12:05] VITALS: BP 119/81; PULSE 74; RESP 16; TEMP 36.6
== END 2021-08-16 12:10 | disposition home or self-care (01) | DRG 807 ==
LOC: WPOUT 03:16 → WP 03:16
PROVIDERS: Admitting Provider Obstetrics & Gynecology; PCP Family Medicine; Visit Provider Obstetrics & Gynecology
DX: O13.4 Gestational [pregnancy-induced] hypertension without significant proteinuria, complicating childbirth (principal); Z37.0 Single live birth; O70.0 First degree perineal laceration during delivery; Z3A.40 40 weeks gestation of pregnancy
CPT/HCPCS: 59025; 59050; 85025; 86850; 86900; 86901; 87426; 99218; J7120; A4216; G0378

== ENCOUNTER → 2023-04-19 | Outpatient (CLI) | payer OTHER, SELFPAY ==
[2023-04-19 16:00] LABS: hCG Titer Quant., Serum 1385 mIU/mL (1-3)
== END | disposition home or self-care (01) ==
PROVIDERS: PCP Family Medicine; Referring Provider Registered Nurse; Visit Provider Registered Nurse
DX: Z34.90 Encounter for supervision of normal pregnancy, unspecified, unspecified trimester (principal)
CPT/HCPCS: 36415; 84702; 87077; 87086; 87088; 87186

== ENCOUNTER → 2023-04-21 | Outpatient (CLI) | payer OTHER, SELFPAY ==
[2023-04-21 17:11] LABS: hCG Titer Quant., Serum 497 mIU/mL (1-3)
== END | disposition home or self-care (01) ==
LOC: LAB 16:10
PROVIDERS: PCP Family Medicine; Referring Provider Registered Nurse; Visit Provider Registered Nurse
DX: O03.9 Complete or unspecified spontaneous abortion without complication (principal)
CPT/HCPCS: 36415; 84702

== ENCOUNTER → 2023-04-23 | Outpatient (CLI) | payer OTHER, SELFPAY ==
--- OUTSIDE RECORDS SUMMARY | 2023-04-23 14:26 | XMS RPT_ITS | CCD ---
Author Name Unknown Address [address] [place] [address] Organization [facility] Care Team Providers Care Road Passenger Firer Name Role Phone OMAYRA CAMPBELL Unavailable Unavailable THANH PERLA Unavailable Unavailable Results Test Name Value Interpretation Reference Range Facil ity Encounters Encounter Date Encounter Type Care Provider Facility Start: 09-22-2017 End: 09-23-2017 Ambulatory OMAYRA CAMPBELL Facility:[facility] Date Payer Category Payer Unknown [id number] Summary Purpose Family History No Family History Records Found Advance Directives No Advanced Directives Records Found Additional Source Comments INFORMATION SOURCE (unrecogn ized section and content) FOR RECORDS PERTAINING TO PATIENTS WHO ARE OR HAVE BEEN ENROLLED IN A CHEMICAL DEPENDENCY/SUBSTANCEABUSE PROGRAM, SOME INFORMATION MAY BE OMITTED. This clinical summary was aggregated from multiple sources. Caution should be exercised in using it in the provision of clinical care. This summary normalizes information from multiple sources, and as a consequence, information in this document may materially change the coding, format and clinical context of patient data. In addition, data may be omitted in some cases. CLINICAL DECISIONS SHOULD BE BASED ON THE PRIMARY CLINICAL RECORDS. [facility]. provides no warranty or guarantee of the accuracy or completeness of information in this document.
[2023-04-23 15:32] LABS: hCG Titer Quant., Serum 240 mIU/mL (1-3)
== END | disposition home or self-care (01) ==
LOC: LAB 14:17
PROVIDERS: PCP Family Medicine; Referring Provider Registered Nurse; Visit Provider Registered Nurse
DX: O20.9 Hemorrhage in early pregnancy, unspecified (principal); Z3A.00 Weeks of gestation of pregnancy not specified
CPT/HCPCS: 36415; 84702

== ENCOUNTER → 2023-05-02 | Outpatient (CLI) | payer OTHER, SELFPAY ==
[2023-05-02 10:05] LABS: hCG Titer Quant., Serum 18 mIU/mL (1-3)
== END | disposition home or self-care (01) ==
LOC: LAB 08:45
PROVIDERS: PCP Family Medicine; Referring Provider Registered Nurse; Visit Provider Registered Nurse
DX: O03.9 Complete or unspecified spontaneous abortion without complication (principal)
CPT/HCPCS: 36415; 84702

== ENCOUNTER → 2023-05-09 | Outpatient (CLI) | payer OTHER, SELFPAY ==
--- OUTSIDE RECORDS SUMMARY | 2023-05-09 15:25 | XMS RPT_ITS | CCD ---
Author Name Unknown Address [address] [place] [address] Organization [facility] Care Team Providers Care Insurance Administrator Name Role Phone OMAYRA CAMPBELL Unavailable Unavailable THANH PERLA Unavailable Unavailable Results Test Name Value Interpretation Reference Range Facil ity Encounters Encounter Date Encounter Type Care Provider Facility Start: 09-22-2017 End: 09-23-2017 Ambulatory OMAYRA CAMPBELL Facility:[facility] Date Payer Category Payer Unknown [id number] Summary Purpose Family History No Family History [...] BE BASED ON THE PRIMARY CLINICAL RECORDS. [facility]. provides no warranty or guarantee of the accuracy or completeness of information in this document.
[2023-05-09 15:26] LABS: hCG Titer Quant., Serum 4 mIU/mL (1-3)
== END | disposition home or self-care (01) ==
LOC: LAB 13:44
PROVIDERS: PCP Family Medicine; Referring Provider Registered Nurse; Visit Provider Registered Nurse
DX: O03.9 Complete or unspecified spontaneous abortion without complication (principal)
CPT/HCPCS: 36415; 84702

== ENCOUNTER → 2023-08-25 | Outpatient (CLI) | payer OTHER, SELFPAY ==
[2023-08-25 11:04] LABS: Absolute Lymphocyte Count 1.75 X10^3/uL (0.83-4.51); Absolute Neutrophil Count 7.5 X10^3/uL (2.0-7.7); Basophil# 0.06 X10^3/uL; Basophil% 0.6 % (0-1); Eosinophil# 0.15 X10^3/uL; Eosinophils% 1.5 % (0-5); Hematocrit 38.9 % (37-47); Hemoglobin 13.4 g/dL (12.0-15.0); Lymphocyte # 1.75 X10^3/ul (0.83-4.51); Lymphocyte % 17.7 % (19-41); Mean Corp Hgb Conc 34.4 g/dL (32-36); Mean Corpuscular Hgb 29.5 pg (27.0-32.0); Mean Corpuscular Volume 85.7 fL (81-99); Mean Platelet Vol. 10.1 fl (6.2-12.0); Monocyte# 0.43 X10^3/uL; Monocyte% 4.4 % (0-10); NRBC Flagged by Analyzer 0 % (0-5); Neutrophil # 7.46 X10^3/uL (2.7-7.7); Neutrophil % 75.5 % (47-70); Platelet Count 274 K/mm3 (150-450); RBC Distribution Width SD 37.5 fl (35.1-43.9); Red Blood Count 4.54 M/mm3 (4.2-5.4); White Blood Count 9.9 K/mm3 (4.4-11.0)
[2023-08-25 11:43] LABS: ALB/GLOB Ratio 1.1 RATIO (0.9-2.4); AST(SGOT) 10 U/L (15-37); Alanine Aminotransfer ALT/SGPT 16 U/L (13-56); Alkaline Phosphatase 44 U/L (45-117); Anion Gap 4 (5-15); BUN 9 mg/dL (7-18); BUN/Creat Ratio 15.1 RATIO (10-20); Calcium,Total 9.5 mg/dL (8.5-10.1); Chloride 107 mmol/L (98-107); EST Glomerular Filtration Rate 125 mL/min (>60); Est Glom Filt Rate - Afr Amer 151 mL/min (>60); Globulin 3.6 g/dL (2.2-4.2); Glucose 101 mg/dL (74-106); Potassium 4.4 mmol/L (3.5-5.1); Protein, Total 7.6 g/dL (6.4-8.2); Sodium Level 138 mmol/L (136-145)
[2023-08-25 12:20] LABS: HIV - WCH Non-Reactive (Nonreactive); Hepatitis B Surface Antigen Non-Reactive (Nonreactive); Hepatitis C Antibody Non-Reactive (Nonreactive); Rubella IgG Reactive (Nonreactive); Syphilis Antibodies Non-reactive
[2023-08-28 20:07] LABS: Chlamydia By Nucleic Acid AMP Negative (Negative); Gonococcus By Nucleic Acid AMP Negative (Negative)
== END | disposition home or self-care (01) ==
PROVIDERS: PCP Family Medicine; Referring Provider Advanced Practice Midwife; Visit Provider Advanced Practice Midwife
DX: O09.90 Supervision of high risk pregnancy, unspecified, unspecified trimester (principal); Z3A.00 Weeks of gestation of pregnancy not specified
CPT/HCPCS: 36415; 80053; 85025; 86703; 86762; 86780; 86803; 86850; 86900; 86901; 87086; 87340; 87491; 87591

== ENCOUNTER → 2023-11-23 | Outpatient (CLI) | payer OTHER, SELFPAY ==
--- NOTE | 2023-11-23 13:30 | US_ITS ---
INDICATION: ANATIOMY W/ CERVICAL LENGTH EXAMINATION: Ultrasound US OB Complete W/ Detail single or first gestation TECHNIQUE: Transabdominal and transvaginal pelvic ultrasound was performed. COMPARISON: Prior study dated: 04/19/2023 LMP: 07/06/2023 Beta-hCG: Unknown. Provided EGA: 20 weeks 0 days FINDINGS: INTRAUTERINE GESTATION(s): Single. ESTIMATED GESTATIONAL AGE: 20 weeks 0 days ESTIMATED DUE DATE (YUKO): 04/11/2024 BIOMETRIC MEASUREMENTS: HEAD CIRCUMFERENCE: 17.46 cm which corresponds to 20 weeks 0 days. BIPARIETAL DIAMETER: 4.72 cm which corresponds to 20 weeks 2 days. ABDOMINAL CIRCUMFERENCE: 14.66 cm which corresponds to 20 weeks 0 days. FEMORAL LENGTH: 3.24 cm which corresponds to 20 weeks 1 day. The visualized cranium, chest, abdomen and pelvis, spine, and extremities are unremarkable. HEART MOTION is 143 bpm. MAXIMUM AMNIOTIC FLUID POCKET: 5 cm ESTIMATED WEIGHT: 329 g Percentile 49%. BIOPHYSICAL PROFILE (BPP): Not assessed. PRESENTATION: Cephalic PLACENTA: Posterior. There is no placenta previa or abruption. CERVIX: The cervix is closed. Cervical length 4.3 cm. FREE FLUID: None. IMPRESSION: Single live intrauterine of gestational age by ultrasound of 20 weeks 0 days. No acute abnormality. Electronically Signed: Darnell Muñoz MD at 23:29 EDT , INDICATION: ANATIOMY W/ CERVICAL LENGTH EXAMINATION: Ultrasound US OB Transvaginal TECHNIQUE: Transabdominal and transvaginal pelvic ultrasound was performed. COMPARISON: Prior study dated: 04/19/2023 LMP: 07/06/2023 Beta-hCG: Unknown. Provided EGA: 20 weeks 0 days FINDINGS: INTRAUTERINE GESTATION(s): Single. ESTIMATED GESTATIONAL AGE: 20 weeks 0 days ESTIMATED DUE DATE (YUKO): 04/11/2024 BIOMETRIC MEASUREMENTS: HEAD CIRCUMFERENCE: 17.46 cm which corresponds to 20 weeks 0 days. BIPARIETAL DIAMETER: 4.72 cm which corresponds to 20 weeks 2 days. ABDOMINAL CIRCUMFERENCE: 14.66 cm which corresponds to 20 weeks 0 days. FEMORAL LENGTH: 3.24 cm which corresponds to 20 weeks 1 day. The visualized cranium, chest, abdomen and pelvis, spine, and extremities are unremarkable. HEART MOTION is 143 bpm. MAXIMUM AMNIOTIC FLUID POCKET: 5 cm ESTIMATED WEIGHT: 329 g Percentile 49%. BIOPHYSICAL PROFILE (BPP): Not assessed. PRESENTATION: Cephalic PLACENTA: Posterior. There is no placenta previa or abruption. CERVIX: The cervix is closed. Cervical length 4.3 cm. FREE FLUID: None. US/OB Anatomy w/ Transvaginal
== END | disposition home or self-care (01) ==
PROVIDERS: PCP Family Medicine; Referring Provider Obstetrics & Gynecology; Visit Provider Obstetrics & Gynecology
DX: Z34.91 Encounter for supervision of normal pregnancy, unspecified, first trimester (principal); Z3A.11 11 weeks gestation of pregnancy
CPT/HCPCS: 76805; 76817

== ENCOUNTER → 2024-01-19 | Outpatient (CLI) | payer SELFPAY ==
[2024-01-19 10:36] LABS: Absolute Lymphocyte Count 1.18 X10^3/uL (0.83-4.51); Basophil# 0.05 X10^3/uL; Basophil% 0.6 % (0-1); Eosinophil# 0.11 X10^3/uL; Eosinophils% 1.3 % (0-5); Hematocrit 35.7 % (37-47); Hemoglobin 11.8 g/dL (12.0-15.0); Lymphocyte # 1.18 X10^3/ul (0.83-4.51); Lymphocyte % 13.6 % (19-41); Mean Corp Hgb Conc 33.1 g/dL (32-36); Mean Corpuscular Hgb 29.5 pg (27.0-32.0); Mean Corpuscular Volume 89.3 fL (81-99); Mean Platelet Vol. 10.2 fl (6.2-12.0); Monocyte# 0.28 X10^3/uL; Monocyte% 3.2 % (0-10); NRBC Flagged by Analyzer 0 % (0-5); Neutrophil # 7.01 X10^3/uL (2.7-7.7); Neutrophil % 80.6 % (47-70); Platelet Count 210 K/mm3 (150-450); RBC Distribution Width CV 12.8 % (11.6-14.6); RBC Distribution Width SD 42.2 fl (35.1-43.9); White Blood Count 8.7 K/mm3 (4.4-11.0)
[2024-01-19 11:19] LABS: Glucose Challenge Gest 1H 50g 95 mg/dL (70-140)
[2024-01-19 11:52] LABS: HIV - WCH Non-Reactive (Nonreactive); Syphilis Antibodies Non-reactive
== END | disposition home or self-care (01) ==
LOC: LAB 10:19
PROVIDERS: PCP Family Medicine; Referring Provider Obstetrics & Gynecology; Visit Provider Obstetrics & Gynecology
DX: O09.90 Supervision of high risk pregnancy, unspecified, unspecified trimester (principal); Z3A.00 Weeks of gestation of pregnancy not specified
CPT/HCPCS: 36415; 82950; 85025; 86703; 86780

== ENCOUNTER → 2024-03-13 | Outpatient (CLI) | payer OTHER, SELFPAY | END | disposition home or self-care (01) | LOC: LABSPEC 15:51 | PROVIDERS: Referring Provider Advanced Practice Midwife; Visit Provider Advanced Practice Midwife | DX: Z34.93 Encounter for supervision of normal pregnancy, unspecified, third trimester (principal) | CPT/HCPCS: 87081 ==

== ENCOUNTER 2024-04-14 21:50 | Inpatient (IN) | payer MEDICAID, SELFPAY ==
[2024-04-14] VITALS (21 sets, daily range): BP systolic 119–152; BP diastolic 75–86; PULSE 69–106; RESP 16–18; TEMP 36.3–36.8; O2SAT 88–100; BMI 26.2
[2024-04-14] MEDS: 0.9% Saline Lock 10 ML Syringe IV ×2 (22:00→22:21)
[2024-04-14] MEDS: Lactated Ringers 1,000 ML 999 ML IV (22:00)
[2024-04-14 22:12] LABS: Absolute Lymphocyte Count 1.12 X10^3/uL (0.83-4.51); Absolute Neutrophil Count 12.2 X10^3/uL (2.0-7.7); Basophil# 0.04 X10^3/uL; Basophil% 0.3 % (0-1); Eosinophil# 0.04 X10^3/uL; Eosinophils% 0.3 % (0-5); Hematocrit 36.1 % (37-47); Hemoglobin 12.6 g/dL (12.0-15.0); Lymphocyte # 1.12 X10^3/ul (0.83-4.51); Mean Corp Hgb Conc 34.9 g/dL (32-36); Mean Corpuscular Hgb 29.8 pg (27.0-32.0); Mean Corpuscular Volume 85.3 fL (81-99); Mean Platelet Vol. 10.3 fl (6.2-12.0); Monocyte# 0.55 X10^3/uL; Monocyte% 3.9 % (0-10); NRBC Flagged by Analyzer 0 % (0-5); Neutrophil # 12.17 X10^3/uL (2.7-7.7); Neutrophil % 87.2 % (47-70); Platelet Count 204 K/mm3 (150-450); RBC Distribution Width CV 12.4 % (11.6-14.6); RBC Distribution Width SD 38.3 fl (35.1-43.9); Red Blood Count 4.23 M/mm3 (4.2-5.4)
[2024-04-14] MEDS: Ondansetron 4 MG/2 ML Vial IV (22:20)
[2024-04-14 22:57] LABS: Syphilis Antibodies Non-reactive
[2024-04-14] MEDS: fentaNYL-bupivacaine (epidural) 100 ML BAG EPIDURAL (23:05)
[2024-04-14] MEDS: Lactated Ringers 1,000 ML 50 ML IV (23:17)
[2024-04-15] VITALS (38 sets, daily range): BP systolic 102–133; BP diastolic 59–91; PULSE 60–190; RESP 16; TEMP 36.2–36.9; O2SAT 81–98
--- NOTE | 2024-04-15 00:21 | HP.PCM.OB_ITS ---
HPI - General General Date of Admission: 04/14/24 HPI Narrative BERNARD GUTIERRES, is a 33 F who presents Maternal Data Information YUKO Calculator Estimated Delivery Date Method Current WG Current Estimate 04/11/24 [facility] History Seasonal allergies Bleeding in early Vaginal delivery Gestational HTN History of gestational hypertension Home Medications ?Medication ?Instructions ?Recorded ?Last Taken ?Type multivit-min no.71-iron fum 28 1 cap PO DAILY supplement 04/14/23 04/14/24 08:00 History mg-folate no.1 1 mg-dha 300 mg capsule (PNV-[place]) aspirin 81 mg chewable tablet 81 mg PO DAILY 04/14/24 04/14/24 08:00 History Allergy/AdvReac Type Severity Reaction Status Date / Time No Known Allergies Allergy Verified 04/14/24 21:39 Family History Father Diabetes Grandmother Breast cancer, Onset Age: 70 Maternal Grandfather Cancer, Onset Age: 85 parotid gland cancer Heart disease Mother Breast cancer, Onset Age: 60 Aunt Diabetes Paternal Uncle Diabetes paternal Surgical History [place] teeth extracted History of tonsillectomy and adenoidectomy Social History adopted: No household members: spouse and children number of children: 2 current occupational status: employed current occupation: [employer] current occupational exposures/hazards: No pets and animals: Yes pets and animals: dog(s) history of recent travel: Yes ([place]) out of state: Yes out of country: No sexually active: Yes Smoking Status: Never smoker second hand exposure: No alcohol intake: current alcohol intake frequency: holidays/special occasions only details: NOT WHILE substance use type: does not use well-balanced diet: daily or most days caffeine: No eating out: 1-3 times/week during the past year weight has: remained stable what type of physical activity do you participate in: none ana/anglican: Druze seatbelt use: always do you feel safe at home: Yes 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 Date Name GA/Weeks Outcome Route Bth Weight Gen Labor Lgth Anesthesia Del Locatn Provider FOB Unknown SAB 202212/06/19 Elver 37 live - full term 7lbs 2oz Male 13 h ours epidural [employer] SH Carson 08/15/21 Lacey 40 live - full term 7lbs 5oz Female e pidural [employer] Malina Merrill Delivery Date: 12/06/19 Last Updated by: Perla Blue GHTN- IoL at 37 weeks; heavy bleeding w/o hemorrhage- methergine given; 2nd degree laceration Delivery Date: 08/15/21 Last Updated by: Ibis Perry see problem list for complications Visit Details Expected Delivery Route/Plan Labor Preferences- CB/BF classes: [] labor support person: [] labor intervention preferences: [] pain management options preferred: [] cut cord/dad catch: [] : [] PP control planned: [] discussed possible routes of delivery and associated risks: [] special requests: [] Plans Covid status: [] Flu vaccine: given Tdap vaccine: given Rhogam: na LARC form signed: movement and labor precautions reviewed. Problem list reviewed and updated with the most current plan of care details and appropriate orders placed. Relevant counseling for the gestational age provided. Continue routine care and follow up unless otherwise noted in visit notes/problem list details OB Flowsheet Initial Weight: Not Recorded Date -?-?-?-?-?-?-?-?-?--?-?-?- EGA Weight BP Urine Prot -?-?-?-?-?-?-?-?-?-?-?-?- Glucose FHR FuHt Pres Dilation -?-?-?-?-?-?-?-?-?-?-?-?- Effaced St Visit Note 08/25/23 -?-?-?-?-?-?-?-?-?-?-?-?- 7w 1d 139 lb 6 oz 104/71 -?-?-?-?-?-?-?-?-?-?-?-?- 141 -?-?-?-?-?-?-?-?-?-?-?-?- kw-CRL cons with dates. Declines NIPT 09/22/23 -?-?-?-?-?-?-?-?-?-?-?-?- 11w 1d 143 lb 8 oz 120/71 Nega tive -?-?-?-?-?-?-?-?-?-?-?-?- Negative 140 -?-?-?-?-?-?-?-?-?-?-?-?- SM- no vb crampi ng 10/25/23 -?-?-?-?-?-?-?-?-?-?-?-?- 15w 6d 143 lb 120/72 Negative -?-?-?-?-?-?-?-?-?-?-?-?- Negative 145 -?-?-?-?-?-?-?-?-?-?-?-?- KW- no vb/crampi ng. US scheduled. would like to do appts in [place]. 11/23/23 -?-?-?-?-?-?-?-?-?-?-?-?- 20w 0d 148 lb 6 oz 110/76 Nega tive -?-?-?-?-?-?-?-?-?-?-?-?- Negative 145 -?-?-?-?-?-?-?-?-?-?-?-?- SM- no vb crampi ng 12/18/23 -?-?-?-?-?-?-?-?-?-?-?-?- 23w 4d 154 lb 6 oz 125/77 Nega tive -?-?-?-?-?-?-?-?-?-?-?-?- Negative 145 -?-?-?-?-?-?-?-?-?-?-?-?- JV- no lof, vagi nal bleeding, or cramping. starting baby asa 01/24/24 -?-?-?-?-?-?-?-?-?-?-?-?- 28w 6d 158 lb 119/74 Negative -?-?-?-?-?-?-?-?-?-?-?-?- Negative 145 28 -?-?-?-?-?-?-?-?-?-?-?-?- SM- no vb lof go od fm no regular ctx tdap today flu vaccine monday02/07/24 -?-?-?-?-?-?-?-?-?-?-?-?- 30w 6d 161 lb 121/80 Negative -?-?-?-?-?-?-?-?-?-?-?-?- Negative 140 30 -?-?-?-?-?-?-?-?-?-?-?-?- KW- no vb/lof/ct x. good fm. flu shot monday. LARC done. doing well 02/21/24 -?-?-?-?-?-?-?-?-?-?-?-?- 32w 6d 161 lb 104/69 Negative -?-?-?-?-?-?-?-?-?-?-?-?- Negative 140 33 -?-?-?-?-?-?-?-?-?-?-?-?- KW- no vb.lof.ct x good fm. no concerns today. chiropractor and stretching for low back soreness. discussion on natural childbirth options. 03/07/24 -?-?-?-?-?-?-?-?-?-?-?-?- 35w 0d 163 lb 4 oz 122/85 Nega tive -?-?-?-?-?-?-?-?-?-?-?-?- Negative 145 35 -?-?-?-?-?-?-?-?-?-?-?-?- JV- no lof, vagi nal bleeding, or dec fm. no overall complaints. 03/13/24 -?-?-?-?-?-?-?-?-?-?-?-?- 35w 6d 164 lb 8 oz 111/74 Nega tive -?-?-?-?--?-?-?-?-?-?-?-?- Negative 135 35 -?-?-?-?-?-?-?-?-?-?-?-?- KW- no vb/lof/ct x. good fm. GBS today. 03/19/24 -?-?-?-?-?-?-?-?-?-?-?-?- 36w 5d 166 lb 112/73 Trace -?-?-?-?-?-?-?-?-?-?-?-?- Negative 135 36 -?-?-?-?-?-?-?-?-?-?-?-?- KW- no vb/lof/ct x. good fm 03/28/24 -?-?--?-?-?-?-?-?-?-?-?-?- 38w 0d 166 lb 126/81 Negative -?-?-?-?-?-?-?-?-?-?-?-?- Negative 145 37 Cephalic 2 .5 -?-?-?-?-?-?-?-?-?-?-?-?- 70 -2 KW- no vb/ lof/ctx. good fm. labor precautions 04/04/24 -?-?-?-?-?-?-?-?-?-?-?-?- 39w 0d 165 lb 119/81 Negative -?-?-?-?-?-?-?-?-?-?-?-?- Negative 140 37 Cephalic 2 .5 -?-?-?-?-?-?-?-?-?-?-?-?- 70 -2 KW- no vb/ lof/ctx. good fm. membrane sweep requested today. 04/11/24 -?-?-?-?-?-?-?-?-?-?-?-?- 40w 0d 162 lb 8 oz 131/78 Nega tive -?-?-?-?-?-?-?-?-?-?-?-?- Negative 141 38 Cephalic 2 .5 -?-?-?-?-?-?-?-?-?-?-?-?- 70 -2 JV- no lof , vaginal bleeding, or dec fm. membrane sweep today per her request. IOL set up for 41 weeks. NST FHR Rate Baby A Baseline: 140 Variability:: Moderate Accelerations:: 15 x 15 Decelerations:: None NST Reactive:: Yes FHR Category:: Category I Uterine Activity:: q3-5 ROS Constitutional Constitutional: Reports systems reviewed and no addt'l complaints, except as documented ENT HEENT: Reports systems reviewed and no addt'l complaints, except as documented Cardiovascular Cardiovascular: Reports systems reviewed and no addt'l complaints, except as documented Respiratory/Chest Respiratory/Chest: Reports systems reviewed and no addt'l complaints, except as documented Gastrointestinal Gastrointestinal: Reports systems reviewed and no addt'l complaints, except as documented and nausea; Denies abdominal pain Genitourinary Genitourinary: Reports systems reviewed and no addt'l complaints, except as documented, contractions Details: present and frequency (regular ) and movement Details: present Musculoskeletal Musculoskeletal: Reports systems reviewed and no addt'l complaints, except as documented Integumentary Integumentary: Reports as per HPI Neurologic Neurologic: Reports systems reviewed and no addt'l complaints, except as documented Endocrine Endocrinology: Reports systems reviewed and no addt'l complaints, except as documented Vital Signs Vital Signs Vital Signs: 04/14/24 21:29 04/14/24 21:29 04/14/24 21:29 Temperature 97.4 F L Temperature Source Temporal Pulse Rate Respiratory Rate 16 Blood Pressure BP Systolic BP Diastolic Pulse Ox 04/14/24 22:47 04/14/24 22:47 04/14/24 22:48 Temperature Temperature Source Pulse Rate 77 Respiratory Rate Blood Pressure 139/86 H BP Systolic 139 BP Diastolic 86 Pulse Ox 100 04/14/24 22:48 04/14/24 22:50 04/14/24 22:50 Temperature Temperature Source Pulse Rate 83 83 Respiratory Rate Blood Pressure 120/76 BP Systolic 120 BP Diastolic 76 Pulse Ox 04/14/24 22:50 04/14/24 22:52 04/14/24 22:52 Temperature Temperature Source Pulse Rate 83 Respiratory Rate 18 Blood Pressure BP Systolic BP Diastolic Pulse Ox 100 04/14/24 22:53 04/14/24 22:53 04/14/24 22:56 Temperature Temperature Source Pulse Rate 95 Respiratory Rate Blood Pressure 122/75 H BP Systolic 122 BP Diastolic 75 Pulse Ox 91 04/14/24 22:56 04/14/24 22:56 04/14/24 22:57 Temperature Temperature Source Pulse Rate 82 106 H Respiratory Rate 18 Blood Pressure BP Systolic BP Diastolic Pulse Ox 04/14/24 22:57 04/14/24 23:03 04/14/24 23:03 Temperature Temperature Source Pulse Rate 90 Respiratory Rate Blood Pressure 152/86 H BP Systolic 152 BP Diastolic 86 Pulse Ox 99 04/14/24 23:03 04/14/24 23:03 04/14/24 23:03 Temperature Temperature Source Pulse Rate 104 H Respiratory Rate Blood Pressure BP Systolic BP Diastolic Pulse Ox 88 100 04/14/24 23:06 04/14/24 23:06 04/14/24 23:06 Temperature Temperature Source Temporal Pulse Rate 87 Respiratory Rate Blood Pressure 145/86 H BP Systolic 145 BP Diastolic 86 Pulse Ox 04/14/24 23:06 04/14/24 23:06 04/14/24 23:08 Temperature 98.2 F Temperature Source Pulse Rate 85 Respiratory Rate 16 Blood Pressure BP Systolic BP Diastolic Pulse Ox 04/14/24 23:08 04/14/24 23:11 04/14/24 23:11 Temperature Temperature Source Pulse Rate 76 Respiratory Rate Blood Pressure 127/76 H BP Systolic 127 BP Diastolic 76 Pulse Ox 99 04/14/24 23:11 04/14/24 23:13 04/14/24 23:13 Temperature Temperature Source Pulse Rate 69 Respiratory Rate 18 Blood Pressure BP Systolic BP Diastolic Pulse Ox 96 04/14/24 23:18 04/14/24 23:18 04/14/24 23:23 Temperature Temperature Source Pulse Rate 90 76 Respiratory Rate Blood Pressure BP Systolic BP Diastolic Pulse Ox 99 04/14/24 23:23 04/14/24 23:28 04/14/24 23:28 Temperature Temperature Source Pulse Rate 82 Respiratory Rate Blood Pressure BP Systolic BP Diastolic Pulse Ox 99 99 04/14/24 23:29 04/14/24 23:29 04/14/24 23:31 Temperature Temperature Source Pulse Rate 85 Respiratory Rate Blood Pressure 119/76 126/80 H BP Systolic 119 126 BP Diastolic 76 80 Pulse Ox 04/14/24 23:31 04/14/24 23:31 04/14/24 23:33 Temperature Temperature Source Pulse Rate 80 76 Respiratory Rate 16 Blood Pressure BP Systolic BP Diastolic Pulse Ox 04/14/24 23:33 04/14/24 23:36 04/14/24 23:36 Temperature Temperature Source Pulse Rate 75 Respiratory Rate Blood Pressure 128/79 H BP Systolic 128 BP Diastolic 79 Pulse Ox 98 04/14/24 23:36 04/14/24 23:38 04/14/24 23:38 Temperature Temperature Source Pulse Rate 79 Respiratory Rate 16 Blood Pressure BP Systolic BP Diastolic Pulse Ox 99 Weight Weight: 162 lb 12.8 oz Body Mass Index (BMI) 26.2 Physical Exam Const alert, oriented x3 and healthy appearing Constitutional Narrative: uncomfortable with contractions HEENT normocephalic and moist oral mucous membranes Head and Scalp: atraumatic Neck full ROM, no lymphadenopathy, supple and thyroid normal General: trachea midline Thyroid: thyroid normal Lymph Lymphatic: no lymphadenopathy noted Chest inspection of chest normal Resp normal respiratory effort Cardio regular rate GI soft to palpation and non-tender GI Narrative: gravid Inspection: gravid external exam normal Bimanual Exam - Vag & Uterus: uterus non-tender Manual OB Exam: estimated gestational size appropriate, presentation cephalic, dilated, effaced and station Extremity normal to inspection General Extremity: Negative for edema Skin no rashes or lesions noted Neuro deep tendon reflexes 2+ bilaterally Motor Exam: strength 5/5 throughout and clonus absent Psych mental status grossly normal Labs Labs Labs: Blood Type A POSITIVE Antibody Screen NEGATIVE Hct 36.1 % (37-47) L Hgb 12.6 g/dL (12.0-15.0) Obstetrics Ultrasound Syphilis Total Ab Non-reactive Rubella IgG Antibody Reactive (Nonreactive) Hep Bs Antigen Non-Reactive (Nonreactive) Hepatitis C Antibody Non-Reactive (Nonreactive) Chlamydia DNA ([place]) Negative (Negative) N.gonorrhoeae DNA ([place]) Negative (Negative) HIV 1&2 Antibody Non-Reactive (Nonreactive) Glucose 1 Hr 50 gm 95 mg/dL (70-140) Rhogam given: No Assessment & Plan (1) Active labor at term: PLAN: Plan Patient presents IAL, plan expectant management for , pitocin/AROM PRN if needed. Pain management: plans epidural. GBS neg Management of any complications: none I have reviewed the [facility] and made any clinically relevant updates.
[2024-04-15] MEDS: Oxytocin 10 UNITS/ML Vial IM (00:28)
--- NOTE | 2024-04-15 01:08 | EX.PCM.OBVAG ---
Assessment & Plan (1) Active labor at term: (2) Vaginal delivery: COMMENT: SM Sujata girl 42 Maternal Data Information YUKO Calculator Estimated Delivery Date Method Current WG Current Estimate 04/11/24 LMP (Certain) 40w 4d Vaginal Delivery Maternal Presentation Maternal Presentation: see assessment and plan Vaginal Delivery Information Procedure Performed: Spontaneous Vaginal Delivery Surgeon/Practitioner: Trisha Childs Date of Procedure: 04/15/24 Pre-Procedure Diagnosis: see assessment and plan Post-Procedure Diagnosis: same Type of anesthesia: Epidural Estimated Blood Loss: 200 Findings Description of procedure: Patient began pushing and delivered the head in the BRANDEN presentation. The head was delivered atraumatically and a loose nuchal cord ?1 was identified and easily reduced over the 's head. The anterior and posterior shoulders delivered without complication followed by the rest of the infant and the infant was placed on the maternal abdomen. Delayed cord clamping was employed for approximately 60 seconds. Cord was clamped and cut and gentle traction was applied to the cord and the placenta delivered spontaneously immediately following it was noted to be intact with three-vessel cord. The perineum and vagina were inspected and noted to have no laceration. EBL was 200. Patient and tolerated delivery well. Presentation: Vertex Placental Delivery Description: Spontaneous Specimen collected: Yes Description of specimen(s) removed: placenta Typewriter Tester er registrar: No Post Vaginal Deli Medications given after delivery: Other (pitocin) Complication Complications: No Multi Select Codes Urinary/Genital Urinary/Genital CPT Codes: 67083 Vaginal Delivery [facility]
--- NOTE | 2024-04-15 01:09 | PCM.DC ---
Discharge Instructions Diet Discharge Diet: No restrictions DC O2, CPAP, BIPAP needs Home O2 Discharge instructions: No Dressing / Incision Discharge Activity: Return to Normal Activity, May Not Drive (while taking narcotic pain medications.) and May Shower May resume sexual activity in: 4-6 weeks Dressing / Incision Call your doctor if your incision/area has: Continuous Slow Oozing, Sudden Increased Bleeding, Increased Pain/ Swelling, Increased Redness and Foul Smelling Discharge Follow Up Care Please Follow Up With: Trisha Childs MD When: Call [phone] to make an appointment with your doctor in 6 weeks. If you had elevated blood pressure or 4th degree laceration, you will need to be seen in 2 weeks. Test Results: Test results from this visit will be discussed in further detail at your follow-up appointment, if applicable. Discharge Plan Admission Admit Date/Time: 04/14/24 21:50 Attending Provider: Trisha Childs Discharge Orders/Prescriptions Prescriptions: No Action PNV-[place] 28-1-300 mg capsule 1 cap PO DAILY aspirin 81 mg tablet,chewable 81 mg PO DAILY
[2024-04-15] MEDS: Oxytocin 15 Units/NS 250ml 15 UNITS/250 ML IV.SOLN 83 UNITS IV (01:34)
[2024-04-15] MEDS: Naproxen 500 MG Tablet PO (04:17)
[2024-04-16 02:00] VITALS: BP 104/77; PULSE 81; RESP 16; TEMP 36.6; O2SAT 100
[2024-04-16 07:27] VITALS: BP 106/68; PULSE 74; RESP 16; TEMP 36.4; O2SAT 97
--- NOTE | 2024-04-16 08:35 | PCM.PN.CNM ---
Subjective Subjective Patient doing well without complaints. Tolerating PO. Ambulating and voiding without difficulty. Feeding well. Denies chest pain, shortness of breath, calf pain/swelling, fevers, chills, lightheadedness. Objective Data Objective Data Vital Signs: Vital Signs Temp Pulse Resp BP Pulse Ox O2 Del Method 97.5 F L 74 16 106/68 97 Room Air 04/16/24 07:27 04/16/24 07:27 04/16/24 07:27 04/16/24 07:27 04/16/24 07:27 04/16/24 07:27 Oxygen Delivery Method Room Air Weight: 162 lb 12.8 oz Body Mass Index (BMI) 26.2 Intake & Output: Intake and Output for Last 24 Hours 04/14/24 04/15/24 04/16/24 23:59 23:59 23:59 Intake Total 1000 / 1000 316.67 / 316.67 Output Total 100 / 100 200 / 200 Balance 900 / 900 116.67 / 116.67 Lab / Micro Data 04/14/24 22:00 Physical Exam Const alert and oriented x3 Neck full ROM Lymph Lymphatic: no lymphadenopathy noted Chest inspection of chest normal and palpation of chest normal Resp normal respiratory effort and normal air movement Cardio regular rate and regular rhythm GI normal to inspection, nondistended, normoactive bowel sounds Uterus Palpation: uterus fundus firm Extremity normal to inspection and full ROM Extremity Narrative: mild PE Skin no rashes or lesions noted Psych mental status grossly normal Assessment & Plan (1) Vaginal delivery: COMMENT: NORRIS RAMOS Sujata girl 40 PLAN: s/p PPD # 1 1. routine post delivery care 2. breast feeding- support given 3. rh positive 4. rubella immune 5. d/c home today
--- NOTE | 2024-04-16 08:37 | PCM.DC.SUM ---
Providers Date of Admission: 04/14/24 Reason For Visit: R/O LABOR Diagnosis Discharge Diagnosis (1) Vaginal delivery: Status: Acute Code(s): O80 - Encounter for full-term uncomplicated delivery Plan: s/p PPD # 1 1. routine post delivery care 2. breast feeding- support given 3. rh positive 4. rubella immune 5. d/c home today Medications at Discharge Home Medications multivit-min no.71-iron fum 28 mg-folate no.1 1 mg-dha 300 mg capsule (PNV-[place]) 1 cap PO DAILY supplement 04/14/23 aspirin 81 mg chewable tablet 81 mg PO DAILY 04/14/24 Hospital Course Operations None Procedures None Summary of Care Provided Hospital Course: with normal pp course. Physical Exam Const alert and oriented x3 Neck full ROM Lymph Lymphatic: no lymphadenopathy noted Chest inspection of chest normal and palpation of chest normal Resp normal respiratory effort and normal air movement Cardio regular rate and regular rhythm GI normal to inspection, nondistended, normoactive bowel sounds Uterus Palpation: uterus fundus firm Extremity normal to inspection and full ROM Extremity Narrative: mild PE Skin no rashes or lesions noted Psych mental status grossly normal Weight / BMI Weight Weight: 162 lb 12.8 oz Body Mass Index (BMI) 26.2 ABG / Lab / Microbiology Data 04/14/24 22:00 D/C Instructions Discharge Diet: No restrictions May resume sexual activity in: 4-6 weeks Call your doctor if your incision/area has: Continuous Slow Oozing, Sudden Increased Bleeding, Increased Pain/ Swelling, Increased Redness and Foul Smelling Discharge DC O2, CPAP, BIPAP Needs Home O2 Discharge instructions: No Please Follow Up With: Trisha Childs MD When: Call [phone] to make an appointment with your doctor in 6 weeks. If you had elevated blood pressure or 4th degree laceration, you will need to be seen in 2 weeks. Meaningful Use Info Meaningful Use Meaningful Use Diagnoses (Choose all that apply): None applicable Ischemic Stroke Statin Dosing Therapy Reference: STATIN DOSE THERAPY REFERENCE: * Patients > 75 years receive moderate or high dose statin therapy. * Patients 75 years or YOUNGER should receive HIGH intensity statin dose unless contraindicated. You will be required to document reason for non-treatment if statin daily dose does not meet guidelines. HIGH DOSE STATIN THERAPY DAILY Atorvastatin > than or = to 40 mg Rosuvastatin > than or = to 20 mg Amlodipine + Atorvastatin > than or = to 2.5/40 mg Ezetimibe + Simvastatin 10/80 mg Simvastatin 80mg Discharge Plan Admission Admit Date/Time: 04/14/24 21:50 Attending Provider: Trisha Childs Discharge Orders/Prescriptions Prescriptions: No Action PNV-[place] 28-1-300 mg capsule 1 cap PO DAILY aspirin 81 mg tablet,chewable 81 mg PO DAILY Disposition Disposition (needs filled in before D/C Order can be placed): Home, Self Care
== END 2024-04-16 11:20 | disposition home or self-care (01) | DRG 560 ==
LOC: WPOUT 21:59 → WP 21:59
PROVIDERS: Admitting Provider Obstetrics & Gynecology; Visit Provider Obstetrics & Gynecology
DX: O69.81X0 Labor and delivery complicated by cord around neck, without compression, not applicable or unspecified (principal); Z37.0 Single live birth; Z3A.40 40 weeks gestation of pregnancy; Z79.82 Long term (current) use of aspirin; Z87.59 Personal history of other complications of pregnancy, childbirth and the puerperium
CPT/HCPCS: 59025; 59050; 85025; 86780; 86850; 86900; 86901; 99221; A4216; G0378; J2405

== ENCOUNTER → 2024-05-27 | Outpatient (CLI) | payer MEDICAID, SELFPAY ==
[2024-05-30 09:08] LABS: HPV APTIMA, High Risk Negative (Negative)
== END | disposition home or self-care (01) ==
LOC: LABSPEC 10:25
PROVIDERS: Referring Provider Nurse Practitioner Women's Health; Visit Provider Nurse Practitioner Women's Health
DX: Z12.4 Encounter for screening for malignant neoplasm of cervix (principal)
CPT/HCPCS: 87624; 88175; G0145

== ENCOUNTER → 2025-04-21 | Outpatient (CLI) | payer MEDICAID, SELFPAY ==
[2025-04-21 15:32] LABS: hCG Titer Quant., Serum 620 mIU/mL (<9 non-preg)
== END | disposition home or self-care (01) ==
PROVIDERS: Visit Provider Obstetrics & Gynecology
DX: O03.9 Complete or unspecified spontaneous abortion without complication (principal)
CPT/HCPCS: 36415; 84702

== ENCOUNTER → 2025-04-23 | Outpatient (CLI) | payer MEDICAID, SELFPAY ==
--- OUTSIDE RECORDS SUMMARY | 2025-04-23 12:21 | XMS RPT_ITS | CCD ---
Author Organization [facility] CliniSyct Care Team Providers Care Amusement Park Entertainer Name Role Phone OMAYRA CAMPBELL Unavailable Unavailable THANH PERLA Unavailable Unavailable Dr. Job Alatorre Primary Care Provider Dr. Job Alatorre Referring Provider Dr. Trisha Childs Attending Provider Dr. Malina Merrill Attending Provider [phone] Dr. Malina Merrill Admit Provider Dr. Malina Merrill Other Provider Dena MILL CRANE OPERATOR, CRISTINO-Margarito Bernal Attending Provider Dr. Job Alatorre Primary Care Provider Dr. Job Alatorre Referring Provider FILIBERTO Larson Attending Provider Dr. Job Alatorre Primary Care Provider Dr. Job Alatorre Referring Provider [phone] FILIBERTO Grande Attending Provider Ronald CAMPBELL MD Unavailable CRISTINA MILIAN, UBALDO Unavailable ALMAZ Unavailable Unavailable JESSEE MILIAN, THANH Waterman Unavailable [phone] Luciano HADLEY, Natalee Unavailable Unavailable JOB ALATORRE MD Unavailable RUSSELL HADLEY, MIKE Unavailable Unavailable Trisha Fair Unavailable Unavailable Nita Mondragon Unavailable Unavailable Carolyn RN, Anna Unavailable UnavailEDMOND Xiong Unavailable Unavailable Court HADLEY, Bonnie Unavailable Unavailable Unavailable Unavailable Abena Grande Attending Unavailable Alatorre, Job Referring Unavailable HimaonyTrisha Consulting Unavailable Marcanthony, Trisha Admitting Unavailable Britany Larson Attending Unavailable Alatorre, Job Referring Unavailable Abena Grande Attending Unavailable Vande Velde, Malina Attending Unavailabl e Alatorre, Job Primary Care Unavailable Alatorre, Job Referring Unavailable Abena Grande Attending Unavailable Alatorre, Job Referring Unavailable Alatorre, Job Referring Unavailable Abena Grande Attending Unavailable Marcanthony, Trisha Attending Unavailable Vande Velde, Malina Attending Unavailabl e Alatorre, Job Referring Unavailable Marcanthony, Trisha Admitting Unavailable Marcanthony, Trisha Attending Unavailable Marcanthony, Trisha Attending Unavailable Alatorre, Job Primary Care Unavailable Alatorre, Job Referring Unavailable Marcanthony, Trisha Referring Unavailable Marcanthony, Trisha Attending Unavailable Alatorre, Job Primary Care Unavailable Dena MILL CRANE OPERATOR, Dolores Referring Unavailable Dena MILL CRANE OPERATOR, Dolores Attending Unavailable Vande Velde, Malina Referring Unavailabl e Vande Velde, Malina Attending Unavailabl e Alatorre, Job Primary Care Unavailable Abena Grande Attending Unavailable Abena Grande Referring Unavailable Abena Grande Attending Unavailable Alatorre, Job Primary Care Unavailable Alatorre, Job Referring Unavailable Fortune MILL CRANE OPERATOR, Opal Attending Unavailable Dena MILL CRANE OPERATOR, Dolores Attending Unavailable Abena Grande Attending Unavailable Alatorre, Job Primary Care Unavailable Alatorre, Job Referring Unavailable Abena Grande Attending Unavailable Alatorre, Job Referring Unavailable Marcanthony, Trisha Attending Unavailable Alatorre, Job Primary Care Unavailable Alatorre, Job Referring Unavailable Vande Velde, Malina Attending Unavailabl e Alatorre, Job Referring Unavailable Medications Current Medications Medication Drug Class(es) Dates Sig (Normalized) Sig (Original) Multivitamin Adults Oral Tablet (8 sources) take 1 tablet by mouth once daily Multivitamin Adults Oral Tablet ; 1 daily Comments: OTC Comment on above: OTC Mv-Mins 63-Qmcm-Rawqy No.1-Dha (P[facility]) 28-1-300 mg capsule (6 sources) Start: 04-14-2023 take 1 capsule by mouth once Mv-Mins 60-Uolh-Hvyvq No.1-Dha (Pnv-[place]) 28-1-300 mg capsule Active CAP PO April 14, 2023 1:00am Start: 04-14-2023 take 1 capsule by mouth once M v-Mins 03-Gvuj-Fxswy No.1-Dha (Pnv-[place]) 28-1-300 mg capsule Active CAP PO April 14, 2023 12:00am Vit,Yeni51-Wbuf-Lwwhk (8 sources) Start: 12-03-2019 take 1 tablet by mouth once daily Vit,Ksqs94-Phwx-Ysafc Active 1 TABLET PO DAILY December 03, 2019 1:00pm Start: 12-03-2019 End: 10-20-2022 take 1 tablet by mouth once daily Vit,Lxrt40-Xwxo-Onabs Discontinued 1 TABLET PO DAILY December 03, 2019 12:00am October 20, 2022 10:27am Start: 12-03-2019 End: 10-20-2022 take 1 tablet by mouth once daily Vit,Fsmu59-Xvcu-Tzdmy Discontinued 1 TABLET PO DAILY December 02, 2019 11:00pm October 20, 2022 9:27am Completed/Discontinued Medications Medication Drug Class(es) Dates Sig (Normalized) Sig (Original) amoxicillin 875 mg / clavulanate 125 mg oral tablet (8 sources) Penicillin-class Antibacterial Start: 05-28-2018 End: 06-07-2018 take 1 tablet by mouth twice daily Augmentin 875-125 MG Oral Tablet ; 1 (one) Tablet bid for 10 days Quantity: 20 {Tablet} Refills: 0 Ordered: 28-May-2018 MD Ronald CAMPBELL Start: 28-May-2018 End: 07-Jun-2018 Status: Inactive Comments: Cancelled at [facility], phoned To [facility] Comment on above: Cancelled at [facility] , phoned To [facility] aspirin 81 mg delayed release oral tablet (8 sources) Platelet Aggregation Inhibitor, Nonsteroidal Anti-inflammatory Drug Start: 04-08-2021 End: 08-15-2021 take 81 mg by mouth once daily Aspirin Discontinued 81 MG PO DAILY April 08, 2021 1:00am August 15, 2021 6:56am benzonatate 200 mg oral capsule (8 sources) Non-narcotic Antitussive Start: 05-28-2018 End: 06-07-2018 take 1 capsule by mouth every eight hours as needed for cough Benzonatate 200 MG Oral Capsule ; 1 (one) Capsule every 8 hours prn cough for 10 days Quantity: 30 {Capsule} Refills: 0 Ordered: 28-May-2018 MD Ronald CAMPBELL Start: 28-May-2018 End: 07-Jun-2018 Status: Inactive Comments: Cancelled at [facility], phoned To [facility] Comment on above: Cancelled at [facility] , phoned To [facility] chromium picolinate 0.1 mg / inulin 2000 mg chewable tablet (8 sources) Start: 12-06-2019 End: 12-22-2020 Inulin-Chromium Picolinate Discontinued 1 EACH PO NEEDED December 06, 2019 12:00am December 22, 2020 1:46pm doxycycline hyclate 100 mg oral capsule (8 sources) Tetracycline-class Drug take 1 capsule by mouth once daily DOXYCYCLINE HYCLATE, 100MG (Oral Capsule) ; 1 daily (100 MG) Status: Inactive Comments: [facility] Comment on above: [facility] drospirenone / Ethinyl Estradiol (20 sources) Progestin, Estrogen Start: 03-18-2013 End: 11-01-2013 take 1 tablet by mouth once daily NOVA, 3-0.02MG (Oral Tablet) ; 1 Tablet daily for 28 days Quantity: 28 {Tablet} Refills: 11 Ordered: 01-Nov-2013 LEONIE Leon Start: 18-Mar-2013 End: 01-Nov-2013 Status: Inactive Comments: Vilma HEATH GIANVI, 3-0.02MG (Oral Tablet) ; (3-0.02 MG) Status: Inactive Comments: for acne from derm. take 1 tablet by mouth once vincent y YARA, 3-0.02MG (Oral Tablet) ; 1 daily (3- 0.02 MG) Status: Inactive Comments: From DR. Givens [employer] Comment on above: for acne from derm. From DR. Dunbar n [employer] Vilma HEATH estradiol 0.1 mg/ml vaginal cream (6 sources) Estrogen Start: 02-08-20 End: 10-21-19 Estradiol Discontinued 0 VAGINAL .COMPLEX 42.5 February 07, 2022 12:00am October 20, 2022 10:27am small amount as directed vaginal every other day X 4 weeks then twice a week; 12 hr guaiFENesin 1200 mg / pseudoephedrine hydrochloride 120 mg extended release oral tablet (8 sources) alpha-Adrenergic Agonist Start: 05-28-19 End: 06-07-19 take 120-1200 mg by mouth every twelve hours Mucinex D Max Strength 120-1200 MG Oral Tablet Extended Release 12 Hour ; 1 (one) Tablet bid for 10 days Quantity: 20 {Tablet} Refills: 0 Ordered: 28-May-2018 MD Ronald CAMPBELL Start: 28-May-2018 End: 07-Jun-2018 Status: Inactive Comments: Cancelled at [facility], phoned To [facility] Comment on above: Cancelled at [facility] , phoned To [facility] ibuprofen 600 mg oral tablet (7 sources) Nonsteroidal Anti-inflammatory Drug Start: 08-16-19 End: 10-15-19 take 1 tablet by mouth every six hours as needed for pain Ibuprofen Discontinued 600 MG PO EVERY 6 HOURS 28 August 15, 2021 12:00am October 14, 2021 1:57pm one tab every 6 hrs as needed for mild to moderate pain Multivitamin preparation (6 sources) Start: 10-21-19 End: 04-14-20 take 1 tablet by mouth once daily Multivitamin Discontinued 1 TABLET PO DAILY October 20, 2022 12:00am April 14, 2023 2:52pm Start: 10-20-2022 End: 04-14-2023 take 1 tablet by mouth once daily Multivitamin Discontinued 1 TABLET PO DAILY October 19, 2022 11:00pm April 14, 2023 1:52pm naproxen 500 mg oral tablet (8 sources) Nonsteroidal Anti-inflammatory Drug Start: 11-01-2013 End: 11-15-2013 take 1 tablet by mouth twice daily as needed NAPROXEN, 500MG (Oral Tablet) ; 1 (one) Tablet two times daily, as needed for 14 days Quantity: 28 {Tablet} Refills: 0 Ordered: 06-Aug-2014 MD JOB ALATORRE Start: 01-Nov-2013 End: 15-Nov-2013 Status: Inactive Comments: Medication taken as needed. Comment on above: Medication taken as needed. Vitamin 27-0.8 MG Oral Tablet (8 sources) Vitamin 27-0.8 MG Oral Tablet ; 1 daily (27-0.8 MG) Status: Inactive Problems Active Problems Problem Classification Problem Date Documented Date Episodic/Chronic Cardiac dysrhythmias (20 sources) Tachycardia; Translations: [Tachycardia, unspecified] 08-03-2010 Episodic Diseases of white blood cells (8 sources) Neutrophilia; Translations: [Disorder of white blood cells, unspecified] 06-23-2010 Chronic Hemorrhage during ; abruptio placenta; placenta previa (11 sources) Antepartum hemorrhage; Translations: [Hemorrhage in early , unspecified] 04-18-2023 Episodic Hypertension complicating ; childbirth and the puerperium (18 sources) -induced hypertension; Translations: [Gestational [-induced] hypertension without significant proteinuria, unspecified trimester] Episodic Immunizations and screening for infectious disease (20 sources) Requires diphtheria, tetanus and pertussis vaccination; Translations: [Encounter for immunization] Onset: 02-21-2024 09-27-2019 Episodic Other complications of (7 sources) High risk ; Translations: [Supervision of high risk , unspecified, unspecified trimester] 04-14-2023 Episodic Other complications of (1 source) H/O: miscarriage; Translations: [Supervision of with other poor reproductive or obstetric history, unspecified trimester] 08-11-2023 Episodic Other and delivery including normal (20 sources) Supervision of other normal ; Translations: [] Onset: 12-20-2023 Episodic Other screening for suspected conditions (not mental disorders or infectious disease) (20 sources) Patient encounter status; Translations: [Encounter for screening for lipoid disorders] Onset: 06-10-2024 12-31-2015 Episodic Other skin disorders (16 sources) Acne; Translations: [Acne, unspecified] 03-18-2013 Episodic Other upper respiratory disease (8 sources) Nasal congestion; Translations: [Nasal congestion] 12-18-2020 Episodic Otitis media and related conditions (8 sources) Acute suppurative otitis media without spontaneous rupture of ear drum; Translations: [Acute suppurative otitis media without spontaneous rupture of ear drum, bilateral] 05-28-2018 Episodic Residual codes; unclassified (8 sources) History of vaccination; Translations: [Personal history of other drug therapy] 05-06-2021 Episodic Residual codes; unclassified (8 sources) Gestation period, 36 weeks; Translations: [36 weeks gestation of ] 12-18-2020 Episodic Residual codes; unclassified (8 sources) Gestation period, 37 weeks; Translations: [37 weeks gestation of ] 12-18-2020 Episodic Residual codes; unclassified (8 sources) History of gestational hypertension; Translations: [Personal history of other complications of , childbirth and the puerperium] 04-14-2023 Episodic Spontaneous (11 sources) Complete miscarriage; Translations: [Complete or unspecified spontaneous without complication] 04-19-2023 Episodic Sprains and strains (16 sources) Strain of muscle of upper limb; Translations: [Strain of unspecified muscle, fascia and tendon at shoulder and upper arm level, unspecified arm, initial encounter] 11-01-2013 Episodic Syncope (8 sources) Collapse; Translations: [Syncope and collapse] 12-31-2015 Episodic Past or Other Problems Problem Classification Problem Date Documented Date Episodic/Chronic Other complications of ; puerperium affecting management of mother (1 source) Other disorders of breast associated with and the puerperium; Translations: [Other disorders of breast associated with and the puerperium] Onset: 04-30-2024 Episodic Other complications of (7 sources) Supervision of high risk , unspecified, unspecified trimester; Translations: [Supervision of unspecified high-risk ] Onset: 04-04-2024 04-19-2023 Episodic Other complications of (2 sources) Supervision of with other poor reproductive or obstetric history, unspecified trimester; Translations: [Supervision of high-risk with history of ] Onset: 04-04-2024 08-25-2023 Episodic Residual codes; unclassified (14 sources) Personal history of other complications of , childbirth and the puerperium; Translations: [Personal history of other genital system and obstetric disorders] Onset: 04-04-2024 Episodic Residual codes; unclassified (1 source) 39 weeks gestation of ; Translations: [39 weeks gestation of ] Onset: 04-04-2024 Episodic Residual codes; unclassified (1 source) 38 weeks gestation of ; Translations: [38 weeks gestation of ] Onset: 03-28-2024 Episodic Residual codes; unclassified (1 source) 36 weeks gestation of ; Translations: [36 weeks gestation of ] Onset: 03-13-2024 Episodic Residual codes; unclassified (1 source) 32 weeks gestation of ; Translations: [32 weeks gestation of ] Onset: 03-06-2024 Episodic Residual codes; unclassified (1 source) 30 weeks gestation of ; Translations: [30 weeks gestation of ] Onset: 02-21-2024 Episodic Residual codes; unclassified (1 source) 28 weeks gestation of ; Translations: [28 weeks gestation of ] Onset: 02-21-2024 Episodic Residual codes; unclassified (1 source) 23 weeks gestation of ; Translations: [23 weeks gestation of ] Onset: 12-18-2023 Episodic Residual codes; unclassified (1 source) 20 weeks gestation of ; Translations: [20 weeks gestation of ] Onset: 11-23-2023 Episodic Residual codes; unclassified (1 source) 15 weeks gestation of ; Translations: [15 weeks gestation of ] Onset: 10-25-2023 Episodic Unclassified (8 sources) Physical examination - The patient is here for a other ( wellness for [facility] ) physical. Note for Physical examination: pt is 18 weeks with 3rd child.// works about 1 day a week. 11-09-2023 Unclassified (5 sources) Physical examination - The patient is here for a annual physical. Note for Physical examination: See Form 01-23-2023 Unclassified (5 sources) [ADDITIONAL REASON] Immunization - Immunizations discussed with patient/ parent: up to date. 01-23-2023 Unclassified (8 sources) Physical examination - The patient is here for a annual physical. Note for Physical examination: See Form. Works at [employer]. Sees [facility] paps 01-10-2022 Unclassified (8 sources) Physical examination - The patient is here for a annual ([facility] physical. 11-27-2020 Unclassified (8 sources) Immunization - Immunizations discussed with patient/ parent: yes. Adacel was given. An immunization information sheet was provided. 09-27-2019 Unclassified (8 sources) Physical examination - The patient is here for a annual ([facility]) physical. Note for Physical examination: Pt. is 25 weeks gestation and sees [facility] [employer] [facility] for care. She denies other concerns. 09-13-2019 Unclassified (8 sources) Physical examination - The patient is here for a annual physical. 09-25-2018 Unclassified (8 sources) Cold Symptoms - Symptoms include nasal congestion, scratchy throat and dry cough. Onset was gradual 1 week(s) ago. Note for Cold symptoms: Pt states this is 2nd episode of illness in past few weeks. 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 Wants to make sure does not have an infection. Low grade temp few days ago, none currently. No h/o chills. Here for exam. 05-28-2018 Unclassified (8 sources) Physical examination - The patient is here for a annual physical. Note for Physical examination: For [facility]. 09-04-2017 Unclassified (8 sources) Physical examination - The patient is here for a annual physical. Note for Physical examination: For [facility] 11-14-2016 Unclassified (8 sources) !Patient notification of lab results 1 - [place]. The test(s) that you had done were/was an echocardiogram. You should call our office to schedule a referral (neurologist of choice). 01-04-2016 Unclassified (8 sources) !Patient notification of lab results 1 - [place]. The test(s) that you had done were/was a CBC (checks for anemia and infection), a CMP (kidneys, liver, nutrition, sugar) and a TSH (thyroid). The results of your testing were normal . Note for !Patient notification of lab results 1: Finish work up 01-01-2016 Unclassified (8 sources) Syncope - The syncope has been occurring in an intermittent pattern for 3 months. The course has been recurrent. The symptoms have been associated with nausea, while the symptoms have not been associated with dizziness, headache or vertigo. Note for Syncope: Did not have any precipitating events. Happened x 2 this summer.1st episode 10/07 nausea, general abd pain 45 prior to eyes dimming and then hearing decreasing , no collapse, lasted few seconds. Vomited and felt tired and nauseous for 1/2 hour and then asleep and then irmexj5of episode 6 days later: Post breakfast Banana/PB 1 hour and nausea and abd pain and layed down and felt a little light headed and vomited and napped and then [id number] episode 2-3 weeks ago: Traveled to [place] and to dinner then to dessert and after dessert, abd pain and decreased hearing and slumped over, out for a few seconds 12-31-2015 Unclassified (8 sources) Physical examination - The patient is here for a work physical. Note for Physical examination: Sees Dr. 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 10-16-2014 Unclassified (8 sources) Elbow Pain - The onset of the elbow pain has been gradual following an incident not at work (pt started [employer] this week) and has been occurring in a persistent pattern for 5 days. The course has been worsening. The symptoms have been associated with stiffness and swelling in the elbow. Note for Elbow Pain: right elbow worse than left. 11-01-2013 Unclassified (8 sources) Acne - Note for Acne: Patient has been seeing a braille typist at [facility]. Would like to discuss going on control pills for acne.. 04-12-2012 Unclassified (8 sources) Physical examination - The patient is here for a other ( college ) physical. Note for Physical examination: going to [facility]. 10-21-2011 Unclassified (8 sources) recheck - other illness (tachycardia. review tests.). 08-03-2010 Unclassified (8 sources) Tachycardia - Symptoms include rapid heartbeat. Onset followed exertion. Note for Tachycardia: OCCURS INFREQUENTLY 06-21-2010 Unclassified (3 sources) Immunization - Immunizations discussed with patient/ parent: up to date. 01-23-2023 Unclassified (3 sources) [ADDITIONAL REASON] Physical examination - The patient is here for a annual physical. Note for Physical examination: See Form 01-23-2023 Unclassified (3 sources) Physical examination - The patient is here for a other ( [facility] ) physical. The patient reports that immunizations are up to date (last tetanus 2019.) and denies tobacco use. 01-13-2025 Results Test Name Value Interpretation Reference Range Facility PAP IG HPV APTIMA 16/18,45on 05-30-2024 ADEQ Comment Normal . [facility] Comment on above: Order Comment: Speci men Comment: [id number] Comment: Source.............CervixSpecimen Comment: No. of containers..01 ThinPrep Vial Result Comment: Sati sfactory for evaluation. Endocervical and/or squamous metaplastic cells (endocervical component) are present. Areas of partially obscuring inflammatory exudate are present. Performed By: #### L 7400.0280 ####[facility] [address] [place], [place], [id number] COMM . Normal . [facility] Comment on above: Order Comment: Speci men Comment: [id number] Comment: Source.............CervixSpecimen Comment: No. of containers..01 ThinPrep Vial Performed By: #### L 7400.0280 ####[facility] [address] [place], [place], [id number] COMMENT TNP Normal . [facility] Comment on above: Order Comment: Speci men Comment: [id number] Comment: Source.............CervixSpecimen Comment: No. of containers..01 ThinPrep Vial Result Comment: The Thin Prep(R) Solid Waste Manager was unable to read this specimen. Therefore a manual review was performed. Performed By: #### L 7400.0280 ####[facility] [address] [place], [place], [id number] DIAG Comment Normal . [facility] Comment on above: Order Comment: Speci men Comment: [id number] Comment: Source.............CervixSpecimen Comment: No. of containers..01 ThinPrep Vial Result Comment: NEGA TIVE FOR INTRAEPITHELIAL LESION OR MALIGNANCY. Performed By: #### L 7400.0280 ####[facility] [id number] [place], [place], [address] HPV APTIMA, HR Negative Normal Negative [facility] Comment on above: Order Comment: Speci men Comment: [id number] Comment: Source.............CervixSpecimen Comment: No. of containers..01 ThinPrep Vial Result Comment: This nucleic acid amplification test detects fourteen high- risk HPV types (16,18,31,33,35,39,45,51,52,56,58,59,66,68) without differentiation. Performed By: #### L 7400.0280 ####[facility] [address] [place], [place], [id number] HPV Madelyn Rfx Comment Normal . [facility] Comment on above: Order Comment: Speci men Comment: [id number] Comment: Source.............CervixSpecimen Comment: No. of containers..01 ThinPrep Vial Result Comment: Crit kailee not met, HPV Genotype not performed. Performed at: - [facility] [id number] Wirer Helper: Diane Adhikari MD, Phone: [phone] Performed at: = - [facility] [id number] Wirer Helper: Diane Adhikari MD, Phone: [phone] Performed By: #### L 7400.0280 ####[facility] [address] [place], [place], [address] PAPSMR Comment Normal . [facility] Comment on above: Order Comment: Speci men Comment: [id number] Comment: Source.............CervixSpecimen Comment: No. of containers..01 ThinPrep Vial Result Comment: The Pap smear is a screening test designed to aid in the detection of premalignant and malignant conditions of the uterine cervix. It is not a diagnostic procedure and should not be used as the sole means of detecting cervical cancer. Both false-positive and false-negative reports do occur. Performed By: #### L 7400.0280 ####[facility] [id number] [place], [address] PERFORM Comment Normal . [facility] Comment on above: Order Comment: Speci men Comment: [id number] Comment: Source.............CervixSpecimen Comment: No. of containers..01 ThinPrep Vial Result Comment: Laura Steve Retail Sales Associate Seasonal (ASCP) Performed By: #### L 7400.0280 ####[facility] [address] [place], [place], [id number] Civil Lawyer Office Visit Reporton 05-27-2024 Civil Lawyer Office Visit Report [facility] [address], [address] [place] [address] OFFICE VISIT Date of Service: 05/27/24 MR#: [id number] Acct: [id number] Name: BERNARD GUTIERRES Rep #: [id number] : 1990 Provider: LINCOLN perea Age/Sex: 33/F Location: [facility] [place] Status: Signed Intake Vital Signs 04/14/24 21:43 04/29/24 16:12 05/27/24 09:47 05/27/24 09:52 Height 5 ft 6 in 5 ft 6 in 5 ft 6 in 5 ft 6 in Weight: 152 lb BMI 24.5 BP 118/66 Intake Visit Reasons: visit (obstetrics) 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 Is patient in pain?: No Allergies No Known Allergies Allergy (Verified 05/27/24 09:47) Medications ???Medication ???Instructions ???Recorded ???Confirmed ???Type multivit-min no.71-iron fum 28 1 cap PO DAILY supplement 04/14/23 05/27/24 History mg-folate no.1 1 mg-dha 300 mg capsule (PNV-Beaumont) : Yes [facility] Medical History Vaginal delivery Seasonal allergies Bleeding in early Gestational HTN History of gestational hypertension Surgical History Advance teeth extracted History of tonsillectomy and adenoidectomy Family History Father Diabetes Grandmother Breast cancer, Onset Age: 70 Maternal Grandfather Cancer, Onset Age: 85 parotid gland cancer Heart disease Mother Breast cancer, Onset Age: 60 Aunt Diabetes Paternal Uncle Diabetes paternal Social History adopted: No household members: spouse and children number of children: 2 current occupational status: employed current occupation: [employer] current occupational exposures/hazards: No pets and animals: Yes pets and animals: dog(s) history of recent travel: Yes ([place]) out of state: Yes out of country: No sexually active: Yes Smoking Status: Never smoker second hand exposure: No alcohol intake: current alcohol intake frequency: holidays/special occasions only details: NOT WHILE substance use type: does not use well-balanced diet: daily or most days caffeine: No eating out: 1-3 times/week during the past year weight has: remained stable what type of physical activity do you participate in: none ana/buddhist: Zoroastrian seatbelt use: always do you feel safe at home: Yes 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 Date Name GA/Weeks Outcome Route Bth Weight Gen Labor Lgth Anesthesia Del Locatn Provider FOB Unknown SAB 202212/06/19 Elver 37 live - full term 7lbs 2oz Male [address] [facility] [facility] ESTEFANY Byrd 08/15/21 Lacey 40 live - full term 7lbs 5oz Female epidural [facility] Gurinder Merrill 04/15/24 Sujata 40 live - full term 7lbs 4oz Female epidural [facility] Susan Byrd Delivery Date: 12/06/19 Last Updated by: Perla Blue GHTN- IoL at 37 weeks; heavy bleeding w/o hemorrhage- methergine given; 2nd degree laceration Delivery Date: 08/15/21 Last Updated by: Ibis Perry see problem list for complications Delivery Date: 04/15/24 Last Updated by: Haylie Orellana RN See problem list for complications, and NORRIS Sujata girl 40 Depression Screen PHQ-2/9 PHQ-2 Over the last 2 weeks, how often have you been bothered by any of the following problems? 1. Little interest or pleasure in doing things: not at all 2. Feeling down, depressed, or hopeless: not at all Total score: 0 Post HPI Routine Follow-Up: Details: BERNARD GUTIERRES is a 33 year old who presents for her post visit. Feeding: Breast Menses resumed: No Polo since delivery: No Emotional Support: Yes Last Pap:: 2020 Control Method: condoms. Considering IUD ROS Card Denies chest pain and Denies dyspnea Resp Denies dyspnea GI Denies bloating and Denies change in bowel habits Denies difficulty voiding Skin/Breast Denies breast mass, Denies breast pain and Denies breast skin changes Exam Const General: cooperative, no acute distress and well developed Nutritional Appearance: average body habitus Orientation: oriented x3 Chest Chest palpation inspection: abnormal inspection of the chest Breast inspection: normal inspection of the breasts Breast palpation: normal palpation of the breasts, normal palpation of the axillae and no axillary lymphadenopathy GI Palpation: soft, no masses an (more content not included)... Normal [facility] MR/BMS.BBCon 04-29-2024 MR/BMS.BBC [facility] [address] [place] [address] OFFICE VISIT Date of Service: 04/29/24 MR#: [id number] Acct: [id number] Name: BERNARD GUTIERRES Rep #: [id number] : 1990 Provider: Opal Rose NP Age/Sex: 33/F Location: [facility] [place] Status: Signed Intake Vital Signs 04/14/24 21:43 04/29/24 16:12 Height 5 ft 6 in 5 ft 6 in Intake Visit Reasons: assessment Chief Complaint: assessment, nipple pain Allergies No Known Allergies Allergy (Verified 04/14/24 21:39) : Yes [facility] Medical History (Updated 04/19/24 @ 00:01 by Ila Cortez) Vaginal delivery Seasonal allergies Bleeding in early Gestational HTN History of gestational hypertension Surgical History Advance teeth extracted History of tonsillectomy and adenoidectomy Family History Father Diabetes Grandmother Breast cancer, Onset Age: 70 Maternal Grandfather Cancer, Onset Age: 85 parotid gland cancer Heart disease Mother Breast cancer, Onset Age: 60 Aunt Diabetes Paternal Uncle Diabetes paternal Social History adopted: No household members: spouse and children number of children: 2 current occupational status: employed current occupation: [employer] current occupational exposures/hazards: No pets and animals: Yes pets and animals: dog(s) history of recent travel: Yes ([place]) out of state: Yes out of country: No sexually active: Yes Smoking Status: Never smoker second hand exposure: No alcohol intake: current alcohol intake frequency: holidays/special occasions only details: NOT WHILE substance use type: does not use well-balanced diet: daily or most days caffeine: No eating out: 1-3 times/week during the past year weight has: remained stable what type of physical activity do you participate in: none ana/buddhist: Zoroastrian seatbelt use: always do you feel safe at home: Yes 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 Date Name GA/Weeks Outcome Route Bth Weight Infant Gen Labor Lgth Anesthesia Del Locatn Provider FOB Unknown 202212/06/19 Elver 37 live - full term 7lbs 2oz Male [address] [facility] ESTEFANY Byrd 08/15/21 Lacey 40 live - full term 7lbs 5oz Female epidural [facility] Gurinder Merrill 04/15/24 Sujata 40 live - full term Female epidural [facility] Carson Delivery Date: 12/06/19 Last Updated by: Perla Blue GHTN- IoL at 37 weeks; heavy bleeding w/o hemorrhage- methergine given; 2nd degree laceration Delivery Date: 08/15/21 Last Updated by: Ibis Perry see problem list for complications Delivery Date: 04/15/24 Last Updated by: Haylie Orellana, RN See problem list for complications, and Sujata girl 40 HPI HPI HPI: BERNARD GUTIERRES, is a 33 F who presents to the office today for assessment, nipple pain and supply concerns. History provided by the patient. ROS ROS Const Constitutional: Denies fever(s) or lethargy : Denies nipple discharge Skin Skin/Breast: Denies breast pain, breast skin changes or nipple discharge Details: q2-3 hours, 6-8 minutes per side, patient states baby as been nursing well but she is not feeling as full and has concerns about supply, right breast making more milk (feeling seay) than left breast, also having nipple pain bilaterally, states that it is typical for her to have nipple pain in the first couple of weeks and then it improves (happened with two other children as well), it is starting to improve and she is using silverettes Exam Maternal Assessment Breast Assessment Bilateral Breasts: Full Nipple Assessment Bilateral Nipples: Everted Areolar Tissue Areolar Tissue: Pliable Assessment Baby Feeding History Is your baby latching onto the breast: Yes Number of Breast Feedings in 24 hours: 8-12 Minutes per breast: First Breast: 6-8 Minutes per breast: Second Breast: 6-8 Supplements Supplement Type:: None Breast Pumping Frequency: feeding on demand, not consistently pumping Goals Breast Feeding Goals: Exclusive Exam Const General: comfortable and no acute distress Orientation: alert and oriented x3 Chest Breast inspection: normal inspection of the breasts Breast palpation: normal palpation of the breasts Other: (more content not included)... Normal [facility] Discharge Instructionon 03-25 Discharge Instruction [facility] Medical Records Department [address] [place] [address] Instructions for Home/Discharge Instructions 04/15/24 0109 MR#: [id number] Acct: [id number] Name: BERNARD GUTIERRES Rep #: [id number] : 1990 33 From: Trisha Childs MD PCP: Status:ADM IN Discharge Instructions Diet Discharge Diet: No restrictions DC O2, CPAP, BIPAP needs Home O2 Discharge instructions: No Dressing / Incision Discharge Activity: Return to Normal Activity, May Not Drive (while taking narcotic pain medications.) and May Shower May resume sexual activity in: 4-6 weeks Dressing / Incision Call your doctor if your incision/area has: Continuous Slow Oozing, Sudden Increased Bleeding, Increased Pain/ Swelling, Increased Redness and Foul Smelling Discharge Follow Up Care Please Follow Up With: Trisha Childs MD When: Call [phone] to make an appointment with your doctor in 6 weeks. If you had elevated blood pressure or 4th degree laceration, you will need to be seen in 2 weeks. Test Results: Test results from this visit will be discussed in further detail at your follow-up appointment, if applicable. Discharge Plan Admission Admit Date/Time: 04/14/24 21:50 Attending Provider: Trisha Childs Discharge Orders/Prescription s Prescriptions: No Action PNV-Beaumont 28-1-300 mg capsule 1 cap PO DAILY aspirin 81 mg tablet,chewable 81 mg PO DAILY 04/15/24 0110 Trisha Childs MD CC: Signed Normal [facility] H AND P Exam - OB/GYNon 03-25 H&P Exam - JOURNEYMAN PLUMBER [facility] Medical Records Department [address] [place] [id number] H P Exam - JOURNEYMAN PLUMBER 04/15/24 0021 MR#: [id number] Acct: [id number] Name: BERNARD GUTIERRES Rep #: [id number] : 1990 33 From: Trisha Childs MD PCP: Status:ADM IN Location: [id number] HPI - General General Date of Admission: 04/14/24 HPI Narrative BERNARD GUTIERRES, is a 33 F who presents Maternal Data Information YUKO Calculator Estimated Delivery Date Method Current WG Current Estimate 04/11/24 LMP (Certain) 40w 4d PFSH PFSH Medical History Seasonal allergies Bleeding in early Vaginal delivery Gestational HTN History of gestational hypertension Home Medications ???Medication ???Instructions ???Recorded ???Last Taken ???Type multivit-min no.71-iron fum 28 1 cap PO DAILY supplement 04/14/23 04/14/24 08:00 History mg-folate no.1 1 mg-dha 300 mg capsule (PNV-Beaumont) aspirin 81 mg chewable tablet 81 mg PO DAILY 04/14/24 04/14/24 08:00 History Allergy/AdvReac Type Severity Reaction Status Date / Time No Known Allergies Allergy Verified 04/14/24 21:39 Family History Father Diabetes Grandmother Breast cancer, Onset Age: 70 Maternal Grandfather Cancer, Onset Age: 85 parotid gland cancer Heart disease Mother Breast cancer, Onset Age: 60 Aunt Diabetes Paternal Uncle Diabetes paternal Surgical History Advance teeth extracted History of tonsillectomy and adenoidectomy Social History adopted: No household members: spouse and children number of children: 2 current occupational status: employed current occupation: [employer] current occupational exposures/hazards: No pets and animals: Yes pets and animals: dog(s) history of recent travel: Yes ([place]) out of state: Yes out of country: No sexually active: Yes Smoking Status: Never smoker second hand exposure: No alcohol intake: current alcohol intake frequency: holidays/special occasions only details: NOT WHILE substance use type: does not use well-balanced diet: daily or most days caffeine: No eating out: 1-3 times/week during the past year weight has: remained stable what type of physical activity do you participate in: none ana/buddhist: Zoroastrian seatbelt use: always do you feel safe at home: Yes 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 Date Name GA/Weeks Outcome Route Bth Weight Infant Gen Labor Lgth Anesthesia Del Locatn Provider FOB Unknown SAB 202212/06/19 Elver 37 live - full term 7lbs 2oz Male [address] [facility] ESTEFANY Byrd 08/15/21 Lacey 40 live - full term 7lbs 5oz Female epidural [facility] Gurinder Merrill Delivery Date: 12/06/19 Last Updated by: Perla Blue GHTN- IoL at 37 weeks; heavy bleeding w/o hemorrhage- methergine given; 2nd degree laceration Delivery Date: 08/15/21 Last Updated by: Ibis Perry see problem list for complications Visit Details Expected Delivery Route/Plan Labor Preferences- CB/BF classes: [] labor support person: [] labor intervention preferences: [] pain management options preferred: [] cut cord/dad catch: [] : [] PP control planned: [] discussed possible routes of delivery and associated risks: [] special requests: [] Plans Covid status: [] Flu vaccine: given Tdap vaccine: given Rhogam: na LARC form signed: movement and labor precautions reviewed. Problem list reviewed and updated with the most current plan of care details and appropriate orders placed. Relevant counseling for the gestational age provided. Continue routine care and follow up unless otherwise noted in visit notes/problem list details OB Flowsheet Initial Weight: Not Recorded Date -???-???-???-???-?? ?-???-???-???-???-? ??-???-???- EGA Weight BP Urine Prot -???-???-???-???-?? ?-???-???-???-???-? ??-???-???- Glucose FHR FuHt Pres Dilation -???-???-???-???-?? ?-???-???-???-???-? ??-???-???- Effaced St Visit Note 08/25/23 -???-???-???-???-?? ?-???-???-???-???-? ??-???-???- 7w 1d 139 lb 6 oz 104/71 -???-???-???-???-?? ?-???-???-???-???-? ??-???-???- 141 -???-???-???-???-?? ?-???-???-???-???-? ??-???-???- kw-CRL cons with dates. Declines NIPT 09/22/23 -???-???-???-???-?? ?-???-???-???-???-? ??-???-???- 11w 1d 143 lb 8 oz 120/71 Negative -???-?? (more content not included)... Normal [facility] MR/OB.VAGDELIon 04-15-2024 MR/OB.VAGDELI [facility] Medical Records Department [address] [place] [address] OB VAGINAL DELIVERY 04/15/24 0108 MR#: [id number] Acct: [id number] Name: BERNARD GUTIERRES Rep #: [id number] : 1990 33 From: Trisha Childs MD PCP: Status:ADM IN [id number] Assessment Plan (1) Active labor at term: (2) Vaginal delivery: COMMENT: Sujata girl 40 Maternal Data Information YUKO Calculator Estimated Delivery Date Method Current WG Current Estimate 04/11/24 LMP (Certain) 40w 4d Vaginal Delivery Maternal Presentation Maternal Presentation: see assessment and plan Vaginal Delivery Information Procedure Performed: Spontaneous Vaginal Delivery Surgeon/Practitione r: Trisha Childs Date of Procedure: 04/15/24 Pre-Procedure Diagnosis: see assessment and plan Post-Procedure Diagnosis: same Type of anesthesia: Epidural Estimated Blood Loss: 200 Findings Description of procedure: Patient began pushing and delivered the head in the BRNADEN presentation. The head was delivered atraumatically and a loose nuchal cord ???1 was identified and easily reduced over the 's head. The anterior and posterior shoulders delivered without complication followed by the rest of the and the was placed on the maternal abdomen. Delayed cord clamping was employed for approximately 60 seconds. Cord was clamped and cut and gentle traction was applied to the cord and the placenta delivered spontaneously immediately following it was noted to be intact with three- vessel cord. The perineum and vagina were inspected and noted to have no laceration. EBL was 200. Patient and infant tolerated delivery well. Presentation: Vertex Placental Delivery Description: Spontaneous Specimen collected: Yes Description of specimen(s) removed: placenta Table Keeper surgery attendant: No Post Vaginal Deli Medications given after delivery: Other (pitocin) Complication Complications: No Multi Select Codes Urinary/Genital Urinary/Genital CPT Codes: 53368 Vaginal Delivery [facility] 04/15/24 0109 Cosigner Signature (if applicable): CC: Dr. Trisha Childs MD Signed Normal [facility] CBC W/Diff, Automatedon 12-05 26-2023 Absolute Lymph 1.12 X10 3/uL Normal 0.83-4.51 [facility] Comment on above: Performed By: #### L 100.0100, BTS #### [facility] [address] [place], [address] Absolute Neut 12.2 X10 3/uL High 2.0-7.7 [facility] Comment on above: Performed By: #### L 100.0100, BTS #### [facility] [address] [place], [address] Basophils/100 WBC (Bld) 0.3 % Normal 0-1 [facility] Comment on above: Performed By: #### L 100.0100, BTS #### [facility] [address] [place], [address] Eosinophils/100 WBC (Bld) 0.3 % Normal 0-5 [facility] Comment on above: Performed By: #### L 100.0100, BTS #### [facility] [address] [place], [address] Erythrocyte distribution width (RBC) [Ratio] 12.4 % Normal 11.6-14.6 [facility] Comment on above: Performed By: #### L 100.0100, BTS #### [facility] [address] [place], [address] Hematocrit (Bld) [Volume fraction] 36.1 % Low 37-47 [facility] Comment on above: Performed By: #### L 100.0100, BTS #### [facility] [address] [place], [address] Hemoglobin (Bld) [Mass/Vol] 12.6 g/dL Normal 12.0-15.0 [facility] Comment on above: Performed By: #### L 100.0100, BTS #### [facility] [address] [place], [address] IG% 0.300 Normal 0.0-0.9 [facility] Comment on above: Result Comment: IG% - Immature Granulocytes (promyelocytes, myelocytes and metamyelocytes) > 1% indicates that a LEFT SHIFT is Present. Performed By: #### L 100.0100, BTS #### [facility] [address] [place], [address] Lymphocytes/100 WBC (Bld) 8.0 % Low 19-41 [facility] Comment on above: Performed By: #### L 100.0100, BTS #### [facility] [address] [place], [address] MCH (RBC) [Entitic mass] 29.8 pg Normal 27.0-32.0 [facility] Comment on above: Performed By: #### L 100.0100, BTS #### [facility] [address] [place], [address] MCHC (RBC) [Mass/Vol] 34.9 g/dL Normal 32-36 [facility] Comment on above: Performed By: #### L 100.0100, BTS #### [facility] [address] [place], [address] MCV (RBC) [Entitic vol] 85.3 fL Normal 81-99 [facility] Comment on above: Performed By: #### L 100.0100, BTS #### [facility] [address] [place], [address] Monocytes/100 WBC (Bld) 3.9 % Normal 0-10 [facility] Comment on above: Performed By: #### L 100.0100, BTS #### [facility] [address] [place], [address] Neutrophils/100 WBC (Bld) 87.2 % High 47-70 [facility] Comment on above: Performed By: #### L 100.0100, BTS #### [facility] [address] [place], [address] Nucleated RBC (Bld) [#/Vol] 0 10*3/uL Normal 0-5 [facility] Comment on above: Performed By: #### L 100.0100, BTS #### [facility] [address] [place], [address] Platelet mean volume (Bld) [Entitic vol] 10.3 fL Normal 6.2-12.0 [facility] Comment on above: Performed By: #### L 100.0100, BTS #### [facility] [address] [place], [address] Platelets (Bld) [#/Vol] 204 10*3/uL Normal 150-450 [facility] Comment on above: Performed By: #### L 100.0100, BTS #### [facility] [address] [place], [address] RBC (Bld) [#/Vol] 4.23 10*6/uL Normal 4.2-5.4 [facility] Comment on above: Performed By: #### L 100.0100, BTS #### [facility] [address] [place], [address] RDW SD 38.3 fl Normal 35.1-43.9 [facility] Comment on above: Performed By: #### L 100.0100, BTS #### [facility] [address] [place], [address] WBC (Bld) [#/Vol] 14.0 10*3/uL High 4.4-11.0 [facility] Comment on above: Performed By: #### L 100.0100, BTS #### [facility] [address] [place], [address] L509.8000on 04-14-2024 Syphilis Abs Non-Reactive Normal [facility] Comment on above: Performed By: #### L 509.8000 #### [facility] [address] [place], [address] Type AND Screenon 04-14-2024 ABO and Rh group Nom (Bld) Blood group A Rh(D) positive Normal [facility] Comment on above: Order Comment: Labor Performed By: #### L 100.0100, BTS #### [facility] [address] [place], [address] Civil Lawyer Office Visit Reporton 04-11-2024 Civil Lawyer Office Visit Report [facility] [address], [address] [place] [address] OFFICE VISIT Date of Service: 04/11/24 MR#: [id number] Acct: [id number] Name: BHAVIKBERNARD ALEN Rep #: [id number] : 1990 Provider: Dr. Malina Slater DO Age/Sex: 33/F Location: [facility] Status: Signed Intake Vital Signs 01/24/24 15:21 04/04/24 10:33 04/11/24 09:54 04/11/24 09:56 Height 5 ft 6 in 5 ft 6 in 5 ft 6 in 5 ft 6 in Weight: 162 lb 8 oz BMI 26.2 BP 131/78 H Intake Visit Reasons: 40 WK OB! HAPPY DUE DATE! 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 Is patient in pain?: No Allergies No Known Allergies Allergy (Verified 04/11/24 09:54) Medications ???Medication ???Instructions ???Recorded ???Confirmed ???Type multivit-min no.71-iron fum 28 cap PO 04/14/23 04/11/24 History mg-folate no.1 1 mg-dha 300 mg capsule (PNV-Beaumont) Last Menstrual Period: 07/06/23 Zika: Zika virus screening: Negative : No PFSH PFSH Medical History Seasonal allergies Bleeding in early Vaginal delivery Gestational HTN History of gestational hypertension Surgical History Advance teeth extracted History of tonsillectomy and adenoidectomy Family History Father Diabetes Grandmother Breast cancer, Onset Age: 70 Maternal Grandfather Cancer, Onset Age: 85 parotid gland cancer Heart disease Mother Breast cancer, Onset Age: 60 Aunt Diabetes Paternal Uncle Diabetes paternal Social History adopted: No household members: spouse and children number of children: 2 current occupational status: employed current occupation: [employer] current occupational exposures/hazards: No pets and animals: Yes pets and animals: dog(s) history of recent travel: Yes ([place]) out of state: Yes out of country: No sexually active: Yes Smoking Status: Never smoker second hand exposure: No alcohol intake: current alcohol intake frequency: holidays/special occasions only details: NOT WHILE substance use type: does not use well-balanced diet: daily or most days caffeine: No eating out: 1-3 times/week during the past year weight has: remained stable what type of physical activity do you participate in: none ana/buddhist: Zoroastrian seatbelt use: always do you feel safe at home: Yes 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 Date Name GA/Weeks Outcome Route Bth Weight Infant Gen Labor Lgth Anesthesia Del Locatn Provider FOB Unknown 202212/06/19 Elver 37 live - full term 7lbs 2oz Male [address] [facility] ESTEFANY Byrd 08/15/21 Lacey 40 live - full term 7lbs 5oz Female epidural [facility] J lianna Merrill Delivery Date: 12/06/19 Last Updated by: Perla Blue GHTN- IoL at 37 weeks; heavy bleeding w/o hemorrhage- methergine given; 2nd degree laceration Delivery Date: 08/15/21 Last Updated by: Ibis Perry see problem list for complications HPI 40 WK OB! HAPPY DUE DATE! Details: BERNARD GUTIERRES is a 33 year old who presents for routine OB visit. OB Visit YUKO Calculator Estimated Delivery Date Method Current WG Current Estimate 04/11/24 LMP (Certain) 40w 0d Expected Delivery Route/Plan Labor Preferences- CB/BF classes: [] labor support person: [] labor intervention preferences: [] pain management options preferred: [] cut cord/dad catch: [] : [] PP control planned: [] discussed possible routes of delivery and associated risks: [] special requests: [] Specific Issue/Plans Covid status: [] Flu vaccine: given Tdap vaccine: given Rhogam: na LARC form signed: movement and labor precautions reviewed. Problem list reviewed and updated with the most current plan of care details and appropriate orders placed. Relevant counseling for the gestational age provided. Continue routine care and follow up unless otherwise noted in visit notes/problem list details Initial Weight: Not Recorded Date -???-???-???-???-?? ?-???-???-???-???-? ??-???-???- EGA Weight BP Urine Prot -???-???-???-???-?? ?-???-???-???-???-? ??-???-???- Glucose FHR FuHt Pres Dilation -???-???-???-???-?? ?-???-???-???-???-? ??-???-???- Effaced St Visit Note 08/25/23 -???-???-???-???-?? ?-???-???-???-???-? ??-???-???- 7w 1d 139 lb 6 oz 104/71 -???-???-???- (more content not included)... Normal [facility] [place] Civil Lawyer Office Visit Reporton 04-04-2024 Civil Lawyer Office Visit Report [facility] [address], [address] [place] [address] OFFICE VISIT Date of Service: 04/04/24 MR#: [id number] Acct: [id number] Name: BERNARD GUTIERRES Rep #: [id number] : 1990 Provider: FILIBERTO Zhao ams Age/Sex: 33/F Location: [facility] [place] Status: Signed Intake Vital Signs 01/24/24 15:21 03/28/24 10:30 04/04/24 10:29 04/04/24 10:33 Height 5 ft 6 in 5 ft 6 in 6 ft 5 in 5 ft 6 in Weight: 165 lb BMI 19.5 BP 119/81 H Intake Visit Reasons: 39 WK OB 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 Is patient in pain?: No Allergies No Known Allergies Allergy (Verified 04/04/24 10:30) Medications ???Medication ???Instructions ???Recorded ???Confirmed ???Type multivit-min no.71-iron fum 28 cap PO 04/14/23 04/04/24 History mg-folate no.1 1 mg-dha 300 mg capsule (PNV-[facility]) Last Menstrual Period: 07/06/23 Zika: Zika virus screening: Negative : No Have you fallen in the past year?: No PFSH PFSH Medical History Seasonal allergies Bleeding in early Vaginal delivery Gestational HTN History of gestational hypertension Surgical History Advance teeth extracted History of tonsillectomy and adenoidectomy Family History Father Diabetes Grandmother Breast cancer, Onset Age: 70 Maternal Grandfather Cancer, Onset Age: 85 parotid gland cancer Heart disease Mother Breast cancer, Onset Age: 60 Aunt Diabetes Paternal Uncle Diabetes paternal Social History adopted: No household members: spouse and children number of children: 2 current occupational status: employed current occupation: [employer] current occupational exposures/hazards: No pets and animals: Yes pets and animals: dog(s) history of recent travel: Yes ([place]) out of state: Yes out of country: No sexually active: Yes Smoking Status: Never smoker second hand exposure: No alcohol intake: current alcohol intake frequency: holidays/special occasions only details: NOT WHILE substance use type: does not use well-balanced diet: daily or most days caffeine: No eating out: 1-3 times/week during the past year weight has: remained stable what type of physical activity do you participate in: none ana/buddhist: Zoroastrian seatbelt use: always do you feel safe at home: Yes 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 Date Name GA/Weeks Outcome Route Bth Weight Gen Labor Lgth Anesthesia Del Locatn Provider FOB Unknown 202212/06/19 Elver 37 live - full term 7lbs 2oz Male [address] [facility] ESTEFANY Byrd 08/15/21 Lacey 40 live - full term 7lbs 5oz Female epidural [facility] Gurinder Merrill Delivery Date: 12/06/19 Last Updated by: Perla LOPEZTCorrine- IoL at 37 weeks; heavy bleeding w/o hemorrhage- methergine given; 2nd degree laceration Delivery Date: 08/15/21 Last Updated by: Ibis Perry see problem list for complications HPI 39 WK OB Details: BERNARD GUTIERRES is a 33 year old who presents for routine OB visit. OB Visit YUKO Calculator Estimated Delivery Date Method Current WG Current Estimate 04/11/24 LMP (Certain) 39w 0d Expected Delivery Route/Plan Labor Preferences- CB/BF classes: [] labor support person: [] labor intervention preferences: [] pain management options preferred: [] cut cord/dad catch: [] : [] PP control planned: [] discussed possible routes of delivery and associated risks: [] special requests: [] Specific Issue/Plans Covid status: [] Flu vaccine: given Tdap vaccine: given Rhogam: na LARC form signed: movement and labor precautions reviewed. Problem list reviewed and updated with the most current plan of care details and appropriate orders placed. Relevant counseling for the gestational age provided. Continue routine care and follow up unless otherwise noted in visit notes/problem list details Initial Weight: Not Recorded Date -???-???-???-???-?? ?-???-???-???-???-? ??-???-???- EGA Weight BP Urine Prot -???-???-???-???-?? ?-???-???-???-???-? ??-???-???- Glucose FHR FuHt Pres Dilation -???-???-???-???-?? ?-???-???-???-???-? ??-???-???- Effaced St Visit Note 08/25/23 -???-???-???-???-?? ?-???-???-???-???-? ??-???-???- 7w 1d 139 lb 6 oz 104/71 -???-???-???-???-?? ?-???-???-???-???-? (more content not included)... Normal [facility] [place] Civil Lawyer Office Visit Reporton 03-28-2024 Civil Lawyer Office Visit Report [facility] [address] [place] [address], [address] [place] [address] OFFICE VISIT Date of Service: 03/28/24 MR#: [id number] Acct: [id number] Name: BERNARD GUTIERRES Rep #: [id number] : 1990 Provider: FILIBERTO Zhao ams Age/Sex: 33/F Location: [facility] [place] Status: Signed Intake Vital Signs 01/24/24 15:21 03/19/24 11:31 03/28/24 10:29 03/28/24 10:30 Height 5 ft 6 in 5 ft 6 in 5 ft 6 in 5 ft 6 in Weight: 166 lb BMI 26.8 BP 126/81 H Intake Visit Reasons: 38 WK OB 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 Is patient in pain?: No Allergies No Known Allergies Allergy (Verified 03/28/24 10:29) Medications ???Medication ???Instructions ???Recorded ???Confirmed ???Type multivit-min no.71-iron fum 28 cap PO 04/14/23 03/28/24 History mg-folate no.1 1 mg-dha 300 mg capsule (PNV-[facility]) Last Menstrual Period: 07/06/23 Zika: Zika virus screening: Negative : No Have you fallen in the past year?: No PFSH PFSH Medical History Seasonal allergies Bleeding in early Vaginal delivery Gestational HTN History of gestational hypertension Surgical History Advance teeth extracted History of tonsillectomy and adenoidectomy Family History Father Diabetes Grandmother Breast cancer, Onset Age: 70 Maternal Grandfather Cancer, Onset Age: 85 parotid gland cancer Heart disease Mother Breast cancer, Onset Age: 60 Aunt Diabetes Paternal Uncle Diabetes paternal Social History adopted: No household members: spouse and children number of children: 2 current occupational status: employed current occupation: [employer] current occupational exposures/hazards: No pets and animals: Yes pets and animals: dog(s) history of recent travel: Yes ([place]) out of state: Yes out of country: No sexually active: Yes Smoking Status: Never smoker second hand exposure: No alcohol intake: current alcohol intake frequency: holidays/special occasions only details: NOT WHILE substance use type: does not use well-balanced diet: daily or most days caffeine: No eating out: 1-3 times/week during the past year weight has: remained stable what type of physical activity do you participate in: none ana/buddhist: Zoroastrian seatbelt use: always do you feel safe at home: Yes 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 Date Name GA/Weeks Outcome Route Bth Weight Gen Labor Lgth Anesthesia Del Locatn Provider FOB Unknown 202212/06/19 Elver 37 live - full term 7lbs 2oz Male [address] [facility] ESTEFANY Byrd 08/15/21 Lacey 40 live - full term 7lbs 5oz Female epidural [facility] Gurinder Mccullough Velrita Delivery Date: 12/06/19 Last Updated by: Perla Blue GHTCorrine- IoL at 37 weeks; heavy bleeding w/o hemorrhage- methergine given; 2nd degree laceration Delivery Date: 08/15/21 Last Updated by: Ibis Perry see problem list for complications HPI 38 WK OB Details: BERNARD GUTIERRES is a 33 year old who presents for routine OB visit. OB Visit YUKO Calculator Estimated Delivery Date Method Current WG Current Estimate 04/11/24 LMP (Certain) 38w 0d Expected Delivery Route/Plan Labor Preferences- CB/BF classes: [] labor support person: [] labor intervention preferences: [] pain management options preferred: [] cut cord/dad catch: [] : [] PP control planned: [] discussed possible routes of delivery and associated risks: [] special requests: [] Specific Issue/Plans Covid status: [] Flu vaccine: given Tdap vaccine: given Rhogam: na LARC form signed: movement and labor precautions reviewed. Problem list reviewed and updated with the most current plan of care details and appropriate orders placed. Relevant counseling for the gestational age provided. Continue routine care and follow up unless otherwise noted in visit notes/problem list details Initial Weight: Not Recorded Date -???-???-???-???-?? ?-???-???-???-???-? ??-???-???- EGA Weight BP Urine Prot -???-???-???-???-?? ?-???-???-???-???-? ??-???-???- Glucose FHR FuHt Pres Dilation -???-???-???-???-?? ?-???-???-???-???-? ??-???-???- Effaced St Visit Note 08/25/23 -???-???-???-???-?? ?-???-???-???-???-? ??-???-???- 7w 1d 139 lb 6 oz 104/71 -???-???-???-???-?? ?-???-???-???-???-? (more content not included)... Normal [facility] [place] Civil Lawyer Office Visit Reporton 03-19-2024 Civil Lawyer Office Visit Report [facility] [address], [address] [place] [address] OFFICE VISIT Date of Service: 03/19/24 MR#: [id number] Acct: [id number] Name: BERNARD GUTIERRES Rep #: [id number] : 1990 Provider: FILIBERTO Zhao ams Age/Sex: 33/F Location: [facility] [place] Status: Signed Intake Vital Signs 01/24/24 15:21 03/13/24 13:09 03/19/24 11:23 03/19/24 11:31 Height 5 ft 6 in 5 ft 6 in 5 ft 6 in 5 ft 6 in Weight: 166 lb BMI 26.8 BP 112/73 Intake Visit Reasons: 37 WK OB 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 Is patient in pain?: No Allergies No Known Allergies Allergy (Verified 03/19/24 11:22) Medications ???Medication ???Instructions ???Recorded ???Confirmed ???Type multivit-min no.71-iron fum 28 cap PO 04/14/23 03/19/24 History mg-folate no.1 1 mg-dha 300 mg capsule (PNV-[facility]) Last Menstrual Period: 07/06/23 Current gender identity: female Zika: Zika virus screening: Negative : No PFSH PFSH Medical History Seasonal allergies Bleeding in early Vaginal delivery Gestational HTN History of gestational hypertension Surgical History Advance teeth extracted History of tonsillectomy and adenoidectomy Family History Father Diabetes Grandmother Breast cancer, Onset Age: 70 Maternal Grandfather Cancer, Onset Age: 85 parotid gland cancer Heart disease Mother Breast cancer, Onset Age: 60 Aunt Diabetes Paternal Uncle Diabetes paternal Social History adopted: No household members: spouse and children number of children: 2 current occupational status: employed current occupation: [employer] current occupational exposures/hazards: No pets and animals: Yes pets and animals: dog(s) history of recent travel: Yes ([place]) out of state: Yes out of country: No sexually active: Yes current gender identity: female Smoking Status: Never smoker second hand exposure: No alcohol intake: current alcohol intake frequency: holidays/special occasions only details: NOT WHILE substance use type: does not use well-balanced diet: daily or most days caffeine: No eating out: 1-3 times/week during the past year weight has: remained stable what type of physical activity do you participate in: none ana/buddhist: Zoroastrian seatbelt use: always do you feel safe at home: Yes 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 Date Name GA/Weeks Outcome Route Bth Weight Gen Labor Lgth Anesthesia Del Locatn Provider FOB Unknown SAB 202212/06/19 Elver 37 live - full term 7lbs 2oz Male [address] [facility] ESTEFANY Hansoner 08/15/21 Lacey 40 live - full term 7lbs 5oz Female epidural [facility] Gurinder Merrill Delivery Date: 12/06/19 Last Updated by: Perla Blue GHTN- IoL at 37 weeks; heavy bleeding w/o hemorrhage- methergine given; 2nd degree laceration Delivery Date: 08/15/21 Last Updated by: Ibis Perry see problem list for complications HPI 37 WK OB Details: BERNARD GUTIERRES is a 33 year old who presents for routine OB visit. OB Visit YUKO Calculator Estimated Delivery Date Method Current WG Current Estimate 04/11/24 LMP (Certain) 36w 5d Expected Delivery Route/Plan Labor Preferences- CB/BF classes: [] labor support person: [] labor intervention preferences: [] pain management options preferred: [] cut cord/dad catch: [] : [] PP control planned: [] discussed possible routes of delivery and associated risks: [] special requests: [] Specific Issue/Plans Covid status: [] Flu vaccine: given Tdap vaccine: given Rhogam: na LARC form signed: movement and labor precautions reviewed. Problem list reviewed and updated with the most current plan of care details and appropriate orders placed. Relevant counseling for the gestational age provided. Continue routine care and follow up unless otherwise noted in visit notes/problem list details Initial Weight: Not Recorded Date -???-???-???-???-?? ?-???-???-???-???-? ??-???-???- EGA Weight BP Urine Prot -???-???-???-???-?? ?-???-???-???-???-? ??-???-???- Glucose FHR FuHt Pres Dilation -???-???-???-???-?? ?-???-???-???-???-? ??-???-???- Effaced St Visit Note 08/25/23 -???-???-???-???-?? ?-???-???-???-???-? ??-???-???- 7w 1d 139 lb 6 oz 104/71 -???-???-???-??? (more content not included)... Normal [facility] [place] Rule out Beta Strep (Grp. B) on 03-15-2024 ENRIQUE Group B Beta Streptococcus is not isolated. Normal [facility] Comment on above: Performed By: #### M [id number] ####[facility] [id number] [place], [place], [id number] Civil Lawyer Office Visit Reporton 03-13-2024 Civil Lawyer Office Visit Report [facility] [address], [address] [place] [address] OFFICE VISIT Date of Service: 03/13/24 MR#: [id number] Acct: [id number] Name: BERNARD GUTIERRES Rep #: [id number] : 1990 Provider: FILIBERTO Zhao ams Age/Sex: 33/F Location: [facility] Status: Signed Intake Vital Signs 01/24/24 15:21 03/07/24 14:43 03/13/24 13:03 03/13/24 13:09 Height 5 ft 6 in 5 ft 6 in 5 ft 6 in 5 ft 6 in Weight: 164 lb 8 oz BMI 26.5 BP 111/74 Intake Visit Reasons: 36 WK OB 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 Is patient in pain?: No Allergies No Known Allergies Allergy (Verified 03/13/24 13:02) Medications ???Medication ???Instructions ???Recorded ???Confirmed ???Type multivit-min no.71-iron fum 28 cap PO 04/14/23 03/13/24 History mg-folate no.1 1 mg-dha 300 mg capsule (PNV-[facility]) Last Menstrual Period: 07/06/23 Do you think of yourself as: straight/heterosexu al Current gender identity: female Zika: Zika virus screening: Negative : No [facility] Medical History Seasonal allergies Bleeding in early Vaginal delivery Gestational HTN History of gestational hypertension Surgical History Advance teeth extracted History of tonsillectomy and adenoidectomy Family History Father Diabetes Grandmother Breast cancer, Onset Age: 70 Maternal Grandfather Cancer, Onset Age: 85 parotid gland cancer Heart disease Mother Breast cancer, Onset Age: 60 Aunt Diabetes Paternal Uncle Diabetes paternal Social History adopted: No household members: spouse and children number of children: 2 current occupational status: employed current occupation: [employer] current occupational exposures/hazards: No pets and animals: Yes pets and animals: dog(s) history of recent travel: Yes ([place]) out of state: Yes out of country: No sexually active: Yes do you think of yourself as: straight/heterosexu al current gender identity: female Smoking Status: Never smoker second hand exposure: No alcohol intake: current alcohol intake frequency: holidays/special occasions only details: NOT WHILE substance use type: does not use well-balanced diet: daily or most days caffeine: No eating out: 1-3 times/week during the past year weight has: remained stable what type of physical activity do you participate in: none ana/buddhist: Zoroastrian seatbelt use: always do you feel safe at home: Yes 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 Date Name GA/Weeks Outcome Route Bth Weight Gen Labor Lgth Anesthesia Del Locatn Provider FOB Unknown 202212/06/19 Elver 37 live - full term 7lbs 2oz Male [address] [facility] ESTEFANY Byrd 08/15/21 Lacey 40 live - full term 7lbs 5oz Female epidural [facility] Gurinder Merrill Delivery Date: 12/06/19 Last Updated by: Perla Blue GHTN- IoL at 37 weeks; heavy bleeding w/o hemorrhage- methergine given; 2nd degree laceration Delivery Date: 08/15/21 Last Updated by: Ibis Perry see problem list for complications HPI 36 WK OB Details: BERNARD GUTIERRES is a 33 year old who presents for routine OB visit. OB Visit YUKO Calculator Estimated Delivery Date Method Current WG Current Estimate 04/11/24 LMP (Certain) 35w 6d Expected Delivery Route/Plan Labor Preferences- CB/BF classes: [] labor support person: [] labor intervention preferences: [] pain management options preferred: [] cut cord/dad catch: [] : [] PP control planned: [] discussed possible routes of delivery and associated risks: [] special requests: [] Specific Issue/Plans Covid status: [] Flu vaccine: given Tdap vaccine: given Rhogam: na LARC form signed: movement and labor precautions reviewed. Problem list reviewed and updated with the most current plan of care details and appropriate orders placed. Relevant counseling for the gestational age provided. Continue routine care and follow up unless otherwise noted in visit notes/problem list details Initial Weight: Not Recorded Date -???-???-???-???-?? ?-???-???-???-???-? ??-???-???- EGA Weight BP Urine Prot -???-???-???-???-?? ?-???-???-???-???-? ??-???-???- Glucose FHR FuHt Pres Dilation -???-???-???-???-?? ?-???-???-???-???-? ??-???-???- Effaced St Visit Note (more content not included)... Normal [facility] [place] Civil Lawyer Office Visit Reporton 03-07-2024 Civil Lawyer Office Visit Report [facility] [address], [address] [place] [address] OFFICE VISIT Date of Service: 03/07/24 MR#: [id number] Acct: [id number] Name: BERNARD GUTIERRES Rep #: [id number] : 1990 Provider: Dr. Malina Slater DO Age/Sex: 33/F Location: [facility] [place] Status: Signed Intake Vital Signs 01/24/24 15:21 02/21/24 13:14 03/07/24 14:43 Height 5 ft 6 in 5 ft 6 in 5 ft 6 in Weight: 163 lb 4 oz BMI 26.3 BP 122/85 H Intake Visit Reasons: 35 WK OB 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 Is patient in pain?: No Allergies No Known Allergies Allergy (Verified 03/07/24 14:44) Medications ???Medication ???Instructions ???Recorded ???Confirmed ???Type multivit-min no.71-iron fum 28 cap PO 04/14/23 03/07/24 History mg-folate no.1 1 mg-dha 300 mg capsule (PNV-[facility]) Last Menstrual Period: 07/06/23 Zika: Zika virus screening: Negative : No PFSH PFSH Medical History Seasonal allergies Bleeding in early Vaginal delivery Gestational HTN History of gestational hypertension Surgical History Advance teeth extracted History of tonsillectomy and adenoidectomy Family History Father Diabetes Grandmother Breast cancer, Onset Age: 70 Maternal Grandfather Cancer, Onset Age: 85 parotid gland cancer Heart disease Mother Breast cancer, Onset Age: 60 Aunt Diabetes Paternal Uncle Diabetes paternal Social History adopted: No household members: spouse and children number of children: 2 current occupational status: employed current occupation: [employer] current occupational exposures/hazards: No pets and animals: Yes pets and animals: dog(s) history of recent travel: Yes ([place]) out of state: Yes out of country: No sexually active: Yes Smoking Status: Never smoker second hand exposure: No alcohol intake: current alcohol intake frequency: holidays/special occasions only details: NOT WHILE substance use type: does not use well-balanced diet: daily or most days caffeine: No eating out: 1-3 times/week during the past year weight has: remained stable what type of physical activity do you participate in: none ana/buddhist: Zoroastrian seatbelt use: always do you feel safe at home: Yes 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 Date Name GA/Weeks Outcome Route Bth Weight Infant Gen Labor Lgth Anesthesia Del Locatn Provider FOB Unknown SAB 202212/06/19 Elver 37 live - full term 7lbs 2oz Male [address] [facility] SHRebeca Byrd 08/15/21 Lacey 40 live - full term 7lbs 5oz Female epidural [facility] Gurinder lianna Merrill Delivery Date: 12/06/19 Last Updated by: Perla Blue GHTN- IoL at 37 weeks; heavy bleeding w/o hemorrhage- methergine given; 2nd degree laceration Delivery Date: 08/15/21 Last Updated by: Ibis Perry see problem list for complications HPI 35 WK OB Details: BERNARD GUTIERRES is a 33 year old who presents for routine OB visit. OB Visit YUKO Calculator Estimated Delivery Date Method Current WG Current Estimate 04/11/24 LMP (Certain) 35w 0d Expected Delivery Route/Plan Labor Preferences- CB/BF classes: [] labor support person: [] labor intervention preferences: [] pain management options preferred: [] cut cord/dad catch: [] : [] PP control planned: [] discussed possible routes of delivery and associated risks: [] special requests: [] Specific Issue/Plans Covid status: [] Flu vaccine: given Tdap vaccine: given Rhogam: na LARC form signed: movement and labor precautions reviewed. Problem list reviewed and updated with the most current plan of care details and appropriate orders placed. Relevant counseling for the gestational age provided. Continue routine care and follow up unless otherwise noted in visit notes/problem list details Initial Weight: Not Recorded Date -???-???-???-???-?? ?-???-???-???-???-? ??-???-???- EGA Weight BP Urine Prot -???-???-???-???-?? ?-???-???-???-???-? ??-???-???- Glucose FHR FuHt Pres Dilation -???-???-???-???-?? ?-???-???-???-???-? ??-???-???- Effaced St Visit Note 08/25/23 -???-???-???-???-?? ?-???-???-???-???-? ??-???-???- 7w 1d 139 lb 6 oz 104/71 -???-???-???-???-?? ?-???-???-???-???-? ??-???-???- 141 -???-???-???-??? (more content not included)... Normal [facility] [place] Civil Lawyer Office Visit Reporton 02-21-2024 Civil Lawyer Office Visit Report [facility] [address], [facility] [address] [place] [address] OFFICE VISIT Date of Service: 02/21/24 MR#: [id number] Acct: [id number] Name: BERNARD GUTIERRES Rep #: [id number] : 1990 Provider: FILIBERTO Zhao ams Age/Sex: 33/F Location: [facility] Status: Signed Intake Vital Signs 12/18/23 13:45 01/24/24 15:21 02/07/24 13:03 02/21/24 12:56 02/21/24 13:14 Height 5 ft 6 in 5 ft 6 in 5 ft 6 in 5 ft 6 in 5 ft 6 in Weight: 161 lb BMI 25.9 BP 104/69 Intake Visit Reasons: 33 WK OB 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 Is patient in pain?: No Allergies No Known Allergies Allergy (Verified 02/21/24 12:55) Medications ???Medication ???Instructions ???Recorded ???Confirmed ???Type multivit-min no.71-iron fum 28 cap PO 04/14/23 02/21/24 History mg-folate no.1 1 mg-dha 300 mg capsule (PNV-[facility]) Last Menstrual Period: 07/06/23 Zika: Zika virus screening: Negative : Yes [facility] Medical History Seasonal allergies Bleeding in early Vaginal delivery Gestational HTN History of gestational hypertension Surgical History Advance teeth extracted History of tonsillectomy and adenoidectomy Family History Father Diabetes Grandmother Breast cancer, Onset Age: 70 Maternal Grandfather Cancer, Onset Age: 85 parotid gland cancer Heart disease Mother Breast cancer, Onset Age: 60 Aunt Diabetes Paternal Uncle Diabetes paternal Social History adopted: No household members: spouse and children number of children: 2 current occupational status: employed current occupation: [employer]- [employer] current occupational exposures/hazards: No pets and animals: Yes pets and animals: dog(s) history of recent travel: Yes ([place]) out of state: Yes out of country: No sexually active: Yes Smoking Status: Never smoker second hand exposure: No alcohol intake: current alcohol intake frequency: holidays/special occasions only details: NOT WHILE substance use type: does not use well-balanced diet: daily or most days caffeine: No eating out: 1-3 times/week during the past year weight has: remained stable what type of physical activity do you participate in: none ana/buddhist: Zoroastrian seatbelt use: always do you feel safe at home: Yes 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 Date Name GA/Weeks Outcome Route Bth Weight Gen Labor Lgth Anesthesia Del Locatn Provider FOB Unknown SAB 202212/06/19 Elver 37 live - full term 7lbs 2oz Male 13 hours epidural [facility] ESTEFANY Byrd 08/15/21 Lacey 40 live - full term 7lbs 5oz Female epidural [facility] [employer] [facility] Gurinder Merrill Delivery Date: 12/06/19 Last Updated by: Perla LOPEZTCorrine- IoL at 37 weeks; heavy bleeding w/o hemorrhage- methergine given; 2nd degree laceration Delivery Date: 08/15/21 Last Updated by: Ibis Perry see problem list for complications HPI 33 WK OB Details: BERNARD GUTIERRES is a 33 year old who presents for routine OB visit. OB Visit YUKO Calculator Estimated Delivery Date Method Current WG Current Estimate 04/11/24 LMP (Certain) 32w 6d Expected Delivery Route/Plan Labor Preferences- CB/BF classes: [] labor support person: [] labor intervention preferences: [] pain management options preferred: [] cut cord/dad catch: [] : [] PP control planned: [] discussed possible routes of delivery and associated risks: [] special requests: [] Specific Issue/Plans Covid status: [] Flu vaccine: given Tdap vaccine: given Rhogam: na LARC form signed: movement and labor precautions reviewed. Problem list reviewed and updated with the most current plan of care details and appropriate orders placed. Relevant counseling for the gestational age provided. Continue routine care and follow up unless otherwise noted in visit notes/problem list details Initial Weight: Not Recorded Date -???-???-???-???-?? ?-???-???-???-???-? ??-???-???- EGA Weight BP Urine Prot -???-???-???-???-?? ?-???-???-???-???-? ??-???-???- Glucose FHR FuHt Pres Dilation -???-???-???-???-?? ?-???-???-???-???-? ??-???-???- Effaced St Visit Note 08/25/23 -???-???-???-???-?? ?-???-???-???-???-? ??-???-???- 7w 1d 139 lb 6 oz 104/71 -???-???-???-???-?? ?-???-???-???-???-? ??-???-???- 141 (more content not included)... Normal [facility] Civil Lawyer Office Visit Reporton 02-07-2024 Civil Lawyer Office Visit Report [facility] [address], [address] [place] [address] OFFICE VISIT Date of Service: 02/07/24 MR#: [id number] Acct: [id number] Name: BERNARD GUTIERRES Rep #: [id number] : 1990 Provider: FILIBERTO Zhao ams Age/Sex: 33/F Location[place] [facility] Status: Signed Intake Vital Signs 10/25/23 09:50 12/18/23 13:45 01/24/24 15:21 02/07/24 13:00 02/07/24 13:03 Height 5 ft 6 in 5 ft 6 in 5 ft 6 in 5 ft 6 in 5 ft 6 in Weight: 161 lb BMI 25.9 BP 121/80 H Intake Visit 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 Is patient in pain?: No Allergies No Known Allergies Allergy (Verified 02/07/24 12:59) Medications ???Medication ???Instructions ???Recorded ???Confirmed ???Type multivit-min no.71-iron fum 28 cap PO 04/14/23 02/07/24 History mg-folate no.1 1 mg-dha 300 mg capsule (PNV-[facility]) Last Menstrual Period: 07/06/23 Current gender identity: female Zika: Zika virus screening: Negative PFSH PFSH Medical History Seasonal allergies Bleeding in early Vaginal delivery Gestational HTN History of gestational hypertension Surgical History Advance teeth extracted History of tonsillectomy and adenoidectomy Family History Father Diabetes Grandmother Breast cancer, Onset Age: 70 Maternal Grandfather Cancer, Onset Age: 85 parotid gland cancer Heart disease Mother Breast cancer, Onset Age: 60 Aunt Diabetes Paternal Uncle Diabetes paternal Social History adopted: No household members: spouse and children number of children: 2 current occupational status: employed current occupation: [employer]- [employer] current occupational exposures/hazards: No pets and animals: Yes pets and animals: dog(s) history of recent travel: Yes ([place]) out of state: Yes out of country: No sexually active: Yes current gender identity: female Smoking Status: Never smoker second hand exposure: No alcohol intake: current alcohol intake frequency: holidays/special occasions only details: NOT WHILE substance use type: does not use well-balanced diet: daily or most days caffeine: No eating out: 1-3 times/week during the past year weight has: remained stable what type of physical activity do you participate in: none ana/buddhist: Zoroastrian seatbelt use: always do you feel safe at home: Yes 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 Date Name GA/Weeks Outcome Route Bth Weight Gen Labor Lgth Anesthesia Del Locatn Provider FOB Unknown 202212/06/19 Elver 37 live - full term 7lbs 2oz Male [address] [facility] ESTEFANY Byrd 08/15/21 Lacey 40 live - full term 7lbs 5oz Female epidural [facility] Gurinder Mccullough Velrita Delivery Date: 12/06/19 Last Updated by: Perla Blue GHTN- IoL at 37 weeks; heavy bleeding w/o hemorrhage- methergine given; 2nd degree laceration Delivery Date: 08/15/21 Last Updated by: Ibis Perry see problem list for complications HPI 31 wk ob Details: BERNARD GUTIERRES is a 33 year old who presents for routine OB visit. OB Visit YUKO Calculator Estimated Delivery Date Method Current WG Current Estimate 04/11/24 LMP (Certain) 30w 6d Expected Delivery Route/Plan Labor Preferences- CB/BF classes: [] labor support person: [] labor intervention preferences: [] pain management options preferred: [] cut cord/dad catch: [] : [] PP control planned: [] discussed possible routes of delivery and associated risks: [] special requests: [] Specific Issue/Plans Covid status: [] Flu vaccine: given Tdap vaccine: given Rhogam: na LARC form signed: movement and labor precautions reviewed. Problem list reviewed and updated with the most current plan of care details and appropriate orders placed. Relevant counseling for the gestational age provided. Continue routine care and follow up unless otherwise noted in visit notes/problem list details Initial Weight: Not Recorded Date -???-???-???-???-?? ?-???-???-???-???-? ??-???-???- EGA Weight BP Urine Prot -???-???-???-???-?? ?-???-???-???-???-? ??-???-???- Glucose FHR FuHt Pres Dilation -???-???-???-???-?? ?-???-???-???-???-? ??-???-???- Effaced St Visit Note 08/25/23 -???-???-???-???-?? ?-???-???-???-???-? ??-???-???- 7w 1d 139 lb 6 oz 104/71 -???-?? (more content not included)... Normal [facility] Civil Lawyer Office Visit Reporton 01-24-2024 Civil Lawyer Office Visit Report [facility] [address], [address] [place] [address] OFFICE VISIT Date of Service: 01/24/24 MR#: [id number] Acct: [id number] Name: BERNARD GUTIERRES Rep #: [id number] : 1990 Provider: Dr. Trisha tobin MD Age/Sex: 33/F Location: [facility] [place] Status: Signed Intake Vital Signs 10/25/23 09:50 12/18/23 13:45 01/24/24 15:13 01/24/24 15:21 Height 5 ft 6 in 5 ft 6 in 5 ft 6 in 5 ft 6 in Weight: 158 lb BMI 25.4 BP 119/74 Intake Visit Reasons: 28 wk ob/glucose 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 Is patient in pain?: No Allergies No Known Allergies Allergy (Verified 01/24/24 15:19) Medications ???Medication ???Instructions ???Recorded ???Confirmed ???Type multivit-min no.71-iron fum 28 cap PO 04/14/23 01/24/24 History mg-folate no.1 1 mg-dha 300 mg capsule (PNV-[facility]) Last Menstrual Period: 07/06/23 Zika: Zika virus screening: Negative : No PFSH PFSH Medical History Seasonal allergies Bleeding in early Vaginal delivery Gestational HTN History of gestational hypertension Surgical History Advance teeth extracted History of tonsillectomy and adenoidectomy Family History Father Diabetes Grandmother Breast cancer, Onset Age: 70 Maternal Grandfather Cancer, Onset Age: 85 parotid gland cancer Heart disease Mother Breast cancer, Onset Age: 60 Aunt Diabetes Paternal Uncle Diabetes paternal Social History adopted: No household members: spouse and children number of children: 2 current occupational status: employed current occupation: [employer]- [employer] current occupational exposures/hazards: No pets and animals: Yes pets and animals: dog(s) history of recent travel: Yes ([place]) out of state: Yes out of country: No sexually active: Yes Smoking Status: Never smoker second hand exposure: No alcohol intake: current alcohol intake frequency: holidays/special occasions only details: NOT WHILE substance use type: does not use well-balanced diet: daily or most days caffeine: No eating out: 1-3 times/week during the past year weight has: remained stable what type of physical activity do you participate in: none ana/buddhist: Zoroastrian seatbelt use: always do you feel safe at home: Yes 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 Date Name GA/Weeks Outcome Route Bth Weight Gen Labor Lgth Anesthesia Del Locatn Provider FOB Unknown 202212/06/19 Elver 37 live - full term 7lbs 2oz Male [address] [facility] Carson 08/15/21 Lacey 40 live - full term 7lbs 5oz Female epidural [facility] Gurinder lianna Merrill Delivery Date: 12/06/19 Last Updated by: Perla Blue GHTCorrine- IoL at 37 weeks; heavy bleeding w/o hemorrhage- methergine given; 2nd degree laceration Delivery Date: 08/15/21 Last Updated by: Ibis Perry see problem list for complications HPI 28 wk ob/glucose Details: BERNARD GUTIERRES is a 33 year old who presents for routine OB visit. OB Visit YUKO Calculator Estimated Delivery Date Method Current WG Current Estimate 04/11/24 LMP (Certain) 28w 6d Expected Delivery Route/Plan Labor Preferences- CB/BF classes: [] labor support person: [] labor intervention preferences: [] pain management options preferred: [] cut cord/dad catch: [] : [] PP control planned: [] discussed possible routes of delivery and associated risks: [] special requests: [] Specific Issue/Plans Covid status: [] Flu vaccine: given Tdap vaccine: given Rhogam: na LARC form signed: movement and labor precautions reviewed. Problem list reviewed and updated with the most current plan of care details and appropriate orders placed. Relevant counseling for the gestational age provided. Continue routine care and follow up unless otherwise noted in visit notes/problem list details Initial Weight: Not Recorded Date -???-???-???-???-?? ?-???-???-???-???-? ??-???-???- EGA Weight BP Urine Prot -???-???-???-???-?? ?-???-???-???-???-? ??-???-???- Glucose FHR FuHt Pres Dilation -???-???-???-???-?? ?-???-???-???-???-? ??-???-???- Effaced St Visit Note 08/25/23 -???-???-???-???-?? ?-???-???-???-???-? ??-???-???- 7w 1d 139 lb 6 oz 104/71 -???-???-???-???-?? ?-???-???-???-???-? ??-???-??? (more content not included)... Normal [facility] CBC W/Diff, Automatedon 09-2 Absolute Lymph 1.18 X10 3/uL Normal 0.83-4.51 [facility] Comment on above: Performed By: #### L 100.0100, L3890.6005, L509.8000, L501.0250 ####[facility] [address] [place], [place], [phone] Absolute Neut 7.0 X10 3/uL Normal 2.0-7.7 [facility] Comment on above: Performed By: #### L 100.0100, L3890.6005, L509.8000, L501.0250 ####[facility] [address] [place], [address] Basophils/100 WBC (Bld) 0.6 % Normal 0 - 1 [facility] [place] [employer] [facility].; [facility]. Work Phone: Comment on above: Performed By: #### L 100.0100, L3890.6005, L509.8000, L501.0250 ####[facility] [address] [place], [place], [phone]) Eosinophils/100 WBC (Bld) 1.3 % Normal 0 - 5 [facility]; [facility] Work Phone: Comment on above: Performed By: #### L 100.0100, L3890.6005, L509.8000, L501.0250 ####[facility] [address] [place], [place], [phone]) Erythrocyte distribution width (RBC) [Ratio] 12.8 % Normal 11.6 - 14.6 [facility]; [facility] Work Phone: Comment on above: Performed By: #### L 100.0100, L3890.6005, L509.8000, L501.0250 ####[facility] [address] [place], [place], [phone]) Hematocrit (Bld) [Volume fraction] 35.7 % Abnormal 37 - 47 [facility]; [facility] Work Phone: Comment on above: Performed By: #### L 100.0100, L3890.6005, L509.8000, L501.0250 ####[facility] [address] [place], [place], [phone]) Hemoglobin (Bld) [Mass/Vol] 11.8 g/dL Abnormal 12.0 - 15.0 g/dL [facility]; [facility] Work Phone: Comment on above: Performed By: #### L 100.0100, L3890.6005, L509.8000, L501.0250 ####[facility] [address] [place], [place], [phone]) IG% 0.700 Normal 0.0 - 0.9 [facility]; [facility]. Work Phone: Comment on above: Result Comment: IG% - Immature Granulocytes (promyelocytes, myelocytes and metamyelocytes) > 1% indicates that a LEFT SHIFT is Present. Performed By: #### L 100.0100, L3890.6005, L509.8000, L501.0250 ####[facility] [address] [place], [place], [phone]) Lymphocytes/100 WBC (Bld) 13.6 % Abnormal 19 - 41 [facility]; [facility] Work Phone: Comment on above: Performed By: #### L 100.0100, L3890.6005, L509.8000, L501.0250 ####[facility] [address] [place], [place], [phone] MCH (RBC) [Entitic mass] 29.5 pg Normal 27.0 - 32.0 pg [facility].; [facility] Work Phone: Comment on above: Performed By: #### L 100.0100, L3890.6005, L509.8000, L501.0250 ####[facility] [address] [place], [place], [phone]) MCHC (RBC) [Mass/Vol] 33.1 g/dL Normal 32 - 36 g/dL E [facility].; [facility]. Work Phone: Comment on above: Performed By: #### L 100.0100, L3890.6005, L509.8000, L501.0250 ####[facility] [address] [place], [place], [phone]) MCV (RBC) [Entitic vol] 89.3 fL Normal 81 - 99 fL E [facility].; [facility] Work Phone: Comment on above: Performed By: #### L 100.0100, L3890.6005, L509.8000, L501.0250 ####[facility] [address] [place], [place], [phone] Monocytes/100 WBC (Bld) 3.2 % Normal 0 - 10 E [facility].; [facility]. Work Phone: Comment on above: Performed By: #### L 100.0100, L3890.6005, L509.8000, L501.0250 ####[facility] [address] [place], [place], [phone] Neutrophils/100 WBC (Bld) 80.6 % Abnormal 47 - 70 [facility].; [facility] Work Phone: Comment on above: Performed By: #### L 100.0100, L3890.6005, L509.8000, L501.0250 ####[facility] [address] [place], [place], [phone] Nucleated RBC (Bld) [#/Vol] 0 10*3/uL Normal 0 - 5 [facility].; [facility] Work Phone: Comment on above: Performed By: #### L 100.0100, L3890.6005, L509.8000, L501.0250 ####[facility] [address] [place], [place], [phone]) Platelet mean volume (Bld) [Entitic vol] 10.2 fL Normal 6.2 - 12.0 fL [facility].; [facility] Work Phone: Comment on above: Performed By: #### L 100.0100, L3890.6005, L509.8000, L501.0250 ####[facility] [address] [place], [place], [phone]) Platelets (Bld) [#/Vol] 210 10*3/uL Normal 150 - 450 K/mm3 [facility].; [facility]. Work Phone: Comment on above: Performed By: #### L 100.0100, L3890.6005, L509.8000, L501.0250 ####[facility] [address] [place], [place], [phone] RBC (Bld) [#/Vol] 4.00 10*6/uL Abnormal 4.2 - 5.4 {M/mm3} [facility].; [facility] Work Phone: Comment on above: Performed By: #### L 100.0100, L3890.6005, L509.8000, L501.0250 ####[facility] [address] [facility]. [place], [place], [phone] RDW SD 42.2 fL Normal 35.1 - 43.9 fL [facility].; [facility]. Work Phone: Comment on above: Performed By: #### L 100.0100, L3890.6005, L509.8000, L501.0250 ####[facility] [address] [place], [place], [phone]) WBC (Bld) [#/Vol] 8.7 10*3/uL Normal 4.4 - 11.0 K/mm3 [facility].; [facility], [facility]. Work Phone: Comment on above: Performed By: #### L 100.0100, L3890.6005, L509.8000, L501.0250 ####[facility] [address] [place], [place], [address] Glucose Challenge Gest 1H 50 bello 01-19-2024 GLU GEST 50g 1H 95 mg/dL Normal 70-140 [facility] Comment on above: Performed By: #### L 100.0100, L3890.6005, L509.8000, L501.0250 ####[facility] [address] [place], [place], [address] HIV - WCHon 01-19-2024 HIV Non-Reactive Normal [facility]; [facility] Work Phone: Comment on above: Performed By: #### L 100.0100, L3890.6005, L509.8000, L501.0250 ####[facility] [address] [place], [place], [address] L509.8000on 01-19-2024 Syphilis Abs Non-Reactive Normal [facility]; [facility] Work Phone: Comment on above: Performed By: #### L 100.0100, L3890.6005, L509.8000, L501.0250 ####[facility] [address] [place], [place], [phone] Laboratory - Chemistry and C hemistry - challengeon 01-19-2024 Magnesium [Mass/Vol] 95 mg/dL Normal 70 - 140 mg/dL [facility]; [facility]. Work Phone: No Panel Informationon 01-18 Absolute Lymph 1.18 {X10_3/uL} Normal 0.83 - 4.5 1 {X10_3/uL} [facility]; [facility]. Work Phone: Absolute Neut 7.0 {X10_3/uL} Normal 2.0 - 7.7 {X10_3/uL} [facility] [facility]; [facility] [employer] [facility]. Work Phone: Civil Lawyer Office Visit Reporton 12-18-2023 Civil Lawyer Office Visit Report [facility] [address], [address] [place] [address] OFFICE VISIT Date of Service: 12/18/23 MR#: [id number] Acct: [id number] Name: BERNARD GUTIERRES Rep #: [id number] : 1990 Provider: Dr. 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 Is patient in pain?: No Allergies No Known Allergies Allergy (Verified 12/18/23 13:44) Medications ???Medication ???Instructions ???Recorded ???Confirmed ???Type multivit-min no.71-iron fum 28 cap PO 04/14/23 12/18/23 History mg-folate no.1 1 mg-dha 300 mg capsule (PNV-[facility]) Last Menstrual Period: 07/06/23 Zika: Zika virus screening: Negative : No PFSH PFSH Medical History Seasonal allergies Bleeding in early Vaginal delivery Gestational HTN History of gestational hypertension Surgical History Advance teeth extracted History of tonsillectomy and adenoidectomy Family History Father Diabetes Grandmother Breast cancer, Onset Age: 70 Maternal Grandfather Cancer, Onset Age: 85 parotid gland cancer Heart disease Mother Breast cancer, Onset Age: 60 Aunt Diabetes Paternal Uncle Diabetes paternal Social History adopted: No household members: spouse and children number of children: 2 current occupational status: employed current occupation: [employer]- [employer] current occupational exposures/hazards: No pets and animals: Yes pets and animals: dog(s) history of recent travel: Yes ([place]) out of state: Yes out of country: No sexually active: Yes Smoking Status: Never smoker second hand exposure: No alcohol intake: current alcohol intake frequency: holidays/special occasions only details: NOT WHILE substance use type: does not use well-balanced diet: daily or most days caffeine: No eating out: 1-3 times/week during the past year weight has: remained stable what type of physical activity do you participate in: none ana/buddhist: Zoroastrian seatbelt use: always do you feel safe at home: Yes 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 Date Name GA/Weeks Outcome Route Bth Weight Infant Gen Labor Lgth Anesthesia Del Locatn Provider FOB Unknown SAB 202212/06/19 Elver 37 live - full term 7lbs 2oz Male [address] [facility] [employer] ESTEFANY Byrd 08/15/21 Lacey 40 live - full term 7lbs 5oz Female epidural [facility] Gurinder Merrill Delivery Date: 12/06/19 Last Updated by: Perla Blue GHTN- IoL at 37 weeks; heavy bleeding w/o hemorrhage- methergine given; 2nd degree laceration Delivery Date: 08/15/21 Last Updated by: Ibis Perry see problem list for complications HPI 24 wk ob Details: BERNARD GUTIERRES is a 33 year old who presents for routine OB visit. OB Visit YUKO Calculator Estimated Delivery Date Method Current WG Current Estimate 04/11/24 LMP (Certain) 23w 4d Expected Delivery Route/Plan Labor Preferences- CB/BF classes: [] labor support person: [] labor intervention preferences: [] pain management options preferred: [] cut cord/dad catch: [] : [] PP control planned: [] discussed possible routes of delivery and associated risks: [] special requests: [] Specific Issue/Plans Covid status: [] Flu vaccine: [] Tdap vaccine: [] Rhogam: [] LARC form signed: [] Problem list reviewed and updated with the most current plan of care details and appropriate orders placed. Relevant counseling for the gestational age provided. Continue routine care and follow up unless otherwise noted in visit notes/problem list details Initial Weight: Not Recorded Date -???-???-???-???-?? ?-???-???-???-???-? ??-???-???- EGA Weight BP Urine Prot -???-???-???-???-?? ?-???-???-???-???-? ??-???-???- Glucose FHR FuHt Pres Dilation -???-???-???-???-?? ?-???-???-???-???-? ??-???-???- Effaced St Visit Note 08/25/23 -???-???-???-???-?? ?-???-???-???-???-? ??-???-???- 7w 1d 139 lb 6 oz 104/71 -???-???-???-???-?? ?-???-???-???-???-? ??-???-???- 141 -???-???-???-???-?? ?-???-???-???-???-? ??- (more content not included)... Normal [facility] OB Anatomy w/ Transvaginalon 11-23-2023 OB Anatomy w/ Transvaginal [facility] Imaging Services [facility] [place] [address] OB Anatomy w/ Transvaginal MR#: [id number] Acct: [id number] Name: BERNARD GUTIERRES Rep #: [id number] : 1990 F 32 From: Darnell suarez MD PCP: Dr. Job Alatorre MD Status: REG CLI Study: OB Anatomy w/ Transvaginal Date of Exam: 11/22 Exam# [id number] Ordering Dr: Trisha Childs -[id number] INDICATION: ANATIOMY W/ CERVICAL LENGTH EXAMINATION: Ultrasound US OB Complete W/ Detail single or first gestation TECHNIQUE: Transabdominal and transvaginal pelvic ultrasound was performed. COMPARISON: Prior study dated: 04/19/2023 ____ LMP: 07/06/2023 Beta-hCG: Unknown. Provided EGA: 20 weeks 0 days FINDINGS: INTRAUTERINE GESTATION(s): Single. ESTIMATED GESTATIONAL AGE: 20 weeks 0 days ESTIMATED DUE DATE (YUKO): 04/11/2024 BIOMETRIC MEASUREMENTS: HEAD CIRCUMFERENCE: 17.46 cm which corresponds to 20 weeks 0 days. BIPARIETAL DIAMETER: 4.72 cm which corresponds to 20 weeks 2 days. ABDOMINAL CIRCUMFERENCE: 14.66 cm which corresponds to 20 weeks 0 days. FEMORAL LENGTH: 3.24 cm which corresponds to 20 weeks 1 day. The visualized cranium, chest, abdomen and pelvis, spine, and extremities are unremarkable. HEART MOTION is 143 bpm. MAXIMUM AMNIOTIC FLUID POCKET: 5 cm ESTIMATED WEIGHT: 329 g Percentile 49%. BIOPHYSICAL PROFILE (BPP): Not assessed. PRESENTATION: Cephalic PLACENTA: Posterior. There is no placenta previa or abruption. CERVIX: The cervix is closed. Cervical length 4.3 cm. FREE FLUID: None. IMPRESSION: Single live intrauterine of gestational age by ultrasound of 20 weeks 0 days. No acute abnormality. Electronically Signed: Darnell Muñoz MD at 23:29 EDT , [id number] INDICATION: ANATIOMY W/ CERVICAL LENGTH EXAMINATION: Ultrasound US OB Transvaginal TECHNIQUE: Transabdominal and transvaginal pelvic ultrasound was performed. COMPARISON: Prior study dated: 04/19/2023 ____ LMP: 07/06/2023 Beta-hCG: Unknown. Provided EGA: 20 weeks 0 days FINDINGS: INTRAUTERINE GESTATION(s): Single. ESTIMATED GESTATIONAL AGE: 20 weeks 0 days ESTIMATED DUE DATE (YUKO): 04/11/2024 BIOMETRIC MEASUREMENTS: HEAD CIRCUMFERENCE: 17.46 cm which corresponds to 20 weeks 0 days. BIPARIETAL DIAMETER: 4.72 cm which corresponds to 20 weeks 2 days. ABDOMINAL CIRCUMFERENCE: 14.66 cm which corresponds to 20 weeks 0 days. FEMORAL LENGTH: 3.24 cm which corresponds to 20 weeks 1 day. The visualized cranium, chest, abdomen and pelvis, spine, and extremities are unremarkable. HEART MOTION is 143 bpm. MAXIMUM AMNIOTIC FLUID POCKET: 5 cm ESTIMATED WEIGHT: 329 g Percentile 49%. BIOPHYSICAL PROFILE (BPP): Not assessed. PRESENTATION: Cephalic PLACENTA: Posterior. There is no placenta previa or abruption. CERVIX: The cervix is closed. Cervical length 4.3 cm. FREE FLUID: None. US/OB Anatomy w/ Transvaginal IMPRESSION: Single live intrauterine of gestational age by ultrasound of 20 weeks 0 days. No acute abnormality. Electronically Signed: Darnell Muñoz MD at 23:29 EDT , CC: Dr. Trisha Childs MD; Dr. Job Alatorre MD Personal Fitness Trainer: Signed Normal [facility] [place] Civil Lawyer Office Visit Reporton 11-23-2023 Civil Lawyer Office Visit Report [facility] [address] [place] [address] OFFICE VISIT Date of Service: 11/23/23 MR#: [id number] Acct: [id number] Name: BERNARD GUTIERRES Rep #: [id number] : 1990 Provider: Dr. Trisha tobin MD Age/Sex: 32/F Location: [facility] [place] Status: Signed Intake Vital Signs 09/22/23 15:34 10/25/23 09:50 11/23/23 15:13 Height 5 ft 6 in 5 ft 6 in 5 ft 6 in Weight: 148 lb 6 oz BMI 23.9 BP 110/76 Intake Visit Reasons: 20 WK OB Allergies No Known Allergies Allergy (Verified 10/25/23 09:48) Last Menstrual Period: 07/06/23 PFSH PFSH Medical History Seasonal allergies Bleeding in early Vaginal delivery Gestational HTN History of gestational hypertension Surgical History Advance teeth extracted History of tonsillectomy and adenoidectomy Family History (Updated 10/25/23 @ 09:49 by Radha Rose) Father Diabetes Grandmother Breast cancer, Onset Age: 70 Maternal Grandfather Cancer, Onset Age: 85 parotid gland cancer Heart disease Mother Breast cancer, Onset Age: 60 Aunt Diabetes Paternal Uncle Diabetes paternal Social History adopted: No household members: spouse and children number of children: 2 current occupational status: employed current occupation: [employer]- [employer] current occupational exposures/hazards: No pets and animals: Yes pets and animals: dog(s) history of recent travel: Yes ([place]) out of state: Yes out of country: No sexually active: Yes Smoking Status: Never smoker second hand exposure: No alcohol intake: current alcohol intake frequency: holidays/special occasions only details: NOT WHILE substance use type: does not use well-balanced diet: daily or most days caffeine: No eating out: 1-3 times/week during the past year weight has: remained stable what type of physical activity do you participate in: none ana/buddhist: Zoroastrian seatbelt use: always do you feel safe at home: Yes 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 Date Name GA/Weeks Outcome Route Bth Weight Gen Labor Lgth Anesthesia Del Locatn Provider FOB Unknown SAB 202212/06/19 Elver 37 live - full term 7lbs 2oz Male [address] [facility] ESTEFANY Byrd 08/15/21 Lacey 40 live - full term 7lbs 5oz Female epidural [facility] Gurinder lianna Merrill Delivery Date: 12/06/19 Last Updated by: Perla Blue GHTCorrine- IoL at 37 weeks; heavy bleeding w/o hemorrhage- methergine given; 2nd degree laceration Delivery Date: 08/15/21 Last Updated by: Ibis Perry see problem list for complications HPI 20 WK OB Details: BERNARD GUTIERRES is a 32 year old who presents for routine OB visit. OB Visit YUKO Calculator Estimated Delivery Date Method Current WG Current Estimate 04/11/24 LMP (Certain) 20w 0d Expected Delivery Route/Plan Labor Preferences- CB/BF classes: [] labor support person: [] labor intervention preferences: [] pain management options preferred: [] cut cord/dad catch: [] : [] PP control planned: [] discussed possible routes of delivery and associated risks: [] special requests: [] Specific Issue/Plans Covid status: [] Flu vaccine: [] Tdap vaccine: [] Rhogam: [] LARC form signed: [] Problem list reviewed and updated with the most current plan of care details and appropriate orders placed. Relevant counseling for the gestational age provided. Continue routine care and follow up unless otherwise noted in visit notes/problem list details Initial Weight: Not Recorded Date -???-???-???-???-?? ?-???-???-???-???-? ??-???-???- EGA Weight BP Urine Prot -???-???-???-???-?? ?-???-???-???-???-? ??-???-???- Glucose FHR FuHt Pres Dilation -???-???-???-???-?? ?-???-???-???-???-? ??-???-???- Effaced St Visit Note 08/25/23 -???-???-???-???-?? ?-???-???-???-???-? ??-???-???- 7w 1d 139 lb 6 oz 104/71 -???-???-???-???-?? ?-???-???-???-???-? ??-???-???- 141 -???-???-???-???-?? ?-???-???-???-???-? ??-???-???- kw-CRL cons with dates. Declines NIPT 09/22/23 -???-???-???-???-?? ?-???-???-???-???-? ??-???-???- 11w 1d 143 lb 8 oz 120/71 Negative -???-???-???-???-?? ?-???-???-???-???-? ??-???-???- Negative 140 -???-???-???-???-?? ?-???-???-???-???-? ??-???-???- SM- no vb cr amping 10/25/23 -???-???-???-???-?? ?-???-???-???-???-? ??-???-???- 1 (more content not included)... Normal [facility] [place] Civil Lawyer Office Visit Reporton 10-25-2023 Civil Lawyer Office Visit Report [facility] 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 Is patient in pain?: No Allergies No Known Allergies Allergy (Verified 10/25/23 09:48) Medications ???Medication ???Instructions ???Recorded ???Confirmed ???Type multivit-min no.71-iron fum 28 cap PO 04/14/23 10/25/23 History mg-folate no.1 1 mg-dha 300 mg capsule (PNV-[place]) Last Menstrual Period: 07/06/23 Zika: Zika virus screening: Negative : No Have you fallen in the past year?: No PFSH PFSH Medical History Seasonal allergies Bleeding in early Vaginal delivery Gestational HTN History of gestational hypertension Surgical History Advance teeth extracted History of tonsillectomy and adenoidectomy Family History (Updated 10/25/23 @ 09:49 by Radha Rose) Father Diabetes Grandmother Breast cancer, Onset Age: 70 Maternal Grandfather Cancer, Onset Age: 85 parotid gland cancer Heart disease Mother Breast cancer, Onset Age: 60 Aunt Diabetes Paternal Uncle Diabetes paternal Social History adopted: No household members: spouse and children number of children: 2 current occupational status: employed current occupation: [employer]- [employer] current occupational exposures/hazards: No pets and animals: Yes pets and animals: dog(s) history of recent travel: Yes ([place]) out of state: Yes out of country: No sexually active: Yes Smoking Status: Never smoker second hand exposure: No alcohol intake: current alcohol intake frequency: holidays/special occasions only details: NOT WHILE substance use type: does not use well-balanced diet: daily or most days caffeine: No eating out: 1-3 times/week during the past year weight has: remained stable what type of physical activity do you participate in: none ana/buddhist: Zoroastrian seatbelt use: always do you feel safe at home: Yes 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 Date Name GA/Weeks Outcome Route Bth Weight Gen Labor Lgth Anesthesia Del Locatn Provider FOB Unknown 202212/06/19 Elver 37 live - full term 7lbs 2oz Male [address] [facility] ESTEFANY Byrd 08/15/21 Lacey 40 live - full term 7lbs 5oz Female epidural [facility] Gurinder lianna Mccullough Velrita Delivery Date: 12/06/19 Last Updated by: Perla LOPEZTCorrine- IoL at 37 weeks; heavy bleeding w/o hemorrhage- methergine given; 2nd degree laceration Delivery Date: 08/15/21 Last Updated by: Ibis Perry see problem list for complications HPI 16 WK OB Details: BERNARD GUTIERRES is a 32 year old who presents for routine OB visit. OB Visit YUKO Calculator Estimated Delivery Date Method Current WG Current Estimate 04/11/24 LMP (Certain) 15w 6d Expected Delivery Route/Plan Labor Preferences- CB/BF classes: [] labor support person: [] labor intervention preferences: [] pain management options preferred: [] cut cord/dad catch: [] : [] PP control planned: [] discussed possible routes of delivery and associated risks: [] special requests: [] Specific Issue/Plans Covid status: [] Flu vaccine: [] Tdap vaccine: [] Rhogam: [] LARC form signed: [] Problem list reviewed and updated with the most current plan of care details and appropriate orders placed. Relevant counseling for the gestational age provided. Continue routine care and follow up unless otherwise noted in visit notes/problem list details Initial Weight: Not Recorded Date -???-???-???-???-?? ?-???-???-???-???-? ??-???-???- EGA Weight BP Urine Prot -???-???-???-???-?? ?-???-???-???-???-? ??-???-???- Glucose FHR FuHt Pres Dilation -???-???-???-???-?? ?-???-???-???-???-? ??-???-???- Effaced St Visit Note 08/25/23 -???-???-???-???-?? ?-???-???-???-???-? ??-???-???- 7w 1d 139 lb 6 oz 104/71 -???-???-???-???-?? ?-???-???-???-???-? ??-???-???- 141 -???-???-???-???-?? ?-???-???-???-???-? ??-???-???- kw-C (more content not included)... Normal [facility] Absolute lymphocyte countOrd ered By: Abena Grande on 08-25-2023 Lymphocytes Auto (Unsp spec) [#/Vol] 1.75 10*3/uL 0.83-4.51 [facility] Automated blood erythrocyte count (number/volume)Ordered By: Abena Grande on 08-25-2023 RBC (Bld) [#/Vol] 4.54 10*6/uL Normal 4.2 - 5.4 {M/mm3} [facility] Automated blood hematocrit ( percentage)Ordered By: Abena Grande on 05-03-2024 Hematocrit (Bld) [Volume fraction] 38.9 % Normal 37 - 47 [facility] Automated lymphocyte count a s percentage of total leukocytesOrdered By: Abena Grande on 08-25-2023 Lymphocytes/100 WBC Auto (Unsp spec) 17.7 % 19-41 [facility] Basophil percentageOrdered B y: Abena Grande on 08-25-2023 Basophils/100 WBC (Bld) 0.6 % Normal 0 - 1 [facility] Bilirubin [Mass/Vol] 0.40 mg/dL Normal 0.20 - 1.00 mg/dL [facility] Comment on above: For patients on eltr ombopag therapy, use of Dimension [place] TBIL is not recommended. Chloride [Moles/Vol] 107 mmol/L Normal 98 - 10 7 mmol/L [facility] Eosinophils/100 WBC (Bld) 1.5 % Normal 0 - 5 [facility] Glucose [Mass/Vol] 101 mg/dL Normal 74 - 106 mg/dL [facility] Comment on above: Fasting Glucose resu lt from 100 to 125 mg/dL suggests IMPAIRED HOMEOSTASIS per A.D.A. criteria. Hemoglobin (Bld) [Mass/Vol] 13.4 g/dL Normal 12.0 - 15.0 g/dL [facility] Monocytes/100 WBC (Bld) 4.4 % Normal 0 - 10 [facility] Neutrophils (Bld) [#/Vol] 7.5 10*3/uL 2.0-7.7 [facility] Neutrophils/100 WBC (Bld) 75.5 % Abnormal 47 - 70 [facility] Potassium [Moles/Vol] 4.4 mmol/L Normal 3.5 - 5.1 mmol/L [facility] Protein [Mass/Vol] 7.6 g/dL 6.4-8.2 [facility] Sodium [Moles/Vol] 138 mmol/L Normal 136 - 145 mmol/L [facility] WBC (Bld) [#/Vol] 9.9 10*3/uL Normal 4.4 - 11.0 K/mm3 [facility] Chlamydia trachomatis rRNA d etection by probe and target amplification methodOrdered By: Abena Grande on 08-25-2023 C. trachomatis rRNA LARY+probe Ql (Unsp spec) Negative Negative [facility] Culture, urineOrdered By: Mikie Grande on 08-25-2023 Bacteria identified Cx Nom (U) Culture exhibits no growth. [facility] Determination of erythrocyte mean corpuscular volume (MCV)Ordered By: Abena Grande on 08-25-2023 MCV (RBC) [Entitic vol] 85.7 fL Normal 81 - 99 fL [facility] Erythrocyte distribution wid th ratioOrdered By: Abena Grande on 08-25-2023 Erythrocyte distribution width (RBC) [Ratio] 12.0 % Normal 11.6 - 14.6 [facility] Erythrocyte distribution wid th standard deviationOrdered By: Abena Grande on 08-25-2023 Erythrocyte distribution width (RBC) [Entitic vol] 37.5 fL 35.1-43.9 [facility] HIV 1 and HIV-2 antibody ass ay with HIV-1 p24 antigen detectionOrdered By: Abena Grande on 08-25-2023 HIV 1+2 Ab+HIV1 p24 Ag IA Ql Non-Reactive Nonreactive [facility] Immature granulocytes/100 WB C Auto (Bld)Ordered By: Abean Grande on 08-25-2023 Immature granulocytes/100 WBC (Bld) 0.300 % 0.0-0.9 [facility] Comment on above: IG% - Immature Granu locytes (promyelocytes, myelocytes and metamyelocytes) > 1% indicates that a LEFT SHIFT is Present. Laboratory - Blood bankon ABO and Rh group Nom (Bld) Blood group A Rh(D) positive Normal [facility] Work Phone: Laboratory - Chemistry and C hemistry - challengeon 08-25-2023 Albumin [Mass/Vol] 4.0 g/dL Normal 3.2 - 5.0 g/dL [facility] Work Phone: AST [Catalytic activity/Vol] 10 U/L Abnormal 15 - 37 U/L [facility] Work Phone: GFR/1.73 sq M.predicted among non-blacks MDRD (S/P/Bld) [Vol rate/Area] 125 mL/min/{1.73_m2} Normal [facility]; [facility] Work Phone: Magnesium [Mass/Vol] 9.5 mg/dL Normal 8.5 - 1 0.1 mg/dL [facility]; [facility] Work Phone: Laboratory - Chemistry and C hemistry - challengeOrdered By: Abena Grande on 08-25-2023 Albumin/Globulin [Mass ratio] 1.1 {ratio} Normal 0.9 - 2.4 {RATIO} [facility] ALP [Catalytic activity/Vol] 44 U/L 45-117 [facility] ALT [Catalytic activity/Vol] 16 U/L Normal 13 - 56 U/L [facility] CO2 [Moles/Vol] 27.0 mmol/L Normal 21.0 - 32.0 mmol/L [facility] Globulin (S) [Mass/Vol] 3.6 g/dL Normal 2.2 - 4.2 g/ dL [facility] Urea nitrogen/Creatinine [Mass ratio] 15.1 mg/mg 10-20 [facility] Laboratory - Hematology and Cell countson 08-25-2023 Lymphocytes/100 WBC (Bld) 17.7 % Abnormal 19 - 41 [facility] Work Phone: Nucleated RBC (Bld) [#/Vol] 0 10*3/uL Normal 0 - 5 [facility] Work Phone: Laboratory - Hematology and Cell countsOrdered By: Abena Grande on 08-25-2023 MCH (RBC) [Entitic mass] 29.5 pg Normal 27.0 - 32.0 pg [facility] MCHC (RBC) [Mass/Vol] 34.4 g/dL Normal 32 - 36 g/dL [facility] Nucleated RBC/100 WBC (Bld) [Ratio] 0 % 0-5 [facility] Platelet mean volume (Bld) [Entitic vol] 10.1 fL Normal 6.2 - 12.0 fL [facility] Platelets (Bld) [#/Vol] 274 10*3/uL Normal 150 - 450 K/mm3 [facility] Laboratory - Microbiology an d Antimicrobial susceptibilityOrdered By: Abena Grande on 08-25-2023 N. gonorrhoeae DNA LARY+probe Ql (Unsp spec) Negative Negative [facility] Comment on above: Performed at: =G - L [address] [id number] Director: Diane Adhikari MD, Phone: [phone] No Panel Informationon 08-24 Ab SCREEN GEL Negative Normal [facility] [employer] [email or web address] [facility] [employer] [facility], [employer]. Work Phone: Absolute Lymph 1.75 {X10_3/uL} Normal 0.83 - 4.5 1 {X10_3/uL} [facility], [employer]. Work Phone: Absolute Neut 7.5 {X10_3/uL} Normal 2.0 - 7.7 {X10_3/uL} [facility] [employer] [facility].; [email or web address] [facility], [employer]. Work Phone: ALK P 44 U/L Abnormal 45 - 117 U/L [facility] [employer] [facility] [email or web address] [facility] Work Phone: BUN/CRE 15.1 {RATIO} Normal 10 - 20 {RATIO} [facility] [employer] [facility] [employer] [facility] [employer] Work Phone: CHLAMY,NUC ACID Negative Normal [facility] [employer] [facility] [email or web address] [facility] [employer] [facility], [employer]. Work Phone: EST GFR - AA 151 mL/min Normal [facility] [employer] [facility] [employer] [facility] [employer] [facility] [employer] Work Phone: GAP 4 Abnormal 5 - 15 [facility] [employer] [facility] [email or web address] [facility], [employer]. Work Phone: GC BY NUC ACID Negative Normal [facility]; [facility] Work Phone: HEP B Surf Ag Non-Reactive Normal [facility]; [facility] Work Phone: Hepatitis C AB Non-Reactive Normal [facility].; [facility]. Work Phone: HIV Non-Reactive Normal [facility].; [facility]. Work Phone: IG% 0.300 Normal 0.0 - 0.9 [facility]; [facility] Work Phone: RDW SD 37.5 fL Normal 35.1 - 43.9 fL [facility] Center; [facility] Work Phone: Rubella IgG Reactive [facility].; [facility] Work Phone: Syphilis Abs Non-Reactive Formerly [facility]; [facility]. Work Phone: T PROT 7.6 g/dL Normal 6.4 - 8.2 g/dL [facility]; [facility] Work Phone: URC See Note [facility]; [facility] Work Phone: No Panel InformationOrdered By: Abena Grande on 08-25-2023 Estimated GFR (MDRD) Amer 151 mL/min >60 [facility] Comment on above: GFR Calc Estimated GFR (MDRD) Non-Af Amer 125 mL/min >60 [facility] Comment on above: Non- GFR Calc Hepatitis B Surface Antigen Non-Reactive Nonreactive [facility] Hepatitis C Antibody Non-Reactive Nonreactive [facility] Comment on above: Non Reactive: < 0.8 Equivocal: >/= 0.8 to < 1.0 Reactive: >/= 1.0The CDC requires that a reactive/equivocal HCV antibody result be sent out for confirmation. HCV Quant by PCR testing. Rubella IgG Antibody Reactive Nonreactive [facility] Comment on above: Antibody Results Int erpretation of Immune Status Non Reactive Presumed Non-Immune Equivocal Equivocal Reactive Presumed Immune Serum Treponema species anti body detectionOrdered By: Abena Grande on 08-25-2023 Treponema sp Ab Ql (S) Non-Reactive [facility] Serum or plasma calcium stephanie urement (mass/volume)Ordered By: Abena Grande on 08-25-2023 Calcium [Mass/Vol] 9.5 mg/dL 8.5-10.1 [facility] Serum or plasma creatinine m easurement (mass/volume)Ordered By: Abena Grande on 08-25-2023 Creatinine [Mass/Vol] 0.60 mg/dL Normal 0.55 - 1.02 mg/dL [facility] Comment on above: The validity of the calculated GFR & GFRAA in patients over 70 years has not been determined. Clinical correlation is essential. Serum or plasma urea nitroge n measurement (mass/volume)Ordered By: Abena Grande on 08-25-2023 Urea nitrogen [Mass/Vol] 9 mg/dL Normal 7 - 18 mg/d L [facility] Thin prep Papanicolaou smear with manual screeningOrdered By: Abena Grande on 08-25-2023 Thin prep Papanicolaou smear with manual screening 4.0 g/dL 3.2-5.0 [facility] Thin prep Papanicolaou smear with manual screening 10 U/L 15-37 [facility] Thin prep Papanicolaou smear with manual screening 4 5-15 [facility] No Panel Informationon 05-09 HCG QUANT. 4 m[iU]/mL Normal 1 - 3 m[iU]/mL [facility] Work Phone: Serum or plasma choriogonado tropin detectionOrdered By: Britany Larson on 05-09-2023 HCG ( test) Ql 4 mIU/mL <4 [facility] Comment on above: hCG levels with Gest ational AgeGestational Age hCG mIU/mL (IU/L)0.2 - 1 week 5 - 501-2 weeks 50 - 5002-3 weeks 100 - 36248-2 weeks 500 - 398838-9 weeks 1000 - 243458-1 weeks 39756 - 100,0006-8 weeks 18282 - 200,0002-3 months 00561 - 100,000 No Panel Informationon 05-02 HCG QUANT. 18 m[iU]/mL Abnormal 1 - 3 m[iU]/mL [facility].; [facility] Work Phone: Serum or plasma choriogonado tropin detectionOrdered By: Britany Larson on 05-02-2023 HCG ( test) Ql 18 mIU/mL <4 [facility] Comment on above: hCG levels with Gest ational AgeGestational Age hCG mIU/mL (IU/L)0.2 - 1 week 5 - 501-2 weeks 50 - 5002-3 weeks 100 - 40827-1 weeks 500 - 428740-4 weeks 1000 - 017607-8 weeks 14162 - 100,0006-8 weeks 17047 - 200,0002-3 months 75634 - 100,000 No Panel Informationon 04-23 HCG QUANT. 240 m[iU]/mL Abnormal 1 - 3 m[iU]/mL [facility].; [facility]. Work Phone: Serum or plasma choriogonado tropin detectionOrdered By: Britany Larson on 04-23-2023 HCG ( test) Ql 240 mIU/mL <4 [facility] Comment on above: hCG levels with Gest ational AgeGestational Age hCG mIU/mL (IU/L)0.2 - 1 week 5 - 501-2 weeks 50 - 5002-3 weeks 100 - 65316-6 weeks 500 - 801624-0 weeks 1000 - 181947-6 weeks 73388 - 100,0006-8 weeks 84346 - 200,0002-3 months 55227 - 100,000 No Panel Informationon 04-21 HCG QUANT. 497 m[iU]/mL Abnormal 1 - 3 m[iU]/mL [facility].; [facility] Work Phone: Serum or plasma choriogonado tropin detectionOrdered By: Britany Larson on 04-21-2023 HCG ( test) Ql 497 mIU/mL <4 [facility] Comment on above: hCG levels with Gest ational AgeGestational Age hCG mIU/mL (IU/L)0.2 - 1 week 5 - 501-2 weeks 50 - 5002-3 weeks 100 - 83166-0 weeks 500 - 026537-7 weeks 1000 - 892277-2 weeks 91083 - 100,0006-8 weeks 31066 - 200,0002-3 months 91179 - 100,000 Culture, urineOrdered By: Kiara Larson on 04-19-2023 Bacteria identified Cx Nom (U) Streptococcus agalactiae (B) [facility] Laboratory - Chemistry and C hemistry - challengeon 04-19-2023 Glucose Ql (U) Negative [facility] Laboratory - Urinalysison Protein Ql (U) Negative [facility] No Panel Informationon 04-19 HCG QUANT. 1385 m[iU]/mL Abnormal 1 - 3 m[iU]/mL [facility]; [facility] Work Phone: URC See Note Normal [facility]; [facility] Work Phone: Serum or plasma choriogonado tropin detectionOrdered By: Britany Larson on 04-19-2023 HCG ( test) Ql 1385 mIU/mL <4 [facility] Comment on above: hCG levels with Gest ational AgeGestational Age hCG mIU/mL (IU/L)0.2 - 1 week 5 - 501-2 weeks 50 - 5002-3 weeks 100 - 60082-7 weeks 500 - 452514-2 weeks 1000 - 329821-2 weeks 17005 - 100,0006-8 weeks 40948 - 200,0002-3 months 91078 - 100,000 Absolute lymphocyte counton 08-15-2021 Lymphocytes Auto (Unsp spec) [#/Vol] 1.93 10*3/uL 0.83-4.51 [facility] Work Phone: Automated blood hematocrit ( percentage)on 08-15-2021 Hematocrit (Bld) [Volume fraction] 36.5 % Abnormal 37 - 47 [facility] Work Phone: [phone] Basophil percentageon 2021 Basophils/100 WBC (Bld) 0.4 % Normal 0 - 1 [facility] Work Phone: Eosinophils/100 WBC (Bld) 0.9 % Normal 0 - 5 [facility] Work Phone: Neutrophils (Bld) [#/Vol] 6.3 10*3/uL 2.0-7.7 [facility] Work Phone: Neutrophils/100 WBC (Bld) 71.1 % Abnormal 47 - 70 [facility] Work Phone: WBC (Bld) [#/Vol] 8.9 10*3/uL Normal 4.4 - 11.0 K/mm3 [facility] Work Phone: Blood erythrocytes count (nu mber/volume)on 08-15-2021 RBC (Bld) [#/Vol] 4.25 10*6/uL Normal 4.2 - 5.4 {M/mm3} [facility] Work Phone: Blood hemoglobin measurement (mass/volume)on 08-15-2021 Hemoglobin (Bld) [Mass/Vol] 12.9 g/dL Normal 12.0 - 15.0 g/dL [facility] Work Phone: Blood lymphocytes/100 leukoc yteson 08-15-2021 Lymphocytes/100 WBC (Bld) 21.6 % Normal 19 - 41 [facility] Work Phone: Blood monocytes/100 leukocyt eson 08-15-2021 Monocytes/100 WBC (Bld) 5.7 % Normal 0 - 10 [facility] Work Phone: Blood platelet mean volumeon 08-15-2021 Platelet mean volume (Bld) [Entitic vol] 11.0 fL Normal 6.2 - 12.0 fL [facility] Work Phone: Determination of erythrocyte mean corpuscular volume (MCV)on 08-15-2021 MCV (RBC) [Entitic vol] 85.9 fL Normal 81 - 99 fL [facility] Work Phone: Laboratory - Blood bankon ABO and Rh group Nom (Bld) Blood group A Rh(D) positive Normal [facility]; [facility] Work Phone: Laboratory - Hematology and Cell countson 08-15-2021 Nucleated RBC (Bld) [#/Vol] 0 10*3/uL Normal 0 - 5 [facility]; [facility] Work Phone: Erythrocyte distribution width (RBC) [Entitic vol] 37.8 fL 35.1-43.9 [facility] Work Phone: Erythrocyte distribution width (RBC) [Ratio] 12.2 % Normal 11.6 - 14.6 [facility] Work Phone: Immature granulocytes/100 WBC (Bld) 0.300 % 0.0-0.9 [facility] Work Phone: Comment on above: IG% - Immature Granu locytes (promyelocytes, myelocytes and metamyelocytes) > 1% indicates that a LEFT SHIFT is Present. MCH (RBC) [Entitic mass] 30.4 pg Normal 27.0 - 32.0 pg [facility] Work Phone: Nucleated RBC/100 WBC (Bld) [Ratio] 0 % 0-5 [facility] Work Phone: Laboratory - Microbiology an d Antimicrobial susceptibilityon 08-15-2021 SARS-CoV-2 (COVID-19) RNA LARY+probe Ql (Unsp spec) See Note Normal [facility]; [facility] Work Phone: MCHC [Mass/volume] by Automa ngoc counton 08-15-2021 MCHC (RBC) [Mass/Vol] 35.3 g/dL Normal 32 - 36 g/dL [facility] Work Phone: No Panel Informationon 08-15 Ab SCREEN GEL Negative Normal [facility]; [facility] Work Phone: Absolute Lymph 1.93 {X10_3/uL} Normal 0.83 - 4.5 1 {X10_3/uL} [facility]; [facility] Work Phone: Absolute Neut 6.3 {X10_3/uL} Normal 2.0 - 7.7 {X10_3/uL} [facility]; [facility] Work Phone: IG% 0.300 Normal 0.0 - 0.9 [facility]; [facility] Work Phone: RDW SD 37.8 fL Normal 35.1 - 43.9 fL [facility]; [facility] Work Phone: Platelets bldon 08-15-2021 Platelets (Bld) [#/Vol] 203 10*3/uL Normal 150 - 450 K/mm3 [facility] Work Phone: Laboratory - Chemistry and C hemistry - challengeon 08-13-2021 Glucose Ql (U) Negative [facility] Work Phone: Laboratory - Urinalysison Protein Ql (U) Negative [facility] Work Phone: Laboratory - Chemistry and C hemistry - challengeon 08-06-2021 Glucose Ql (U) Negative [facility] Work Phone: Laboratory - Urinalysison Protein Ql (U) Negative [facility] Work Phone: Laboratory - Chemistry and C hemistry - challengeon 07-30-2021 Glucose Ql (U) Negative [facility] Work Phone: Laboratory - Urinalysison Protein Ql (U) Negative [facility] Work Phone: Laboratory - Chemistry and C hemistry - challengeon 07-23-2021 Glucose Ql (U) Negative [facility] Work Phone: Laboratory - Urinalysison Protein Ql (U) Negative [facility] Work Phone: No Panel Informationon 07-23 ENRIQUE See Note [facility]; [facility]. Work Phone: Group B Streptococcus Culture Group B Beta Streptococcus is not isolated. [facility] Work Phone: Laboratory - Chemistry and C hemistry - challengeon 07-09-2021 Glucose Ql (U) Negative [facility] Work Phone: Laboratory - Urinalysison Protein Ql (U) Negative [facility] Work Phone: Laboratory - Chemistry and C hemistry - challengeon 06-23-2021 Glucose Ql (U) Negative [facility] Work Phone: Laboratory - Urinalysison Protein Ql (U) Negative [facility] Work Phone: Laboratory - Chemistry and C hemistry - challengeon 06-09-2021 Glucose Ql (U) Negative [facility] Work Phone: Laboratory - Urinalysison Protein Ql (U) Negative [facility] Work Phone: Absolute lymphocyte counton 05-20-2021 Lymphocytes Auto (Unsp spec) [#/Vol] 1.48 10*3/uL 0.83-4.51 [facility] Work Phone: Automated blood hematocrit ( percentage)on 05-20-2021 Hematocrit (Bld) [Volume fraction] 36.2 % Abnormal 37 - 47 [facility] Work Phone: Basophil percentageon 2021 Basophils/100 WBC (Bld) 0.5 % Normal 0 - 1 [facility] Work Phone: Eosinophils/100 WBC (Bld) 1.1 % Normal 0 - 5 [facility] Work Phone: Neutrophils (Bld) [#/Vol] 8.0 10*3/uL 2.0-7.7 [facility] Work Phone: Neutrophils/100 WBC (Bld) 79.6 % Abnormal 47 - 70 [facility] Work Phone: WBC (Bld) [#/Vol] 10.1 10*3/uL Normal 4.4 - 11.0 K/mm3 [facility] Work Phone: Blood erythrocytes count (nu mber/volume)on 05-20-2021 RBC (Bld) [#/Vol] 4.11 10*6/uL Abnormal 4.2 - 5.4 {M/mm3} [facility] Work Phone: [phone] Blood hemoglobin measurement (mass/volume)on 05-20-2021 Hemoglobin (Bld) [Mass/Vol] 12.5 g/dL Normal 12.0 - 15.0 g/dL [facility] Work Phone: Blood lymphocytes/100 leukoc yteson 05-20-2021 Lymphocytes/100 WBC (Bld) 14.7 % Abnormal 19 - 41 [facility] Work Phone: Blood monocytes/100 leukocyt eson 05-20-2021 Monocytes/100 WBC (Bld) 3.8 % Normal 0 - 10 [facility] Work Phone: Blood platelet mean volumeon 05-20-2021 Platelet mean volume (Bld) [Entitic vol] 10.1 fL Normal 6.2 - 12.0 fL [facility] Work Phone: Determination of erythrocyte mean corpuscular volume (MCV)on 05-20-2021 MCV (RBC) [Entitic vol] 88.1 fL Normal 81 - 99 fL [facility] Work Phone: Gestational diabetes screen 1-hour screen with 50g oral glucose loadon 05-20-2021 Glucose 1 Hr post 50 g glucose PO [Mass/Vol] 91 mg/dL 70-140 [facility] Work Phone: Laboratory - Chemistry and C hemistry - challengeon 05-20-2021 Magnesium [Mass/Vol] 91 mg/dL Normal 70 - 140 mg/dL [facility]; [facility] Work Phone: Laboratory - Hematology and Cell countson 05-20-2021 Nucleated RBC (Bld) [#/Vol] 0 10*3/uL Normal 0 - 5 [facility]; [facility] Work Phone: Erythrocyte distribution width (RBC) [Entitic vol] 41.5 fL 35.1-43.9 [facility] Work Phone: Erythrocyte distribution width (RBC) [Ratio] 12.8 % Normal 11.6 - 14.6 [facility] Work Phone: Immature granulocytes/100 WBC (Bld) 0.300 % 0.0-0.9 [facility] Work Phone: Comment on above: IG% - Immature Granu locytes (promyelocytes, myelocytes and metamyelocytes) > 1% indicates that a LEFT SHIFT is Present. MCH (RBC) [Entitic mass] 30.4 pg Normal 27.0 - 32.0 pg [facility] Work Phone: Nucleated RBC/100 WBC (Bld) [Ratio] 0 % 0-5 [facility] Work Phone: MCHC [Mass/volume] by Automa ngoc counton 05-20-2021 MCHC (RBC) [Mass/Vol] 34.5 g/dL Normal 32 - 36 g/dL [facility] Work Phone: No Panel Informationon 05-20 Absolute Lymph 1.48 {X10_3/uL} Normal 0.83 - 4.5 1 {X10_3/uL} [facility]; [facility] Work Phone: Absolute Neut 8.0 {X10_3/uL} Abnormal 2.0 - 7.7 {X10_3/uL} [facility]; [facility] Work Phone: IG% 0.300 Normal 0.0 - 0.9 [facility]; [facility] Work Phone: RDW SD 41.5 fL Normal 35.1 - 43.9 fL [facility]; [facility] Work Phone: Platelets bldon 05-20-2021 Platelets (Bld) [#/Vol] 235 10*3/uL Normal 150 - 450 K/mm3 [facility] Work Phone: Laboratory - Chemistry and C hemistry - challengeon 05-06-2021 Glucose Ql (U) Negative [facility] Work Phone: Laboratory - Urinalysison Protein Ql (U) Negative [facility] Work Phone: Laboratory - Blood bankon ABO and Rh group Nom (Bld) Blood group A Rh(D) positive Normal [facility]; [facility] Work Phone: Laboratory - Chemistry and C hemistry - challengeon 01-11-2021 Albumin [Mass/Vol] 3.9 g/dL Normal 3.2 - 5.0 g/dL [facility]; [facility] Work Phone: Albumin/Globulin [Mass ratio] 1.1 {ratio} Normal 0.9 - 2.4 {RATIO} [facility]; [facility] Work Phone: ALT [Catalytic activity/Vol] 19 U/L Normal 13 - 56 U/L [facility]; [facility] Work Phone: AST [Catalytic activity/Vol] 12 U/L Abnormal 15 - 37 U/L [facility]; [facility] Work Phone: Bilirubin [Mass/Vol] 0.20 mg/dL Normal 0.20 - 1.00 mg/dL [facility]; [facility] Work Phone: Chloride [Moles/Vol] 106 mmol/L Normal 98 - 10 7 mmol/L [facility]; [facility] Work Phone: CO2 [Moles/Vol] 25.0 mmol/L Normal 21.0 - 32.0 mmol/L [facility]; [facility] Work Phone: Creatinine [Mass/Vol] 0.54 mg/dL Abnormal 0.55 - 1.02 mg/dL [facility]; [facility] Work Phone: Creatinine [Mass/Vol] 137.00 mg/dL Normal [facility]; [facility] Work Phone: GFR/1.73 sq M.predicted among non-blacks MDRD (S/P/Bld) [Vol rate/Area] 143 mL/min/{1.73_m2} Normal [facility]; [facility] Work Phone: Globulin (S) [Mass/Vol] 3.6 g/dL Normal 2.2 - 4.2 g/ dL [facility]; [facility] Work Phone: Glucose [Mass/Vol] 85 mg/dL Normal 74 - 106 mg/dL [facility]; [facility] Work Phone: Magnesium [Mass/Vol] 9.3 mg/dL Normal 8.5 - 1 0.1 mg/dL [facility]; [facility] Work Phone: Potassium [Moles/Vol] 3.6 mmol/L Normal 3.5 - 5.1 mmol/L [facility]; [facility] Work Phone: Sodium [Moles/Vol] 136 mmol/L Normal 136 - 145 mmol/L [facility]; [facility] Work Phone: Urea nitrogen [Mass/Vol] 12 mg/dL Normal 7 - 18 mg/d L [facility]; [facility] Work Phone: Laboratory - Drug toxicology on 01-11-2021 Amphetamines Ql (U) Negative Normal [facility]; [facility] Work Phone: Cocaine Ql (U) Negative Normal [facility]; [facility] Work Phone: Methadone Ql (U) Negative [facility]; [facility] Work Phone: Opiates Ql (U) Negative [facility]; [facility] Work Phone: Laboratory - Hematology and Cell countson 01-11-2021 Basophils/100 WBC (Bld) 0.6 % Normal 0 - 1 [facility]; [facility]. Work Phone: Eosinophils/100 WBC (Bld) 1.8 % Normal 0 - 5 [facility]; [facility] Work Phone: Erythrocyte distribution width (RBC) [Ratio] 11.9 % Normal 11.6 - 14.6 [facility].; [facility]. Work Phone: Hematocrit (Bld) [Volume fraction] 35.8 % Abnormal 37 - 47 [facility].; [facility]. Work Phone: Hemoglobin (Bld) [Mass/Vol] 12.5 g/dL Normal 12.0 - 15.0 g/dL [facility] CareBioV[facility]; [facility]. Work Phone: Lymphocytes/100 WBC (Bld) 18.7 % Abnormal 19 - 41 [facility].; [facility]. Work Phone: MCH (RBC) [Entitic mass] 30.2 pg Normal 27.0 - 32.0 pg [facility]; [facility]. Work Phone: MCHC (RBC) [Mass/Vol] 34.9 g/dL Normal 32 - 36 g/dL [facility] [place] [employer] [facility].; [facility]. Work Phone: MCV (RBC) [Entitic vol] 86.5 fL Normal 81 - 99 fL [facility] [place].; [facility]. Work Phone: Monocytes/100 WBC (Bld) 4.1 % Normal 0 - 10 [facility] [place] [employer] [facility].; [facility], [facility]. Work Phone: Neutrophils/100 WBC (Bld) 74.5 % Abnormal 47 - 70 [facility]; [facility]. Work Phone: Nucleated RBC (Bld) [#/Vol] 0 10*3/uL Normal 0 - 5 [facility]; [facility] Work Phone: Platelet mean volume (Bld) [Entitic vol] 10.3 fL Normal 6.2 - 12.0 fL [facility]; [facility]. Work Phone: Platelets (Bld) [#/Vol] 258 10*3/uL Normal 150 - 450 K/mm3 [facility]; [facility] Work Phone: RBC (Bld) [#/Vol] 4.14 10*6/uL Abnormal 4.2 - 5.4 {M/mm3} [facility]; [facility]. Work Phone: WBC (Bld) [#/Vol] 10.5 10*3/uL Normal 4.4 - 11.0 K/mm3 [facility]; [facility]. Work Phone: No Panel Informationon 01-11 Ab SCREEN GEL Negative Normal [facility]; [facility] Work Phone: Absolute Lymph 1.96 {X10_3/uL} Normal 0.83 - 4.5 1 {X10_3/uL} [facility].; [facility]. Work Phone: Absolute Neut 7.8 {X10_3/uL} Abnormal 2.0 - 7.7 {X10_3/uL} [facility].; [facility], [facility]. Work Phone: ADEQ Comment Normal [facility]; [facility] [employer] Work Phone: ALK P 49 U/L Normal 45 - 117 U/L [facility].; [facility]. Work Phone: BARBITIURATES Negative [facility].; [facility]. Work Phone: BENZODIAZIPINE Negative [facility].; [facility], [facility]. Work Phone: BUN/CRE 22.3 {RATIO} Abnormal 10 - 20 {RATIO} [facility].; [facility]. Work Phone: CHLAMY,NUC ACID Negative [facility].; [facility]. Work Phone: COMM . [facility].; [facility], [facility]. Work Phone: COMMENT [facility].; [facility]. Work Phone: DIAG Comment [facility].; [facility]. Work Phone: DRUG CONFIRM [facility].; [facility]. Work Phone: ECSTACY Negative [facility].; [facility]. Work Phone: EST GFR - AA 174 mL/min [facility].; [facility]. Work Phone: GAP 5 Normal 5 - 15 [facility], [facility]. Work Phone: GC BY NUC ACID Negative [facility]; [facility]. Work Phone: HEP B Surf Ag Non-Reactive Normal [facility]; [facility] Work Phone: Hepatitis C Ab Non-Reactive Normal [facility]; [facility]. Work Phone: HIV Non-Reactive Normal [facility]; [facility]. Work Phone: HPV RFLX Comment [facility]; [facility] Work Phone: IG% 0.300 Normal 0.0 - 0.9 [facility]; [facility] Work Phone: PAPSMR Comment [facility]; [facility] Work Phone: PCP Negative [facility]; [facility] Work Phone: PERFORM Comment [facility]; [facility] Work Phone: PROT:CRE RATIO 91 {mg/g_CRE} Normal 0 - 200 {mg/g_CRE} [facility]; [facility] Work Phone: PROTEIN,UR.RAN. 12.4 mg/dL Abnormal [facility]; [facility] Work Phone: RDW SD 37.6 fL Normal 35.1 - 43.9 fL [facility]; [facility] Work Phone: Rubella IgG Reactive Normal [facility]; [facility] Work Phone: Syphilis Abs Non-Reactive Normal [facility]; [facility]. Work Phone: T PROT 7.5 g/dL Normal 6.4 - 8.2 g/dL [facility]; [facility], [facility] Work Phone: THC Negative Normal [facility].; [facility]. Work Phone: URC See Note Normal [facility].; [facility]. Work Phone: VISTA UDS PH 6 Normal [facility].; [facility] Work Phone: No Panel Informationon 05-19 URC See Note Normal [facility].; [facility], [facility]. Work Phone: Laboratory - Hematology and Cell countson 12-07-2019 Erythrocyte distribution width (RBC) [Ratio] 12.7 % Normal 11.6 - 14.6 % [facility]; [facility] Work Phone: Hematocrit (Bld) [Volume fraction] 28.0 % Abnormal 37 - 47 % [facility].; [facility], [facility] Work Phone: Hemoglobin (Bld) [Mass/Vol] 9.7 g/dL Abnormal 12.0 - 15.0 g/dL [facility]; [facility], [facility] Work Phone: MCH (RBC) [Entitic mass] 30.3 pg Normal 27.0 - 32.0 pg [facility].; [facility], [facility] Work Phone: MCHC (RBC) [Mass/Vol] 34.6 g/dL Normal 32 - 36 g/dL [facility]; [facility] Work Phone: MCV (RBC) [Entitic vol] 87.5 fL Normal 81 - 99 fL [facility]. Work Phone: Platelet mean volume (Bld) [Entitic vol] 11.1 fL Normal 6.2 - 12.0 fL [facility].; [facility]. Work Phone: Platelets (Bld) [#/Vol] 156 10*3/uL Normal 150 - 450 K/mm3 [facility].; [facility]. Work Phone: RBC (Bld) [#/Vol] 3.20 10*6/uL Abnormal 4.2 - 5.4 {M/mm3} [facility].; [facility]. Work Phone: WBC (Bld) [#/Vol] 12.8 10*3/uL Abnormal 4.4 - 11.0 K/mm3 [facility].; [facility]. Work Phone: No Panel Informationon 12-06 RDW SD 39.6 fL Normal 35.1 - 43.9 fL [facility]; [facility]. Work Phone: Laboratory - Blood bankon ABO and Rh group Nom (Bld) Blood group A Rh(D) positive Normal [facility] Care[facility]; [facility]. Work Phone: Laboratory - Hematology and Cell countson 12-05-2019 Basophils/100 WBC (Bld) 0.5 % Normal 0 - 1 % [facility].; [facility], [facility]. Work Phone: Eosinophils/100 WBC (Bld) 0.8 % Normal 0 - 5 % [facility].; [facility]. Work Phone: Erythrocyte distribution width (RBC) [Ratio] 12.3 % Normal 11.6 - 14.6 % [facility]; [facility] Work Phone: Hematocrit (Bld) [Volume fraction] 34.8 % Abnormal 37 - 47 % [facility].; [facility] Work Phone: Hemoglobin (Bld) [Mass/Vol] 11.9 g/dL Abnormal 12.0 - 15.0 g/dL [facility].; [facility]. Work Phone: Lymphocytes/100 WBC (Bld) 17.1 % Abnormal 19 - 41 % [facility] Care[facility]; [facility]. Work Phone: MCH (RBC) [Entitic mass] 29.8 pg Normal 27.0 - 32.0 pg [facility]; [facility]. Work Phone: MCHC (RBC) [Mass/Vol] 34.2 g/dL Normal 32 - 36 g/dL [facility].; [facility]. Work Phone: MCV (RBC) [Entitic vol] 87.2 fL Normal 81 - 99 fL [facility] [place].; [facility]. Work Phone: Monocytes/100 WBC (Bld) 4.9 % Normal 0 - 10 % [facility].; [facility]. Work Phone: Neutrophils/100 WBC (Bld) 76.4 % Abnormal 47 - 70 % [facility] Care[facility]; [facility]. Work Phone: Platelet mean volume (Bld) [Entitic vol] 11.5 fL Normal 6.2 - 12.0 fL [facility]; [facility]. Work Phone: Platelets (Bld) [#/Vol] 194 10*3/uL Normal 150 - 450 K/mm3 [facility]; [facility]. Work Phone: RBC (Bld) [#/Vol] 3.99 10*6/uL Abnormal 4.2 - 5.4 {M/mm3} [facility].; [facility]. Work Phone: WBC (Bld) [#/Vol] 9.5 10*3/uL Normal 4.4 - 11.0 K/mm3 [facility]; [facility]. Work Phone: No Panel Informationon 12-04 Absolute Lymph 1.62 {X10_3/uL} Normal 0.83 - 4.5 1 {X10_3/uL} [facility]; [facility]. Work Phone: Absolute Neut 7.2 {X10_3/uL} Normal 2.0 - 7.7 {X10_3/uL} [facility].; [facility], [facility]. Work Phone: IM GRAN % 0.300 % Normal 0.0 - 0.9 % [facility]; [facility]. Work Phone: NRBC, FLAGGED 0 % Normal 0 - 5 % [facility]; [facility]. Work Phone: RDW SD 39.0 fL Normal 35.1 - 43.9 fL [facility]; [facility], [facility]. Work Phone: Laboratory - Chemistry and C hemistry - challengeon 12-03-2019 Albumin [Mass/Vol] 2.7 g/dL Abnormal 3.2 - 5.0 g/dL [facility].; [facility] Work Phone: Albumin/Globulin [Mass ratio] 0.8 {ratio} Abnormal 0.9 - 2.4 {RATIO} [facility]; [facility] Work Phone: ALT [Catalytic activity/Vol] 17 U/L Normal 13 - 56 U/L [facility]; [facility]. Work Phone: AST [Catalytic activity/Vol] 20 U/L Normal 15 - 37 U/L [facility]; [facility] Work Phone: Bilirubin [Mass/Vol] 0.40 mg/dL Normal 0.20 - 1.00 mg/dL [facility]; [facility]. Work Phone: Calcium [Mass/Vol] 8.8 mg/dL Normal 8.5 - 10. 1 mg/dL [facility]; [facility]. Work Phone: Chloride [Moles/Vol] 108 mmol/L Abnormal 98 - 10 7 mmol/L [facility]; [facility]. Work Phone: CO2 [Moles/Vol] 25.0 mmol/L Normal 21.0 - 32.0 mmol/L [facility]; [facility]. Work Phone: Creatinine [Mass/Vol] 88.00 mg/dL Normal [facility]; [facility], [facility] Work Phone: Creatinine [Mass/Vol] 0.54 mg/dL Abnormal 0.55 - 1.02 mg/dL [facility]; [facility] Work Phone: GFR/1.73 sq M.predicted among non-blacks MDRD (S/P/Bld) [Vol rate/Area] 145 mL/min/{1.73_m2} Normal [facility]; [facility] Work Phone: Globulin (S) [Mass/Vol] 3.6 g/dL Normal 2.2 - 4.2 g/ dL [facility]; [facility] Work Phone: Glucose [Mass/Vol] 86 mg/dL Normal 74 - 106 mg/dL [facility]; [facility] Work Phone: Potassium [Moles/Vol] 3.6 mmol/L Normal 3.5 - 5.1 mmol/L [facility]; [facility] Work Phone: Sodium [Moles/Vol] 138 mmol/L Normal 136 - 145 mmol/L [facility]; [facility] Work Phone: Urea nitrogen [Mass/Vol] 8 mg/dL Normal 7 - 18 mg/d L [facility]; [facility] Work Phone: Laboratory - Hematology and Cell counts 12-03-2019 Erythrocyte distribution width (RBC) [Ratio] 12.6 % Normal 11.6 - 14.6 % [facility]; [facility] Work Phone: Hematocrit (Bld) [Volume fraction] 33.8 % Abnormal 37 - 47 % [facility]; [facility] Work Phone: Hemoglobin (Bld) [Mass/Vol] 11.9 g/dL Abnormal 12.0 - 15.0 g/dL [facility]; [facility]. Work Phone: MCH (RBC) [Entitic mass] 30.4 pg Normal 27.0 - 32.0 pg [facility].; [facility]. Work Phone: MCHC (RBC) [Mass/Vol] 35.2 g/dL Normal 32 - 36 g/dL [facility].; [facility]. Work Phone: MCV (RBC) [Entitic vol] 86.4 fL Normal 81 - 99 fL [facility].; [facility]. Work Phone: Platelet mean volume (Bld) [Entitic vol] 11.1 fL Normal 6.2 - 12.0 fL [facility].; [facility]. Work Phone: Platelets (Bld) [#/Vol] 183 10*3/uL Normal 150 - 450 K/mm3 [facility]; [facility]. Work Phone: RBC (Bld) [#/Vol] 3.91 10*6/uL Abnormal 4.2 - 5.4 {M/mm3} [facility].; [facility]. Work Phone: WBC (Bld) [#/Vol] 8.5 10*3/uL Normal 4.4 - 11.0 K/mm3 [facility]; [employer] [facility]. Work Phone: No Panel Informationon 12-02 ALK P 110 U/L Normal 45 - 117 U/L [facility]; [employer] [facility]. Work Phone: BUN/CRE 14.9 {RATIO} Normal 10 - 20 {RATIO} [facility]; [employer] [facility]. Work Phone: EST GFR - AA 175 mL/min Normal [facility]; [facility]. Work Phone: Estimated CRCL 147.79 ml/min Normal [facility]; [facility]. Work Phone: GAP 5 Normal 5 - 15 [facility]; [facility]. Work Phone: PROT:CRE RATIO 142 {mg/g_CRE} Normal 0 - 200 {mg/g_CRE} [facility]; [facility] Work Phone: PROTEIN,UR.RAN. 12.5 mg/dL Abnormal [facility]; [facility], [facility] Work Phone: RDW SD 39.2 fL Normal 35.1 - 43.9 fL [facility]; [facility] Work Phone: T PROT 6.3 g/dL Abnormal 6.4 - 8.2 g/dL [facility]; [facility] Work Phone: URIC 5.7 mg/dL Normal 2.6 - 6.0 mg/dL [facility]; [facility] Work Phone: Laboratory - Urinalysison Protein Ql (U) 6.3 mg/dL Normal [facility]; [facility], [facility]. Work Phone: No Panel Informationon 11-28 24hr UR PROTEIN 171.7 {mg/24HR} Abnormal [facility]; [facility], [facility] Work Phone: UR COLLECT TIME 24.0 {HOURS} Normal [facility]; [facility] Work Phone: UR TOTAL VOLUME 2725 mL Normal [facility]; [facility] Work Phone: Laboratory - Chemistry and C hemistry - challengeon 11-27-2019 Albumin [Mass/Vol] 2.7 g/dL Abnormal 3.2 - 5.0 g/dL [facility]; [facility] Work Phone: Albumin/Globulin [Mass ratio] 0.8 {ratio} Abnormal 0.9 - 2.4 {RATIO} [facility]; [facility] Work Phone: ALT [Catalytic activity/Vol] 18 U/L Normal 13 - 56 U/L [facility]; [facility] Work Phone: AST [Catalytic activity/Vol] 21 U/L Normal 15 - 37 U/L [facility]; [facility] Work Phone: Bilirubin [Mass/Vol] 0.30 mg/dL Normal 0.20 - 1.00 mg/dL [facility]; [facility] Work Phone: Calcium [Mass/Vol] 8.5 mg/dL Normal 8.5 - 10. 1 mg/dL [facility]; [facility] Work Phone: Chloride [Moles/Vol] 109 mmol/L Abnormal 98 - 10 7 mmol/L [facility]; [facility] Work Phone: CO2 [Moles/Vol] 23.0 mmol/L Normal 21.0 - 32.0 mmol/L [facility]; [facility] Work Phone: Creatinine [Mass/Vol] 0.65 mg/dL Normal 0.55 - 1.02 mg/dL [facility]; [facility] Work Phone: GFR/1.73 sq M.predicted among non-blacks MDRD (S/P/Bld) [Vol rate/Area] 117 mL/min/{1.73_m2} Normal [facility]; [facility] Work Phone: Globulin (S) [Mass/Vol] 3.5 g/dL Normal 2.2 - 4.2 g/ dL [facility]; [facility] Work Phone: Glucose [Mass/Vol] 89 mg/dL Normal 74 - 106 mg/dL [facility]; [facility] Work Phone: Potassium [Moles/Vol] 3.6 mmol/L Normal 3.5 - 5.1 mmol/L [facility]; [facility] Work Phone: Sodium [Moles/Vol] 138 mmol/L Normal 136 - 145 mmol/L [facility]; [facility] Work Phone: Urea nitrogen [Mass/Vol] 7 mg/dL Normal 7 - 18 mg/d L [facility]; [facility] Work Phone: Laboratory - Hematology and Cell countson 11-27-2019 Erythrocyte distribution width (RBC) [Ratio] 12.5 % Normal 11.6 - 14.6 % [facility]; [facility] Work Phone: Hematocrit (Bld) [Volume fraction] 32.8 % Abnormal 37 - 47 % [facility]; [facility] Work Phone: Hemoglobin (Bld) [Mass/Vol] 11.5 g/dL Abnormal 12.0 - 15.0 g/dL [facility]; [facility] Work Phone: MCH (RBC) [Entitic mass] 31.8 pg Normal 27.0 - 32.0 pg [facility] Care[facility]; [facility]. Work Phone: MCHC (RBC) [Mass/Vol] 35.1 g/dL Normal 32 - 36 g/dL [facility]; [facility]. Work Phone: MCV (RBC) [Entitic vol] 90.6 fL Normal 81 - 99 fL [facility].; [facility]. Work Phone: Platelet mean volume (Bld) [Entitic vol] 11.5 fL Normal 6.2 - 12.0 fL [facility] Care[facility]; [facility]. Work Phone: Platelets (Bld) [#/Vol] 184 10*3/uL Normal 150 - 450 K/mm3 [facility] Care[facility]; [facility]. Work Phone: RBC (Bld) [#/Vol] 3.62 10*6/uL Abnormal 4.2 - 5.4 {M/mm3} [facility] Care[facility]; [facility]. Work Phone: WBC (Bld) [#/Vol] 8.3 10*3/uL Normal 4.4 - 11.0 K/mm3 [facility] Care[facility]; [facility]. Work Phone: Laboratory - Microbiology an d Antimicrobial susceptibilityon 11-27-2019 S. agalactiae Org specific cx Ql (Unsp spec) See Note Normal [facility]; [employer] [facility] Work Phone: No Panel Informationon 11-26 ALK P 99 U/L Normal 45 - 117 U/L [facility]; [facility] Work Phone: BUN/CRE 10.8 {RATIO} Normal 10 - 20 {RATIO} [facility]; [facility]. Work Phone: EST GFR - AA 141 mL/min Normal [facility]; [facility]. Work Phone: GAP 6 Normal 5 - 15 [facility]; [facility] Work Phone: RDW SD 39.7 fL Normal 35.1 - 43.9 fL [facility]; [facility] Work Phone: T PROT 6.2 g/dL Abnormal 6.4 - 8.2 g/dL [facility]; [facility] Work Phone: URIC 5.6 mg/dL Normal 2.6 - 6.0 mg/dL [facility]; [facility] Work Phone: Laboratory - Chemistry and C hemistry - challengeon 09-25-2019 Magnesium [Mass/Vol] 74 mg/dL Normal 70 - 140 mg/dL [facility]; [facility]. Work Phone: Laboratory - Hematology and Cell countson 09-25-2019 Erythrocyte distribution width (RBC) [Ratio] 12.7 % Normal 11.6 - 14.6 % [facility]; [facility] Work Phone: Hematocrit (Bld) [Volume fraction] 35.9 % Abnormal 37 - 47 % [facility]; [facility]. Work Phone: Hemoglobin (Bld) [Mass/Vol] 12.1 g/dL Normal 12.0 - 15.0 g/dL [facility] CareBio[facility]; [facility]. Work Phone: MCH (RBC) [Entitic mass] 30.3 pg Normal 27.0 - 32.0 pg [facility] CareBio[facility]; [facility]. Work Phone: MCHC (RBC) [Mass/Vol] 33.7 g/dL Normal 32 - 36 g/dL [facility]; [facility]. Work Phone: MCV (RBC) [Entitic vol] 89.8 fL Normal 81 - 99 fL [facility] CareBio[facility]; [facility]. Work Phone: Platelet mean volume (Bld) [Entitic vol] 10.3 fL Normal 6.2 - 12.0 fL [facility] Care[facility]; [facility]. Work Phone: Platelets (Bld) [#/Vol] 249 10*3/uL Normal 150 - 450 K/mm3 [facility] Care[facility]; [facility]. Work Phone: RBC (Bld) [#/Vol] 4.00 10*6/uL Abnormal 4.2 - 5.4 {M/mm3} [facility] Care[facility]; [facility]. Work Phone: WBC (Bld) [#/Vol] 10.6 10*3/uL Normal 4.4 - 11.0 K/mm3 [facility] Care[facility]; [facility]. Work Phone: No Panel Informationon 09-24 RDW SD 41.3 fL Normal 35.1 - 43.9 fL [facility]; [facility] Work Phone: Laboratory - Blood bankon ABO and Rh group Nom (Bld) Blood group A Rh(D) positive [facility]; [facility] Work Phone: Laboratory - Drug toxicology on 06-05-2019 Amphetamines Ql (U) Negative [facility]; [facility]. Work Phone: Cocaine Ql (U) Negative Normal [facility]. Work Phone: Methadone Ql (U) Negative [facility]. Work Phone: Opiates Ql (U) Negative [facility]; [facility]. Work Phone: Laboratory - Hematology and Cell countson 06-05-2019 Basophils/100 WBC (Bld) 0.6 % Normal 0 - 1 % [facility]; [facility] Work Phone: Eosinophils/100 WBC (Bld) 0.9 % Normal 0 - 5 % [facility]; [facility] Work Phone: Erythrocyte distribution width (RBC) [Ratio] 12.2 % Normal 11.6 - 14.6 % [facility].; [facility] Work Phone: Hematocrit (Bld) [Volume fraction] 39.0 % Normal 37 - 47 % [facility]; [facility] Work Phone: Hemoglobin (Bld) [Mass/Vol] 13.4 g/dL Normal 12.0 - 15.0 g/dL [facility]; [facility] [employer]. Work Phone: Lymphocytes/100 WBC (Bld) 18.4 % Abnormal 19 - 41 % [facility] Care[facility]; [facility]. Work Phone: MCH (RBC) [Entitic mass] 30.3 pg Normal 27.0 - 32.0 pg [facility].; [facility]. Work Phone: MCHC (RBC) [Mass/Vol] 34.4 g/dL Normal 32 - 36 g/dL [facility].; [facility]. Work Phone: MCV (RBC) [Entitic vol] 88.2 fL Normal 81 - 99 fL [facility].; [facility]. Work Phone: Monocytes/100 WBC (Bld) 4.2 % Normal 0 - 10 % [facility].; [facility] [facility]. Work Phone: Neutrophils/100 WBC (Bld) 75.6 % Abnormal 47 - 70 % [facility].; [facility]. Work Phone: Platelet mean volume (Bld) [Entitic vol] 10.5 fL Normal 6.2 - 12.0 fL [facility].; [facility]. Work Phone: Platelets (Bld) [#/Vol] 242 10*3/uL Normal 150 - 450 K/mm3 [facility].; [facility]. Work Phone: RBC (Bld) [#/Vol] 4.42 10*6/uL Normal 4.2 - 5.4 {M/mm3} [facility]. Work Phone: WBC (Bld) [#/Vol] 8.9 10*3/uL Normal 4.4 - 11.0 K/mm3 [facility], [facility]. Work Phone: Laboratory - Microbiology an d Antimicrobial susceptibilityon 06-05-2019 Bacteria identified Cx Nom (U) See Note Normal [facility], [facility]. Work Phone: Laboratory - Specimen inform ationon 06-05-2019 Clarity (U) Sl. Cloudy Normal [facility].; [facility], [facility]. Work Phone: Color (U) Yellow Normal [facility].; [facility]. Work Phone: No Panel Informationon 06-05 Ab SCREEN GEL Negative Normal [facility].; [facility], [facility]. Work Phone: Absolute Lymph 1.63 {X10_3/uL} Normal 0.83 - 4.5 1 {X10_3/uL} [facility].; [facility], [facility]. Work Phone: Absolute Neut 6.7 {X10_3/uL} Normal 2.0 - 7.7 {X10_3/uL} [facility].; [facility], [facility]. Work Phone: BARBITIURATES Negative Normal [facility].; [facility], [facility]. Work Phone: BENZODIAZIPINE Negative Normal [facility].; [facility], [facility]. Work Phone: BILIRUBIN URINE Negative Normal [facility].; [facility], [facility]. Work Phone: ECSTACY Negative Normal [facility].; [facility], [facility]. Work Phone: GLUCOSE, UR Normal Normal [facility].; [facility], [facility]. Work Phone: HEPATITIS C AB Non-Reactive Normal [facility].; [facility], [facility]. Work Phone: HEPB Surface Ag Non-Reactive Normal [facility].; [facility], [facility]. Work Phone: HIV - WCH Non-Reactive Normal [facility].; [facility], [facility]. Work Phone: IM GRAN % 0.300 % Normal 0.0 - 0.9 % [facility]; [facility]. Work Phone: KETONE UR Negative Normal [facility]; [facility], [facility]. Work Phone: LEUK ESTERASE 500 /ul Abnormal [facility]; [facility], [facility]. Work Phone: NITRITE UR Negative Normal [facility]; [facility]. Work Phone: NRBC, FLAGGED 0 % Normal 0 - 5 % [facility]; [facility], [facility]. Work Phone: OCCULT BLOOD-UR Negative Normal [facility]; [facility], [facility]. Work Phone: PCP Negative Normal [facility].; [facility], [facility]. Work Phone: pH UR 7.0 Normal 5.0 - 8.0 [facility]; [facility], [facility]. Work Phone: RPR Non-Reactive Normal [facility]; [facility], [facility]. Work Phone: PROT DIPSTX Negative Normal [facility].; [facility]. Work Phone: RDW SD 39.1 fL Normal 35.1 - 43.9 fL [facility].; [facility]. Work Phone: Rubella IgG 284.3 {IU/mL} Normal [facility].; [facility], [facility]. Work Phone: SP.GR. DIPSTX 1.010 Normal 1.002 - 1.030 [facility].; [facility]. Work Phone: THC Negative Normal [facility].; [facility]. Work Phone: TO BE CONFIRMED Normal [facility].; [facility]. Work Phone: TSH 0.76 {uIU/mL} Normal 0.358 - 3.74 {uIU/mL} [facility].; [facility], [facility]. Work Phone: UROBILI Normal Normal [facility]; [facility]. Work Phone: VISTA UDS PH 5 Normal [facility]; [facility]. Work Phone: Vitamin D 25-OH 30.5 ng/mL Normal 29.95 - 100. 01 ng/mL [facility].; [facility], [facility]. Work Phone: [facility] Cystic Fibrosis Screen See Comments Normal [facility] ([place]) Comment on above: Order Comment: jenny in so did fax to [employer] 10/05/2017 13:39:07 EDT it did go 10/05/2017 13:39:15 EDT als/slr Result Comment: Bucky carson reference lab report scanned to EMR. Performed By: #### C FSCR ####[place] [id number] No Panel Informationon 09-22 Cystic Fibrosis Screen See Comments-See Comments Normal [facility]. Work Phone: VARISon 12-03-[address] Positive [facility] ([place]) Comment on above: Result Comment: This immune status assay detects antibody to Varicella Zost[employer]irus. Interpret results in conjunction with clinical history. Positive: Reactive for antibodies to Varicella IgG. If clinically indicated, order Varicella IGM to rule out recent infection. Equivocal: Equivocal for antibodies to Varicella IgG. Suggest repeat testing in 10-14 days. Negative: Non-reactive for antibodies to Varicella IgG.Sera will be held 4-6 weeks if further testing is required. Performed By: #### R LUCIANO FOX, HBSAB, VARIS ####[place] [id number] HBSABon 12-02-2016 Hep B Surf Ab >1000.0 [facility] ([place]) Comment on above: Result Comment: Anti -HBs Interpretation: 0 to <5.0 mIU/mL Negative Patient is considered to be not immune to infection with HBV. >/= 5.0 and <12.0 mIU/mL Equivocal Unable to determine if anti-HBs is present at levels consistent with immunity. Patient's immune status should be further assessed by considering other clinical information or retesting another sample drawn at a later time. >/= 12.0 mIU/mL Positive Patient is considered to be immune to infection with HBV. It has not been determined what the clinical significance is for values greater than or equal to 12.0 mIU/mL, other than the individual is considered to be immune to HBV infection. Performed By: #### R LUCIANO FOX, HBSAB, VARIS ####[address] [address] RUBEOon 11-25-2016 Rubeola IgG Ab Positive [facility] ([place]) Comment on above: Result Comment: INTE RPRETATION OF RUBEOLA (MEASLES) IGG BY EIA: Negative Nonreactive (Negative) for anti-Rubeola IgG. Presumed non-immune to measles virus. Positive Reactive (Positive) for anti-Rubeola IgG. Presumed immune to measles virus. Equivocal Repeat testing if still indicated. Performed By: #### R UBEO, RUBIS, HBSAB, VARIS ####[place] [id number] RUBISon 11-25-[address] Positive Normal Positive [facility] ([place]) Comment on above: Result Comment: This immune status assay detects IgM and/or IgG antibody to Rubella. Interpret results in conjunction with clinical history. POS: Antibody detected; exposure at undetermined recent or distant time. If clinically indicated, order Rubella IGM to rule out recent infection. NEG: No antibody detected. Performed By: #### R UBEO, RUBIS, HBSAB, VARIS ####[place] [id number] Laboratory - Chemistry and C hemistry - challengeon 12-31-2015 Albumin [Mass/Vol] 4.8 g/dL Normal 3.4 - 4.8 g/dL [facility], [facility].; [facility], [facility] Albumin [Mass/Vol] 1.7 g/dL Abnormal 0.9 - 1.6 [facility], [facility].; [facility], [facility]. ALT [Catalytic activity/Vol] 10 U/L Normal 8 - 35 U/L [facility]; [facility], [facility]. Anion gap [Moles/Vol] 15 mmol/L Normal 10 - 20 mmol/L [facility].; [facility], [facility]. AST [Catalytic activity/Vol] 15 U/L Normal 13 - 39 U/L [facility].; [facility], [facility]. Bilirubin [Mass/Vol] 0.4 mg/dL Normal 0.0 - 1 .5 mg/dL [facility]; [facility], [facility] Calcium [Mass/Vol] 10.2 mg/dL Normal 8.6 - 10. 2 mg/dL [facility]; [facility] Chloride [Moles/Vol] 101 mmol/L Normal 98 - 10 7 mmol/L [facility]; [facility] Cholesterol [Mass/Vol] 182 mg/dL Normal 0 - 200 mg/dL [facility]; [facility] Cholesterol in HDL [Mass or moles/Vol] 52 mg/dL Normal 40 - 60 mg/dL [facility]; [facility] Cholesterol in LDL [Mass/Vol] 112 mg/dL Normal 0 - 129 mg/dL [facility]; [facility] Cholesterol.total/Choles terol in HDL [Mass ratio] 3.5 {ratio} Normal 0.0 - 5.0 [facility]; [facility] CO2 [Moles/Vol] 28.0 mmol/L Normal 21.0 - 31.0 mmol/L [facility]; [facility] Creatinine [Mass/Vol] 0.7 mg/dL Normal 0.6 - 1.2 mg/dL [facility]; [facility]. GFR/1.73 sq M.predicted among blacks MDRD (S/P/Bld) [Vol rate/Area] mL/min/{1.73_m2} Normal 60 - 999 {ML/MINUTE} [facility].; [facility], [facility]. GFR/1.73 sq M.predicted MDRD (S/P/Bld) [Vol rate/Area] mL/min/{1.73_m2} Normal 60 - 999 {ML/MINUTE} [facility].; [facility]. Globulin (S) [Mass/Vol] 2.9 g/dL Normal 1.5 - 3.8 g/ dL [facility]; [facility], [facility]. Glucose [Mass/Vol] 82 mg/dL Normal 74 - 106 mg/dL [facility].; [facility] Lipid 1996 panel Normal [facility]; [facility] Potassium [Moles/Vol] 4.2 mmol/L Normal 3.5 - 5.1 mmol/L [facility]; [facility] Protein [Mass/Vol] 7.7 g/dL Normal 6.4 - 8.3 g/dL [facility]; [facility] Sodium [Moles/Vol] 140 mmol/L Normal 136 - 145 mmol/L [facility]; [facility] Triglyceride [Mass/Vol] 89 mg/dL Normal 0 - 150 mg/d L [facility]; [facility] TSH Qn 0.80 m[IU]/L Normal 0.34 - 5.60 {uIU/ml} [facility]; [facility] Urea nitrogen [Mass/Vol] 10 mg/dL Normal 6 - 20 mg/d L [facility]; [facility] Urea nitrogen/Creatinine [Mass ratio] 14 {ratio} Normal 0 - 30 {ratio} [facility]; [facility] Laboratory - Hematology and Cell countson 12-31-2015 Basophils (Bld) [#/Vol] 0.10 {x10EE3/UL} Normal 0.00 - 0.10 {x10EE3/UL} [facility]; [facility] Basophils/100 WBC (Bld) 1.2 % Normal 0.0 - 2.0 % [facility]; [facility], [facility] CBC panel Auto (Bld) Normal [facility]; [facility] Eosinophils (Bld) [#/Vol] 0.20 {x10EE3/UL} Normal 0.00 - 0.50 {x10EE3/UL} [facility].; [facility] Eosinophils/100 WBC (Bld) 3.8 % Normal 0.0 - 7.0 % [facility].; [facility], [facility] Erythrocyte distribution width (RBC) [Ratio] 12.3 % Normal 12.0 - 15.6 % [facility].; [facility], [facility] Hematocrit (Bld) [Volume fraction] 39.5 % Normal 34.0 - 46.0 % [facility].; [facility], [facility] Hemoglobin (Bld) [Mass/Vol] 14.0 g/dL Normal 12.0 - 16.0 g/dL [facility].; [facility], [facility] Lymphocytes (Bld) [#/Vol] 1.60 {x10EE3/UL} Normal 0.80 - 2.80 {x10EE3/UL} [facility].; [facility], [facility] Lymphocytes/100 WBC (Bld) 29.0 % Normal 20.0 - 45.0 % [facility].; [facility], [facility]. MCH (RBC) [Entitic mass] 29 pg Normal 27 - 33 pg [facility].; [facility], [facility]. MCHC (RBC) [Mass/Vol] 35 {X10_3} Normal 32 - 3 6 {X10_3} [facility].; [facility], [facility]. MCV (RBC) [Entitic vol] 82 fL Normal 80 - 99 fL E [facility].; [facility], [facility] Monocytes (Bld) [#/Vol] 0.30 {x10EE3/UL} Normal 0.20 - 1.00 {x10EE3/UL} [facility], [facility].; [facility], [facility]. Monocytes/100 WBC (Bld) 4.5 % Normal 0.0 - 10.0 % [facility].; [facility] [employer] [facility] [employer] Morphology [place] (Bld) [Interp] N/A Normal [facility] [facility].; [facility], [employer] Neutrophils (Bld) [#/Vol] 3.40 {x10EE3/UL} Normal 1.50 - 7.10 {x10EE3/UL} [facility].; [facility] [employer] [facility] [employer] Neutrophils/100 WBC (Bld) 61.5 % Normal 46.0 - 76.0 % [facility].; [facility] [employer] [facility], [employer] Platelet mean volume (Bld) [Entitic vol] 9.1 fL Normal 6.6 - 10.5 fL [facility] [employer] [facility].; [facility] [employer] [facility] [employer] Platelets (Bld) [#/Vol] 299 {x10EE3/UL} Normal 1 50 - 450 {x10EE3/UL} [facility].; [facility] [employer] [facility] [employer] RBC (Bld) [#/Vol] 4.80 {x_10EE6/UL} Normal 4.10 - 5.30 {x_10EE6/UL} [facility], [employer].; [facility] [employer] [facility] [employer] WBC (Bld) [#/Vol] 5.5 {x_10EE3/UL} Normal 4.5 - 10.8 {x_10EE3/UL} [facility].; [facility] [employer] No Panel Informationon 12-30 AGE 25 {years} Normal [facility] [employer].; [facility] [employer] ALK PHOS 43 U/L Normal 38 - 126 U/L [facility].; [facility] [employer], [employer] CMP with eGFR Normal [facility] [employer].; [place] [employer] [facility] [employer], [employer] MANUAL DIFF N/A Normal [facility].; [facility] [employer] [facility], [employer]. No Panel Informationon 10-16 SKIN TEST INTRADERMAL TB Negative Normal [facility].; [email or web address] [facility] [employer] Laboratory - Urinalysison Glucose Test strip (U) [Mass/Vol] Negative Normal [facility].; [email or web address] [facility] [employer], [employer] Protein Ql (U) Negative Normal [facility].; [facility], [employer]. Vital Signs Date Time Vital Sign Value Performing Clinician Faci lity 01-13-2025 09:17-0400 Body height 168.91 cm Anna Leon RN [facility], [employer].; [facility], [facility]. 01-13-2025 09:170400 Body mass index (BMI) [Ratio] 22.26 kg/m2 Anna Leon RN [facility], [employer].; [facility], [employer] 01-13-2025 09:17-0400 Body surface area Derived from formula 1.73 m2 Anna Leon RN [facility], [employer].; [facility], [employer] 01-13-2025 09:17-0400 Body weight 63.5 kg Anna Leon RN [facility], [employer].; [facility], [employer] 01-13-2025 09:17-0400 Diastolic blood pressure 70 mm[Hg] Anna Leon RN [facility], [employer].; [email or web address] [facility] [employer] [facility] [employer]. Comment on above: Patient Position: Sitting; Cuff Location : Left Arm; Cuff Size: Large 01-13-2025 09:17-0400 Heart rate 79 /min Anna Leon RN [facility] [employer] [facility], [employer].; [email or web address] [facility] [employer] [facility], [employer]. Comment on above: Pattern: Regular 01-13-2025 09:17-0400 Systolic blood pressure 109 mm[Hg] Anna Leon RN [facility] [employer] [facility], [employer].; [email or web address] [facility] [employer] [facility] [employer] Comment on above: Patient Position: Sitting; Cuff Location : Left Arm; Cuff Size: Large 11-09-2023 13:59-0400 Body height 166.37 cm Anna Leon RN [facility], [facility].; [facility], [facility]. 11-09-2023 13:59-0400 Body mass index (BMI) [Ratio] 23.96 kg/m2 Anna Leon RN [facility], [facility].; [facility], [employer] 11-09-2023 13:59-0400 Body surface area Derived from formula 1.74 m2 Anna Leon RN [facility], [facility].; [facility]. 11-09-2023 13:59-0400 Body weight 66.32 kg Anna Leon RN [facility].; [facility]. 11-09-2023 13:59-0400 Diastolic blood pressure 67 mm[Hg] Anna Leon RN [facility].; [facility], [facility]. Comment on above: Patient Position: Sitting; Cuff Location : Left Arm; Cuff Size: Large 11-09-2023 13:59-0400 Heart rate 76 /min Anna Leon RN [facility].; [facility], [facility]. Comment on above: Pattern: Regular 11-09-2023 13:59-0400 Systolic blood pressure 99 mm[Hg] Anna Leon RN [facility], [facility].; [facility], [facility]. Comment on above: Patient Position: Sitting; Cuff Location : Left Arm; Cuff Size: Large 08-25-2023 10:08-0400 Body height 167.[address] Job Alatorre Work Phone: [facility] 08-25-2023 10:08-0400 Body mass index (BMI) [Ratio] 22.4 kg/m2 Dr. Job Alatorre Work Phone: [facility] 08-25-2023 10:08-0400 Body weight 63.[address] Job Alatorre Work Phone: [facility] 08-25-2023 10:08-0400 Diastolic blood pressure 71 mm[Hg] Dr. Job Alatorre Work Phone: [facility] 08-25-2023 10:08-0400 Systolic blood pressure 104 mm[Hg] Dr. Job Alatorre Work Phone: [facility] 04-19-2023 13:15-0500 Body height 167.[address] Job Alatorre Work Phone: [facility] 04-19-2023 13:12-0500 Body mass index (BMI) [Ratio] 22.3 kg/m2 Dr. Job Alatorre Work Phone: [facility] 04-19-2023 13:12-0500 Body weight 62.[address] Job Alatorre Work Phone: [facility] 04-19-2023 13:12-0500 Diastolic blood pressure 75 mm[Hg] Dr. Job Alatorre Work Phone: [facility] 04-19-2023 13:12-0500 Systolic blood pressure 117 mm[Hg] Dr. Job Alatorre Work Phone: [facility] 01-23-2023 10:34-0400 Body height 166.37 cm Natalee Wolf RN [facility], [facility].; [facility], [facility]. 01-23-2023 10:34-0400 Body mass index (BMI) [Ratio] 22.96 kg/m2 Natalee Wolf RN [facility], [facility]. 01-23-2023 10:34-0400 Body surface area Derived from formula 1.71 m2 Natalee Wolf RN [facility], [facility]. 01-23-2023 10:34-0400 Body temperature 98.6 [degF] Natalee Wolf RN [facility], [facility].; [facility], [facility]. Comment on above: Method: Oral 01-23-2023 10:34-0400 Body weight 63.56 kg Natalee Wolf RN [facility], [facility].; [email or web address] [facility] [facility] [employer] 01-23-2023 10:34-0400 Diastolic blood pressure 70 mm[Hg] Natalee Wolf RN [facility], [facility].; [email or web address] [facility] [facility], [employer]. Comment on above: Patient Position: Sitting; Cuff Location : Left Arm; Cuff Size: Standard 01-23-2023 10:34-0400 Heart rate 67 /min Natalee Wolf RN [facility], [facility].; [email or web address] [facility] [facility] Comment on above: Pattern: Regular 01-23-2023 10:34-0400 Inhaled oxygen concentration 21 % Natalee Wolf RN [facility], [facility].; [email or web address] [facility] [employer] [facility] [employer]. Comment on above: Room air 01-23-2023 10:34-0400 SaO2% (BldA) [Mass fraction] 98 % Natalee Wolf RN [facility], [facility].; [email or web address] [facility] [facility] 01-23-2023 10:34-0400 Systolic blood pressure 108 mm[Hg] Natalee Wolf RN [facility], [facility].; [email or web address] [facility] [employer] [facility] [employer]. Comment on above: Patient Position: Sitting; Cuff Location : Left Arm; Cuff Size: Standard 01-10-2022 10:43-0400 Body height 166.37 cm Natalee Wolf RN [facility], [facility].; [email or web address] [facility] [employer] [facility] 01-10-2022 10:43-0400 Body mass index (BMI) [Ratio] 21.63 kg/m2 Natalee Wolf RN [facility].; [facility] [employer] [facility] 01-10-2022 10:43-0400 Body surface area Derived from formula 1.67 m2 Natalee Wolf RN [facility], [facility].; [email or web address] [facility] [employer] [facility] [employer] 01-10-2022 10:43-0400 Body temperature 98.7 [degF] Natalee Wolf RN [facility], [facility].; [employer] [facility] [employer] [facility], [employer]. Comment on above: Method: Oral 01-10-2022 10:43-0400 Body weight 59.88 kg Natalee Wolf RN [facility], [employer].; [facility]. 01-10-2022 10:43-0400 Diastolic blood pressure 61 mm[Hg] Natalee Wolf RN [facility], [employer].; [facility], [employer]. Comment on above: Patient Position: Sitting; Cuff Location : Right Arm; Cuff Size: Standard 01-10-2022 10:43-0400 Heart rate 68 /min Natalee Wolf RN [facility], [employer].; [facility]. Comment on above: Pattern: Regular 01-10-2022 10:43-0400 Inhaled oxygen concentration 21 % Natalee Wolf RN [facility], [employer].; [facility]. Comment on above: Room air 01-10-2022 10:43-0400 SaO2% (BldA) [Mass fraction] 98 % Natalee Wolf RN [facility], [employer].; [facility], [employer]. 01-10-2022 10:43-0400 Systolic blood pressure 95 mm[Hg] Natalee Wolf RN [facility], [employer].; [facility]. Comment on above: Patient Position: Sitting; Cuff Location : Right Arm; Cuff Size: Standard 08-16-2021 12:05-0400 Body temperature 97.9 [degF] Dr. Job Alatorre Work Phone: [facility] [place] Work Phone: 08-16-2021 12:05-0400 Diastolic blood pressure 81 mm[Hg] Dr. Job Alatorre Work Phone: [facility] [place] Work Phone: 08-16-2021 12:05-0400 Heart rate 74 /min Dr. Job Alatorre Work Phone: [facility] [place] Work Phone: 08-16-2021 12:05-0400 Respiratory rate 16 /min Dr. Job Alatorre Work Phone: [facility] [place] Work Phone: 08-16-2021 12:05-0400 Systolic blood pressure 119 mm[Hg] Dr. Job Alatorre Work Phone: [facility] [place] Work Phone: 08-15-2021 04:39-0400 SaO2% (BldA) [Mass fraction] 100 % Dr. Job Alatorre Work Phone: [facility] [place] Work Phone: 08-15-2021 02:54-0400 Body height 167.[address] Job Alatorre Work Phone: [facility] [place] Work Phone: 08-15-2021 02:54-0400 Body mass index (BMI) [Ratio] 25.9 kg/m2 Dr. Job Alatorre Work Phone: [facility] [place] Work Phone: 08-15-2021 02:54-0400 Body weight 72.[address] Job Alatorre Work Phone: [facility] [place] Work Phone: 08-13-2021 13:52-0400 Body mass index (BMI) [Ratio] 26.3 kg/m2 Dr. Job Alatorre Work Phone: [facility] [place] Work Phone: 08-13-2021 13:52-0400 Body weight 73.[address] Job Alatorre Work Phone: [facility] [place] Work Phone: 08-13-2021 13:52-0400 Diastolic blood pressure 89 mm[Hg] Dr. Job Alatorre Work Phone: [facility] [place] Work Phone: 08-13-2021 13:52-0400 Systolic blood pressure 130 mm[Hg] Dr. Job Alatorre Work Phone: [facility] [place] Work Phone: 08-06-2021 10:14-0400 Body height 167.[address] Job Alatorre Work Phone: [facility] [place] Work Phone: 08-06-2021 10:14-0400 Body mass index (BMI) [Ratio] 26.2 kg/m2 Dr. Job Alatorre Work Phone: [facility] [place] Work Phone: 08-06-2021 10:14-0400 Body weight 73.[address] Job Alatorre Work Phone: [facility] [place] Work Phone: 08-06-2021 10:14-0400 Diastolic blood pressure 88 mm[Hg] Dr. Job Alatorre Work Phone: [facility] [place] Work Phone: 08-06-2021 10:14-0400 Systolic blood pressure 122 mm[Hg] Dr. Job Alatorre Work Phone: [facility] [place] Work Phone: 07-30-2021 09:33-0400 Body mass index (BMI) [Ratio] 25.9 kg/m2 Dr. Job Alatorre Work Phone: [facility] [place] Work Phone: 07-30-2021 09:33-0400 Body weight 72.[address] Job Alatorre Work Phone: [facility] [place] Work Phone: 07-30-2021 09:33-0400 Diastolic blood pressure 87 mm[Hg] Dr. Job Alatorre Work Phone: [facility] [place] Work Phone: 07-30-2021 09:33-0400 Systolic blood pressure 116 mm[Hg] Dr. Job Alatorre Work Phone: [facility] [place] Work Phone: 07-23-2021 10:26-0400 Body mass index (BMI) [Ratio] 25.9 kg/m2 Dr. Job Alatorre Work Phone: [facility] [place] Work Phone: 07-23-2021 10:26-0400 Body weight 73.[address] Job Alatorre Work Phone: [facility] [place] Work Phone: 07-23-2021 10:26-0400 Diastolic blood pressure 82 mm[Hg] Dr. Job Alatorre Work Phone: [facility] [place] Work Phone: 07-23-2021 10:26-0400 Systolic blood pressure 120 mm[Hg] Dr. Job Alatorre Work Phone: [facility] [place] Work Phone: 07-09-2021 11:22-0400 Body mass index (BMI) [Ratio] 25.7 kg/m2 Dr. Job Alatorre Work Phone: [facility] [place] Work Phone: 07-09-2021 11:22-0400 Body weight 72.[address] Job Alatorre Work Phone: [facility] [place] Work Phone: 07-09-2021 11:22-0400 Diastolic blood pressure 80 mm[Hg] Dr. Job Alatorre Work Phone: [facility] [place] Work Phone: 07-09-2021 11:22-0400 Systolic blood pressure 120 mm[Hg] Dr. Job Alatorre Work Phone: [facility] [place] Work Phone: 06-23-2021 09:25-0500 Body mass index (BMI) [Ratio] 25.5 kg/m2 Dr. Job Alatorre Work Phone: [facility] [place] Work Phone: 06-23-2021 09:25-0500 Body weight 71.[address] Job Alatorre Work Phone: [facility] [place] Work Phone: 06-23-2021 09:25-0500 Diastolic blood pressure 88 mm[Hg] Dr. Job Alatorre Work Phone: [facility] [place] Work Phone: 06-23-2021 09:25-0500 Systolic blood pressure 118 mm[Hg] Dr. Job Alatorre Work Phone: [facility] [place] Work Phone: 06-09-2021 09:25-0500 Body mass index (BMI) [Ratio] 25.2 kg/m2 Dr. Job Alatorre Work Phone: [facility] [place] Work Phone: 06-09-2021 09:25-0500 Body weight 70.[address] Job Alatorre Work Phone: [facility] [place] Work Phone: 06-09-2021 09:25-0500 Diastolic blood pressure 82 mm[Hg] Dr. Job Alatorre Work Phone: [facility] [place] Work Phone: 06-09-2021 09:25-0500 Systolic blood pressure 128 mm[Hg] Dr. Job Alatorre Work Phone: [facility] [place] Work Phone: 05-20-2021 10:12-0500 Body mass index (BMI) [Ratio] 24.5 kg/m2 Dr. Job Alatorre Work Phone: [facility] [place] Work Phone: 05-20-2021 10:12-0500 Body weight 68.[address] Job Alatorre Work Phone: [facility] [place] Work Phone: 01-27-2022 10:12-0500 Diastolic blood pressure 82 mm[Hg] Dr. Job Alatorre Work Phone: [facility] [place] Work Phone: 05-20-2021 10:12-0500 Systolic blood pressure 112 mm[Hg] Dr. Job Alatorre Work Phone: [facility] [place] Work Phone: 05-06-2021 08:27-0500 Body mass index (BMI) [Ratio] 23.9 kg/m2 Dr. Job Alatorre Work Phone: [facility] [place] Work Phone: 05-06-2021 08:27-0500 Body weight 67.[address] Job Alatorre Work Phone: [facility] [place] Work Phone: 05-06-2021 08:27-0500 Diastolic blood pressure 82 mm[Hg] Dr. Job Alatorre Work Phone: [facility] [place] Work Phone: 05-06-2021 08:27-0500 Systolic blood pressure 110 mm[Hg] Dr. Job Alatorre Work Phone: [facility] [place] Work Phone: 11-27-2020 10:34-0400 Body height 166.37 cm MIKE WELLS [facility] HEALTH SYSTEMGet Real Health [facility]. 11-27-2020 10:34-0400 Body mass index (BMI) [Ratio] 22.45 kg/m2 MIKE GRATE LEONIE [facility].; HEALTH SYSTEMGet Real Health [facility] Center[facility]. 11-27-2020 10:34-0400 Body surface area Derived from formula 1.69 m2 MIKE WELLS RN [facility], [facility].; [employer] [facility], [facility]. 11-27-2020 10:34-0400 Body weight 62.14 kg MIKE WELLS RN [facility].; [employer] [facility] Center[facility]. 11-27-2020 10:34-0400 Diastolic blood pressure 70 mm[Hg] MIKE WELLS RN [facility].; [facility]. Comment on above: Patient Position: Sitting; Cuff Location : Left Arm; Cuff Size: Standard 11-27-2020 10:34-0400 Heart rate 71 /min MIKE WELLS RN [facility].; [facility]. Comment on above: Pattern: Regular 11-27-2020 10:34-0400 Systolic blood pressure 106 mm[Hg] MIKE WELLS RN [facility] D[facility]de [facility].; OloFormer[facility] S[employer]z [facility] CenterBe[facility]. Comment on above: Patient Position: Sitting; Cuff Location : Left Arm; Cuff Size: Standard 09-13-2019 14:24-0400 Body height 166.37 cm Ronald CAMPBELL MD Work Phone: [facility].; [employer] [facility]. 09-13-2019 14:24-0400 Body mass index (BMI) [Ratio] 25.4 kg/m2 Ronald CAMPBELL MD Work Phone: [facility].; [facility]. 09-13-2019 14:24-0400 Body surface area Derived from formula 1.79 m2 Ronald CAMPBELL MD Work Phone: [facility].; [employer] [facility] [employer]. 09-13-2019 14:24-0400 Body weight 70.31 kg Ronald CAMPBELL MD Work Phone: [facility].; [employer] [facility] Sainz [employer]. 09-13-2019 14:24-0400 Diastolic blood pressure 72 mm[Hg] Ronald CAMPBELL MD Work Phone: [facility]Be[facility].; [employer] [facility] [employer]. Comment on above: Patient Position: Sitting; Cuff Location : Left Arm; Cuff Size: Standard 09-13-2019 14:24-0400 Heart rate 73 /min Ronald CAMPBELL MD Work Phone: [employer]; [employer]. Comment on above: Pattern: Regular 09-13-2019 14:24-0400 Systolic blood pressure 110 mm[Hg] Ronald CAMPBELL MD Work Phone: [employer]; [employer]. Comment on above: Patient Position: Sitting; Cuff Location : Left Arm; Cuff Size: Standard 09-25-2018 14:07-0400 Body height 166.37 cm Ronald CAMPBELL MD Work Phone: [employer]; [employer]. 09-25-2018 14:07-0400 Body mass index (BMI) [Ratio] 24.42 kg/m2 Ronald CAMPBELL MD Work Phone: [employer]; [employer]. 09-25-2018 14:07-0400 Body surface area Derived from formula 1.76 m2 Ronald CAMPBELL MD Work Phone: [employer]; [employer]. 09-25-2018 14:07-0400 Body weight 67.59 kg Ronald CAMPBELL MD Work Phone: [employer]; [employer]. 09-25-2018 14:07-0400 Diastolic blood pressure 78 mm[Hg] Ronald CAMPBELL MD Work Phone: [employer]; [employer]. Comment on above: Patient Position: Sitting; Cuff Location : Left Arm; Cuff Size: Standard 09-25-2018 14:07-0400 Heart rate 79 /min Ronald CAMPBELL MD Work Phone: [facility] Center[facility].; OloFormerly [facility] Sainz [facility] CenterBe[facility]. Comment on above: Pattern: Regular 09-25-2018 14:07-0400 Systolic blood pressure 115 mm[Hg] Ronald CAMPBELL MD Work Phone: [facility] S[employer]z [facility] CenterPixia; [employer] [facility] Dónde [facility] CenterPixia Comment on above: Patient Position: Sitting; Cuff Location : Left Arm; Cuff Size: Standard 05-28-2018 14:34-0500 Body height 166.37 cm MIKE WELLS RN [facility], [employer].; [facility] CenterBe[facility] Power. 05-28-2018 14:34-0500 Body mass index (BMI) [Ratio] 24.55 kg/m2 MIKE WELLS RN [facility] CenterBe[facility].; [facility] CenterBe[facility]. 05-28-2018 14:34-0500 Body surface area Derived from formula 1.76 m2 MIKE WELLS RN [facility], [employer].; [facility] Sainz [facility] CenterBe[facility] Power. 05-28-2018 14:34-0500 Body temperature 98.2 [degF] MIKE WELLS RN [facility] [employer] [facility] CenterBe[facility].; [employer] [facility] D[facility]de [facility] CenterBe[facility] Power. Comment on above: Method: Oral 05-28-2018 14:34-0500 Body weight 67.95 kg MIKE WELLS RN [facility] [employer] [facility], [employer].; [facility] S[employer] CenterBe[facility] Power. 05-28-2018 14:34-0500 Diastolic blood pressure 78 mm[Hg] MIKE WELLS RN [facility] D[facility], [employer].; [facility] S[employer]z [facility] CenterBe[facility] Power. Comment on above: Patient Position: Sitting; Cuff Location : Right Arm; Cuff Size: Standard 05-28-2018 14:34-0500 Heart rate 78 /min MIKE WELLS RN [facility] D[facility], [employer].; [place] [facility] D[facility] CenterBe[facility]. Comment on above: Pattern: Regular 05-28-2018 14:34-0500 Systolic blood pressure 118 mm[Hg] MIKE WELLS RN [facility], [employer].; [place] [facility] S[employer] [facility] CenterBe[facility] Power. Comment on above: Patient Position: Sitting; Cuff Location : Right Arm; Cuff Size: Standard 09-04-2017 13:17-0400 Body height 166.37 cm [facility] [employer] SainzTracelytics [facility] CenterBeacon Power.; TRIRIGA [facility], Inc. 09-04-2017 13:17-0400 Body mass index (BMI) [Ratio] 23.93 kg/m2 [facility], Inc.; O[employer]EK [facility], Inc. 09-04-2017 13:17-0400 Body surface area Derived from formula 1.74 m2 [facility], Inc.; [employer], [employer] 09-04-2017 13:17-0400 Body weight 66.23 kg [facility]bilt[facility]ac[facility] CenterBe[facility] Power.; O[employer], Inc. 09-04-2017 13:17-0400 Diastolic blood pressure 76 mm[Hg] [facility] Triductor [facility] CenterDiBcom Inc.; [employer], Inc. Comment on above: Patient Position: Sitting; Cuff Location : Left Arm; Cuff Size: Standard 09-04-2017 13:17-0400 Heart rate 89 /min [facility] Tr[facility] CenterBeacon Power.; OloEK [facility], Inc. Comment on above: Pattern: Regular 09-04-2017 13:17-0400 Systolic blood pressure 114 mm[Hg] [facility] Tr[facility] CenterBe[facility] Power.; [employer], [employer]. Comment on above: Patient Position: Sitting; Cuff Location : Left Arm; Cuff Size: Standard 11-14-2016 13:35-0400 Body height 166.37 cm [facility] Dónde [facility] CenterDiBcom Inc.; [employer], Inc. 11-14-2016 13:35-0400 Body mass index (BMI) [Ratio] 24.09 kg/m2 [facility], Inc.; [employer], Inc. 11-14-2016 13:35-0400 Body surface area Derived from formula 1.75 m2 [facility] Tr[facility]uctor [facility] CenterBeacon Power.; [place] [facility], [employer]. 11-14-2016 13:35-0400 Body weight 66.68 kg Tr[facility] CenterBeacon Power.; [facility] Zyncro [facility] CenterDiBcom Inc. 11-14-2016 13:35-0400 Diastolic blood pressure 66 mm[Hg] Tr[facility], Inc.; [facility], Inc. Comment on above: Patient Position: Sitting; Cuff Location : Left Arm; Cuff Size: Standard 11-14-2016 13:35-0400 Heart rate 78 /min Tr[facility], Inc.; [facility] Sainz [facility], Inc. Comment on above: Pattern: Regular 11-14-2016 13:35-0400 Systolic blood pressure 100 mm[Hg] Trisha [facility] Zync[facility] CenterDiBcom Inc.; [facility] Sainz Zyncro [facility] CenterDiBcom Inc. Comment on above: Patient Position: Sitting; Cuff Location : Left Arm; Cuff Size: Standard 12-31-2015 10:18-0400 Body height 167.64 cm THANH PERLA MD Work Phone: [facility] HospitalT[facility] de Ideas.; [facility] [employer]. 12-31-2015 10:18-0400 Body mass index (BMI) [Ratio] 23.73 kg/m2 THANH PERLA MD Work Phone: [facility].; [facility] CenterBeacon Power. 12-31-2015 10:18-0400 Body surface area Derived from formula 1.75 m2 THANH PERLA MD Work Phone: Triductor [facility] CenterBeacon Power.; [facility] Sainz [employer]. 12-31-2015 10:18-0400 Body weight 66.68 kg THANH PERLA MD Work Phone: [facility] Hospital[facility].; [facility] [employer], [employer] 12-31-2015 10:18-0400 Diastolic blood pressure 85 mm[Hg] THANH PERLA MD Work Phone: [place] [employer].; [facility] Dónde [facility] CenterBeacon Power. Comment on above: Patient Position: Sitting; Cuff Location : Left Arm; Cuff Size: Standard 12-31-2015 10:18-0400 Heart rate 88 /min THANH PERLA MD Work Phone: [facility]ac[facility] CenterBeacon Power.; [facility] S[employer]z [employer]. Comment on above: Pattern: Regular 12-31-2015 10:18-0400 Systolic blood pressure 122 mm[Hg] THANH PERLA MD Work Phone: [facility] CenterBeacon Power.; [facility] [employer]. Comment on above: Patient Position: Sitting; Cuff Location : Left Arm; Cuff Size: Standard 11-12-2015 14:35-0400 Body height 162.56 cm Natalee Wolf RN [facility], [employer].; [email or web address] [facility], [employer]. 11-12-2015 14:35-0400 Body mass index (BMI) [Ratio] 25.47 kg/m2 Natalee Wolf RN [facility], [employer].; [email or web address] [facility], Inc. 11-12-2015 14:35-0400 Body surface area Derived from formula 1.72 m2 Natalee Wolf RN [facility], [employer].; [email or web address] [facility], Inc. 11-12-2015 14:35-0400 Body temperature 98.6 [degF] Natalee Wolf RN [facility] CenterBeacon Power.; [employer] [facility] Dónde [facility], Inc. Comment on above: Method: Oral 11-12-2015 14:35-0400 Body weight 67.31 kg Natalee Wolf RN [facility], Inc.; [email or web address] [facility] [employer], Inc. 11-12-2015 14:35-0400 Diastolic blood pressure 79 mm[Hg] Natalee Wolf RN [facility], [employer].; Press[employer] [facility] [employer], Inc. Comment on above: Patient Position: Sitting; Cuff Location : Left Arm; Cuff Size: Standard 11-12-2015 14:35-0400 Heart rate 73 /min Natalee Wolf RN [facility], [employer].; Press[employer] [facility] TamaracBeacon [employer]. Comment on above: Pattern: Regular 11-12-2015 14:35-0400 Systolic blood pressure 123 mm[Hg] Natalee Wolf RN [facility], [employer].; [facility] CenterBeacon Power. Comment on above: Patient Position: Sitting; Cuff Location : Left Arm; Cuff Size: Standard 10-16-2014 13:46-0400 Body height 163.83 cm Anna Leon RN [facility], Inc.; [email or web address] [facility], Inc. 10-16-2014 13:46-0400 Body mass index (BMI) [Ratio] 22.98 kg/m2 Anna Leon RN [facility], Inc.; [facility], Inc. 10-16-2014 13:46-0400 Body surface area Derived from formula 1.67 m2 Anna Leon RN [facility], Inc.; [facility], [employer]. 10-16-2014 13:46-0400 Body weight 61.69 kg Anna Leon RN [facility], [employer].; [facility], Inc. 10-16-2014 13:46-0400 Diastolic blood pressure 70 mm[Hg] Anna Leon RN [facility], [employer].; [email or web address] [facility], Inc. Comment on above: Patient Position: Sitting; Cuff Location : Left Arm; Cuff Size: Large 10-16-2014 13:46-0400 Heart rate 69 /min Anna Leon RN [facility], Inc.; [email or web address] [facility], Inc. Comment on above: Pattern: Regular 10-16-2014 13:46-0400 Systolic blood pressure 108 mm[Hg] Anna Leon RN [facility], [employer].; [email or web address] [facility], [employer]. Comment on above: Patient Position: Sitting; Cuff Location : Left Arm; Cuff Size: Large 11-01-2013 15:07-0400 Body height 163.83 cm Anna Leon RN [facility], Inc.; [email or web address] [facility], Inc. 11-01-2013 15:07-0400 Body mass index (BMI) [Ratio] 24.93 kg/m2 Anna Leon RN [facility], Inc.; [facility], Inc. 11-01-2013 15:07-0400 Body surface area Derived from formula 1.73 m2 Anna Leon RN [facility], Inc.; [facility], Inc. 11-01-2013 15:07-0400 Body weight 66.91 kg Anna Leon RN [facility], Inc.; [facility], Inc. 11-01-2013 15:07-0400 Diastolic blood pressure 83 mm[Hg] Anna Leon RN [facility], Inc.; [facility], Inc. Comment on above: Patient Position: Sitting; Cuff Location : Left Arm; Cuff Size: Large 11-01-2013 15:07-0400 Heart rate 82 /min Anna Leon RN [facility], [employer].; [facility], Inc. Comment on above: Pattern: Regular 11-01-2013 15:07-0400 Systolic blood pressure 125 mm[Hg] Anna Leon RN [facility], [facility].; [facility], [employer]. Comment on above: Patient Position: Sitting; Cuff Location : Left Arm; Cuff Size: Large 04-12-2012 13:55-0500 Body height 163.83 cm Ronald CAMPBELL MD Work Phone: [facility].; [facility], Inc. 04-12-2012 13:55-0500 Body mass index (BMI) [Percentile] Per age and sex 79 % Ronald CAMPBELL MD Work Phone: [facility] CenterBeacon Power.; [email or web address] [facility], Inc. 04-12-2012 13:55-0500 Body mass index (BMI) [Ratio] 24.93 kg/m2 Ronald CAMPBELL MD Work Phone: [facility] CenterBeacon Power.; [facility], Inc. 04-12-2012 13:55-0500 Body surface area Derived from formula 1.73 m2 Ronald CAMPBELL MD Work Phone: [facility] CenterBe[facility] Power.; [employer] [facility] CenterBeacon Power. 04-12-2012 13:55-0500 Body weight 66.91 kg Ronald CAMPBELL MD Work Phone: [facility] CenterBe[facility] Power.; Pressable [facility] Dónde [facility] CenterBe[facility] Power. 04-12-2012 13:55-0500 Diastolic blood pressure 75 mm[Hg] Ronald CAMPBELL MD Work Phone: [facility] HospitalTorneo de Ideas.; Press[employer] [facility] [employer]. Comment on above: Patient Position: Sitting; Cuff Location : Left Arm; Cuff Size: Standard 04-12-2012 13:55-0500 Heart rate 67 /min Ronald CAMPBELL MD Work Phone: [facility] CenterBeacon Power.; [employer] [facility] [employer]. Comment on above: Pattern: Regular 04-12-2012 13:55-0500 Systolic blood pressure 117 mm[Hg] Ronald CAMPBELL MD Work Phone: [facility] [facility].; [employer] [facility]. Comment on above: Patient Position: Sitting; Cuff Location : Left Arm; Cuff Size: Standard 10-21-2011 13:57-0400 Body height 163.83 cm Anna Leon RN [facility].; [email or web address] [facility]. 10-21-2011 13:57-0400 Body mass index (BMI) [Percentile] Per age and sex 74 % Anna Leon [facility].; [email or web address] [facility]. 10-21-2011 13:57-0400 Body mass index (BMI) [Ratio] 24 kg/m2 Anna Leon RN [facility].; [facility], [employer]. 10-21-2011 13:57-0400 Body surface area Derived from formula 1.7 m2 Anna Leon RN [facility], [employer].; [facility]. 10-21-2011 13:57-0400 Body weight 64.41 kg Anna Leon RN [facility], Inc.; [facility], Inc. 10-21-2011 13:57-0400 Diastolic blood pressure 66 mm[Hg] Anna Leon RN [facility], Inc.; [facility], Inc. Comment on above: Patient Position: Sitting; Cuff Location : Left Arm; Cuff Size: Large 10-21-2011 13:57-0400 Heart rate 73 /min Anna Leon RN [facility], [employer].; [email or web address] [facility], Inc. Comment on above: Pattern: Regular 10-21-2011 13:57-0400 Systolic blood pressure 108 mm[Hg] Anna Leon RN [facility] [facility].; [employer] [facility], Inc. Comment on above: Patient Position: Sitting; Cuff Location : Left Arm; Cuff Size: Large 08-03-2010 15:40-0400 Body weight 62.14 kg Anna Leon RN [facility] [employer] [facility] [employer].; [facility], Inc. 08-03-2010 15:40-0400 Diastolic blood pressure 68 mm[Hg] Anna Leon RN [facility] [facility].; [facility], Inc. Comment on above: Patient Position: Sitting; Cuff Location : Left Arm; Cuff Size: Large 08-03-2010 15:40-0400 Heart rate 65 /min Anna Leon RN [facility] [employer] [facility] [employer].; [employer] [facility], Inc. Comment on above: Pattern: Regular 08-03-2010 15:40-0400 Systolic blood pressure 108 mm[Hg] Anna Leon RN [facility].; [employer] [facility], Inc. Comment on above: Patient Position: Sitting; Cuff Location : Left Arm; Cuff Size: Large 06-21-2010 15:23-0500 Body temperature 98.1 [degF] Natalee Wolf RN [facility].; [employer] [facility] [place], Inc. Comment on above: Method: Oral 06-21-2010 15:23-0500 Body weight 61.24 kg Natalee Wolf RN [facility].; [facility] [facility]. 06-21-2010 15:23-0500 Diastolic blood pressure 69 mm[Hg] Natalee Wolf RN [employer] [facility].; [employer] [facility] [employer]. Comment on above: Patient Position: Sitting; Cuff Location : Left Arm; Cuff Size: Standard 06-21-2010 15:23-0500 Heart rate 67 /min Natalee Wolf RN [facility].; [employer]. Comment on above: Pattern: Regular 06-21-2010 15:23-0500 Systolic blood pressure 106 mm[Hg] Natalee Wolf RN [facility] [employer].; [employer] [facility] [employer]. Comment on above: Patient Position: Sitting; Cuff Location : Left Arm; Cuff Size: Standard Encounters Encounter Date Encounter Type Care Provider Facility Start: 01-13-2025 End: 01-13-2025 Patient encounter procedure JOB ALATORRE MD Work Phone: [employer]; [employer]. Start: 01-13-2025 End: 01-13-2025 Periodic preventive med est patient 18-39 yrs R OMAYRA CAMPBELL MD Work Phone: [facility] [employer] [facility]. Start: 05-27-2024 End: 05-27-2024 ambulatory Dolores Fernandes MILL CRANE OPERATOR Facility:[facility] Start: 05-27-2024 End: 05-27-2024 ambulatory Dolores Fernandes MILL CRANE OPERATOR Facility:[facility] Start: 04-29-2024 End: 04-29-2024 ambulatory Opal Rose MILL CRANE OPERATOR Facility:[facility] Start: 04-14-2024 ambulatory Trisha Childs Faci lity:[facility] Start: 04-14-2024 End: 04-16-2024 Evaluation and management of inpatient Trisha Childs Facility:[facility] Start: 04-11-2024 End: 04-11-2024 ambulatory Malina Merrill Facility:[facility] Start: 04-04-2024 End: 04-04-2024 ambulatory Job Alatorre Facility:[facility] Start: 03-28-2024 End: 03-28-2024 ambulatory Job Alatorre Facility:[facility] Start: 03-19-2024 End: 03-19-2024 ambulatory Abena Grande Facility:[facility] Start: 03-13-2024 End: 03-13-2024 ambulatory Abena Grande Facility:[facility] Start: 03-13-2024 End: 03-13-2024 ambulatory Abena Harjinder Facility:[facility] Start: 03-07-2024 End: 03-07-2024 ambulatory Malinajohanna Somersdyllan Olivo Facility:[facility] Start: 02-21-2024 End: 02-21-2024 ambulatory Abena Grande Facility:[facility] Start: 02-07-2024 End: 02-07-2024 ambulatory Abena Grande Facility:[facility] Start: 01-24-2024 End: 01-24-2024 ambulatory Trisha Hurstfelipeluís Facility:[facility] Start: 01-19-2024 End: 01-19-2024 ambulatory Malinaronnie Mccullough Geovani Facility:[facility] Start: 12-18-2023 End: 12-18-2023 ambulatory Malina Merrill Facility:[facility] Start: 11-23-2023 End: 11-23-2023 ambulatory Trisha Childs Facility:[facility] Start: 11-23-2023 End: 11-23-2023 ambulatory Trisha Childs Facility:[facility] Start: 11-09-2023 End: 11-09-2023 Patient encounter procedure JOB ALATORRE MD Work Phone: [facility].; [facility] Start: 11-09-2023 End: 11-09-2023 Periodic preventive med est patient 18-39 yrs Ronald CAMPBELL MD Work Phone: [facility]. Start: 10-25-2023 End: 10-25-2023 ambulatory Abena Grande Facility:[facility] Start: 08-25-2023 End: 08-25-[address] Job Alatorre Work Phone: [facility] Work Phone: Start: 08-25-2023 End: 08-25-[address] [facility]: Start: 08-25-2023 End: 08-25-[address] Job Alatorre Work Phone: [facility] Work Phone: Start: 05-09-2023 End: 05-09-[address] Job Alatorre Work Phone: [facility] Work Phone: Start: 05-09-2023 End: 05-09-[address] [facility]: Start: 05-02-2023 End: 05-02-[address] Job Alatorre Work Phone: [facility] Work Phone: Start: 05-02-2023 End: 05-02-[address] [facility] Alatorre [facility]: Start: 04-23-2023 End: 04-23-[address] Job Alatorre Work Phone: [facility] Work Phone: Start: 04-23-2023 End: 04-23-[address] [facility] Alatorre [facility]: Start: 04-21-2023 End: 04-21-[address] Job Alatorre Work Phone: [facility] Work Phone: Start: 04-21-2023 End: 04-21-[address] [facility] Alatorre [facility]: Start: 04-19-2023 End: 04-19-[address] Job Alatorre Work Phone: [facility] Work Phone: Start: 04-19-2023 End: 04-19-[address] Job Alatorre Work Phone: [facility] Work Phone: Start: 01-23-2023 End: 01-23-2023 Patient encounter status JOB ALATORRE MD Work Phone: [facility]; [facility] Start: 01-23-2023 End: 01-23-2023 Periodic preventive med est patient 18-39 yrs Ronald CAMPBELL MD Work Phone: [facility] Start: 01-10-2022 End: 01-10-2022 Patient encounter procedure Ronald CAMPBELL MD Work Phone: [facility]; [facility]. Start: 01-10-2022 End: 01-10-2022 Periodic preventive med est patient 18-39 yrs Ronald CAMPBELL MD Work Phone: [facility] Start: 08-16-2021 Non-patient / Non-visit Dr. Yanni Alatorre Work Phone: [facility] Start: 08-15-2021 Non-patient / Non-visit Dr. Yanni Alatorre Work Phone: [facility] Start: 08-15-2021 End: 08-16-2021 Evaluation and management of inpatient Dr. Job Alatorre Work Phone: [facility] Start: 08-13-2021 End: 08-13-[address] Job Alatorre Work Phone: [facility] Start: 08-06-2021 End: 08-06-[address] Job Alatorre Work Phone: [facility] Start: 08-06-2021 End: 08-06-[address] Job Alatorre Work Phone: [facility] Start: 07-30-2021 End: 07-30-[address] Job Alatorre Work Phone: [facility] Start: 07-26-2021 End: 07-26-[address] [facility]ator[facility] Start: 07-23-2021 End: 07-23-[address] Job Alatorre Work Phone: [facility] Start: 07-09-2021 End: 07-09-[address] Job Alatorre Work Phone: [facility] Start: 06-23-2021 End: 06-23-[address] Job Alatorre Work Phone: [facility] Start: 06-09-2021 End: 06-09-[address] Job Alatorre Work Phone: [facility] Start: 05-20-2021 End: 05-20-[address] [facility] Alatorre [facility] Start: 05-06-2021 End: 05-06-[address] Job Alatorre Work Phone: [facility] Start: 11-27-2020 End: 11-27-2020 Patient encounter status Ronald CAMPBELL MD Work Phone: [employer]; [employer] Start: 11-27-2020 End: 11-27-2020 Periodic preventive med est patient 18-39 yrs Ronald CAMPBELL MD Work Phone: [facility] [employer] Start: 09-27-2019 End: 09-27-2019 Injection/immunization only Ronald CAMPBELL MD Work Phone: [facility] [employer] [facility] Start: 09-13-2019 End: 09-13-2019 Periodic preventive med est patient 18-39 yrs Ronald CAMPBELL MD Work Phone: [facility] [employer] [facility] [employer]. Start: 09-13-2019 End: 09-13-2019 Physical examination JOB ALATORRE MD Work Phone: [employer]; [employer] Start: 09-25-2018 End: 09-25-2018 Periodic preventive med est patient 18-39 yrs Ronald CAMPBELL MD Work Phone: [facility] [employer] [facility] Start: 09-25-2018 End: 09-25-2018 Physical examination Ronald CAMPBELL MD Work Phone: [employer]; [employer] Start: 05-28-2018 End: 05-28-2018 Office outpatient visit 15 minutes Ronald CAMPBELL MD Work Phone: [facility] [employer] Start: 09-22-2017 End: 09-23-2017 Dewayne CAMPBELL Facility:[facility] Start: 09-21-2017 End: 09-21-2017 Lab Only Ronald CAMPBELL MD Work Phone: [facility] [employer] [facility] Start: 09-04-2017 End: 09-04-2017 Patient encounter procedure Ronald CAMPBELL MD Work Phone: [facility] [employer]; [facility] [place] [employer] [facility] Start: 09-04-2017 End: 09-04-2017 Periodic preventive med est patient 18-39 yrs Ronald CAMPBELL MD Work Phone: [facility] [employer] Start: 11-14-2016 End: 11-14-2016 Patient encounter status Ronald CAMPBELL MD Work Phone: [facility] [employer]; [place] [employer] [facility] [employer] Start: 11-14-2016 End: 11-14-2016 Periodic preventive med est patient 18-39 yrs Ronald CAMPBELL MD Work Phone: [facility] [employer] [facility] Start: 01-04-2016 End: 01-04-2016 Patient encounter procedure Ronald CAMPBELL MD Work Phone: [facility] [employer] [facility] Start: 01-01-2016 End: 01-01-2016 Nutrition therapy Ronald CAMPBELL MD Work Phone: [facility] [employer]. Start: 12-31-2015 End: 12-31-2015 Procedure Order Ronald CAMPBELL MD Work Phone: [facility] [employer] Start: 12-31-2015 End: 12-31-2015 Office outpatient visit 15 minutes Ronald CAMPBELL MD Work Phone: [facility] [employer] Start: 11-12-2015 End: 11-12-2015 Patient encounter status Ronald CAMPBELL MD Work Phone: [facility]; [facility] [employer]. Start: 11-12-2015 End: 11-12-2015 Periodic preventive med est patient 18-39 yrs Ronald CAMPBELL MD Work Phone: [facility]. Start: 10-16-2014 End: 10-16-2014 Periodic preventive med est patient 18-39 yrs Ronald CAMPBELL MD Work Phone: [facility]. Start: 10-16-2014 End: 10-16-2014 Routine general medical examination at a health care facility Ronald CAMPBELL MD Work Phone: [employer]; [employer]. Start: 11-01-2013 End: 11-01-2013 Patient encounter procedure Ronald CAMPBELL MD Work Phone: [facility] Start: 03-18-2013 End: 03-18-2013 Medication Refill/Order Ronald CAMPBELL MD Work Phone: [facility] [employer]. Start: 04-12-2012 End: 04-12-2012 Patient encounter procedure Ronald CAMPBELL MD Work Phone: [employer] [facility] [employer]. Start: 10-21-2011 End: 10-21-2011 Examination of eyes and vision Ronald CAMPBELL MD Work Phone: [employer]; [employer]. Start: 10-21-2011 End: 10-21-2011 Physical examination Ronald CAMPBELL MD Work Phone: [place] [employer] [facility] [employer]. Start: 10-21-2011 End: 10-21-2011 Routine general medical examination at a health care facility Ronald CAMPBELL MD Work Phone: [employer]; [employer]. Start: 08-07-2010 End: 08-07-2010 Results Review Ronald CAMPBELL MD Work Phone: [place] [employer] [facility] [employer]. Start: 08-03-2010 End: 08-03-2010 Patient encounter procedure Ronald CAMPBELL MD Work Phone: [facility] Start: 06-23-2010 End: 06-23-2010 Results Review Ronald CAMPBELL MD Work Phone: [facility] Start: 06-21-2010 End: 06-21-2010 Patient encounter procedure Ronald CAMPBELL MD Work Phone: [facility] Start: 06-21-2010 End: 06-21-2010 Historical Summary Ronald CAMPBELL MD Work Phone: [facility] Procedures Date Procedure Procedure Detail Performing Clinician Start: 08-25-[address] Laverne Alatorre Work Phone: Start: 04-19-[address] Laverne Alatorre Work Phone: Start: 08-15-2021 End: 08-15-[address] Job Alatorre Work Phone: Start: 08-06-2021 Ultrasound scan for growth Dr. Job Alatorre Work Phone: Start: 07-23-2021 Group B Streptococcu s Culture Dr. Job Alatorre Work Phone: Start: 11-27-2020 End: 11-27-2020 Dischrg meds reconciled w/current med list JOB ALATORRE MD Work Phone: Start: 11-27-2020 End: 11-27-2020 Urinary Incontinence JOB ALATORRE MD Work Phone: Comment on above: Negative. Start: 12-05-2019 Antibody screen Ronald MURPHY MD Work Phone: Start: 09-27-2019 End: 09-27-2019 Adacel JOB ALATORRE MD Work Phone: Start: 09-25-2018 End: 09-25-2018 Dischrg meds reconciled w/current med list JOB ALATORRE MD Work Phone: Start: 05-28-2018 End: 05-28-2018 Dischrg meds reconciled w/current med list Ronald CAMPEBLL MD Work Phone: Start: 04-27-2017 End: 04-27-2017 Breast Exam JOB ALATORRE MD Work Phone: Start: 12-31-2015 End: 01-04-2016 Complete tthrc echo congenital cardiac anomaly THANH PERLA MD Work Phone: Start: 12-31-2015 End: 12-31-2015 Ecg routine ecg w/least 12 lds w/i&r THANH PERLA MD Work Phone: Start: 07-23-2010 End: 07-23-2010 30 day event monitor--sinus tach THANH PERLA MD Work Phone: Start: 06-21-2010 End: 08-07-2010 Xtrnl pt activated ecg rec dwnld 30 days Ronald CAMPBELL MD Work Phone: Comment on above: Please run 1 month t est Microscopic examinat ion of cervical Papanicolaou smear JOB ALATORRE MD Work Phone: Comment on above: Per [employer]SEM[employer]ER. Normal. Microscopic examinat ion of cervical Papanicolaou smear JOB ALATORRE MD Work Phone: Comment on above: Per [employer]ER. Normal. Tonsillectomy JOB ALATORRE MD Work Phone: Comment on above: and adnoidectomy Plan of Treatment Date Care Activity Detail Author Start: 09-28-2017 Cftr gene analysis common variants CFTR GENE COM VARIANTS (01522) Start: 28-Sep-2017 12:59-04:00 Request Comments: Please run the standard CF screening panel on this sample [facility]. Comment on above: Please run the stand nichole CF screening panel on this sample Start: 09-04-2017 Urnls dip stick/tabl et rgnt non-auto w/o micrscp U/A W/O MICROSCOPY (IN OFFICE) ([id number]) Start: 04-Sep-2017 13:29-04:00 Request [facility]; [facility] Start: 12-31-2015 Patient Education SYNCOPE Mulu cation: Collapse Start: 31-Dec-2015 Instruction Type: Patient Education [facility] [employer]; [facility] [place] Start: 10-16-2014 Antibody varicella-zoster VARICELLA-ZOSTER ANTBODY ([id number]) Start: 16-Oct-2014 14:07-04:00 Request [facility] [employer]; [facility] [employer]. Start: 10-16-2014 Hepatitis b surf antibody hbsab HEPATITIS B SURFACE ANTIBODY ([id number]) Start: 16-Oct-2014 14:06-04:00 Request [employer]; [facility] [employer] Start: 10-16-2014 Antibody rubeola RUBEOLA ANTIB GO ([id number]) Start: 16-Oct-2014 14:06-04:00 Request [employer]; [facility] [employer]. Start: 10-16-2014 Antibody rubella RUBELLA ANTIB GO ([id number]) Start: 16-Oct-2014 14:06-04:00 Request [facility] [employer]; [facility] Start: 10-16-2014 Drug screen, qualitate/multi DRUG SCREEN ([id number]) Start: 16-Oct-2014 14:02-04:00 Request [employer]; [facility]. Start: 10-16-2014 Unclassified biologics TB SKIN TEST INTRADERMAL (03701) - for nursing to document administration Start: 16-Oct-2014 Intent [employer]; [employer] [facility] [employer]. Start: 10-21-2011 End: 10-21-2011 Screening test visual acuity quantitative bilat VISUAL ACUITY SCREEN (63719) Date: 21-Oct-2011 [employer]; [employer]. Start: 08-03-2010 Complete tthrc echo congenital cardiac anomaly CARDIAC ECHO ([id number]) Start: 03-Aug-2010 Intent [employer]; [employer] [facility] [employer]. Start: 06-21-2010 Thyroid horm uptk/thyroid hormone binding ratio T-3 RESIN UPTAKE (T3RU) ([id number]) Start: 21-Jun-2010 16:16-05:00 Request [employer]; [employer] [facility] [employer]. Start: 06-21-2010 Assay of thyroxine total TT4 ( THYROXINE TOTAL) ([id number]) Start: 21-Jun-2010 16:16-05:00 Request [employer]; [employer] [facility] [employer]. Start: 06-21-2010 Assay of thyroid stimulating hormone tsh TSH (THYROID STIMULATING HORMONE) ([id number]) Start: 21-Jun-2010 16:15-05:00 Request [employer]; [employer] [facility] [employer]. Start: 06-21-2010 Comprehensive metabo lic panel METABOLIC PANEL, COMPREHENSIVE ([id number]) Start: 21-Jun-2010 16:15-05:00 Request [employer]; [employer] [facility] [employer]. Patient Education After a Vaginal [facility] Work Phone: Patient referral [facility] Work Phone: Immunizations Immunization Date Immunization Notes Care Provider Ramya bautista 02-27-2023 influenza, injectabl e, quadrivalent, preservative free Dr. Job Alatorre Work Phone: [facility] 03-10-2022 influenza, injectabl e, quadrivalent, preservative free Dr. Job Alatorre Work Phone: [facility] 01-10-2022 influenza virus vacc ine, unspecified formulation Ronald CAMPBELL MD Work Phone: [facility].; [employer] [facility]. Comment on above: gets at work 05-20-2021 tetanus toxoid, redu renetta diphtheria toxoid, and acellular pertussis vaccine, adsorbed Dr. Job Alatorre Work Phone: [facility] 05-20-2021 diphtheria, tetanus toxoids and acellular pertussis vaccine, unspecified formulation Dr. Job Alatorre Work Phone: [facility] Work Phone: 01-28-2021 influenza, injectabl e, quadrivalent, preservative free Dr. Job Alatorre Work Phone: [facility] 01-28-2021 influenza, seasonal, injectable Dr. Job Alatorre Work Phone: [facility] Work Phone: 05-20-2020 Covid (Moderna) Dr. Job Alatorre Work Phone: [facility] 04-22-2020 Covid (Moderna) Dr. Job Alatorre Work Phone: [facility] 03-16-2020 influenza, injectabl e, quadrivalent, preservative free Dr. Job Alatorre Work Phone: [facility] 03-16-2020 influenza, seasonal, injectable Dr. Job Alatorre Work Phone: [facility] Work Phone: 09-27-2019 *IMMUNIZATION ADMIN ([id number]) Ronald CAMPBELL MD Work Phone: [facility] 09-27-2019 tetanus toxoid, redu renetta diphtheria toxoid, and acellular pertussis vaccine, adsorbed Ronald CAMPBELL MD Work Phone: [facility].; [facility]. Comment on above: Site: Left DeltoidVI S Given: * Tdap (Tetanus, Diphtheria, Pertussis) (07/24/2019) 09-25-2019 tetanus toxoid, redu renetta diphtheria toxoid, and acellular pertussis vaccine, adsorbed Dr. Job Alatorre Work Phone: [facility] 12-05-2011 meningococcal polysaccharide vaccine (MPSV4) Ronald CAMPBELL MD Work Phone: [facility].; [email or web address] [facility]. 12-05-2011 tetanus toxoid, redu renetta diphtheria toxoid, and acellular pertussis vaccine, adsorbed Ronald CAMPBELL MD Work Phone: [facility]; [facility] 09-09-1999 hepatitis B vaccine, pediatric or pediatric/adolescent dosage Ronald CAMPBELL MD Work Phone: [facility] [employer] [facility] [employer] [facility]. 09-23-1998 hepatitis B vaccine, pediatric or pediatric/adolescent dosage Ronald CAMPBELL MD Work Phone: [facility] [employer] [facility].; [email or web address] [facility] [employer] [facility] 09-23-1998 measles, mumps and rubella virus vaccine Ronald CAMPBELL MD Work Phone: [facility] [employer] [facility] [email or web address] [facility] [employer] [facility]. 08-07-1998 diphtheria, tetanus toxoids and acellular pertussis vaccine Ronald CAMPBELL MD Work Phone: [facility] [employer] [facility] [email or web address] [facility] [employer] [facility]. 08-07-1998 hepatitis B vaccine, pediatric or pediatric/adolescent dosage Ronald CAMPBELL MD Work Phone: [facility] [employer] [facility].; [facility] [employer] [facility]. 08-07-1998 poliovirus vaccine, inactivated Ronald CAMPBELL MD Work Phone: [facility] [employer] [facility].; [email or web address] [facility] [employer] [facility]. 06-01-1994 diphtheria, tetanus toxoids and acellular pertussis vaccine Ronald CAMPBELL MD Work Phone: [facility]; [facility] 06-01-1994 haemophilus influenz ae type b vaccine, HbOC conjugate Ronald CAMPBELL MD Work Phone: [facility]; [facility] 06-01-1994 measles, mumps and rubella virus vaccine Ronald CAMPBELL MD Work Phone: [facility].; [facility] 10-18-1993 diphtheria, tetanus toxoids and acellular pertussis vaccine Ronald CAMPBELL MD Work Phone: [facility]; [facility] 10-18-1993 haemophilus influenz ae type b vaccine, HbOC conjugate Ronald CAMPBELL MD Work Phone: [facility]; [facility] 10-18-1993 poliovirus vaccine, inactivated Ronald CAMPBELL MD Work Phone: [facility]; [facility] 05-11-1993 diphtheria, tetanus toxoids and acellular pertussis vaccine Ronald CAMPBELL MD Work Phone: [facility]; [facility] 05-11-1993 haemophilus influenz ae type b vaccine, HbOC conjugate Ronald CAMPBELL MD Work Phone: [facility]; [facility] 05-11-1993 poliovirus vaccine, inactivated Ronald CAMPBELL MD Work Phone: [facility]; [facility] 1992 diphtheria, tetanus toxoids and acellular pertussis vaccine Ronald CAMPBELL MD Work Phone: [facility]; [facility] 1992 haemophilus influenz ae type b vaccine, HbOC conjugate Ronald CAMPBELL MD Work Phone: [facility] 1992 poliovirus vaccine, inactivated Ronald CAMPBELL MD Work Phone: [facility]; [facility] Payers Date Payer Category Payer Unknown [id number] 2024 Unknown [id number] 2023 Self-pay [id number] 2023 Unknown [id number] 2017 Unknown [id number] Unknown [id number] Unknown [id number] Unknown UMR Unknown [id number] 2.16.8 40.1.919197.3.579.2.462 Unknown [id number] 2.16.8 40.1.084288.3.579.2.462 Unknown [id number] 2.16.8 40.1.004547.3.579.2.462 Unknown [id number] 2.16.8 40.1.373433.3.579.2.462 Unknown [id number] 2.16.8 40.1.506917.3.579.2.462 Unknown [id number] 2.16.8 40.1.253580.3.579.2.462 Unknown [id number] 2.16.8 40.1.873126.3.579.2.462 Unknown [id number] 2.16.8 40.1.036811.3.579.2.462 Unknown [id number] 2.16.8 40.1.811591.3.579.2.462 Unknown [id number] 2.16.8 40.1.407220.3.579.2.462 Unknown [id number] 2.16.8 40.1.294905.3.579.2.462 Unknown [id number] 2.16.8 40.1.592643.3.579.2.462 Unknown [id number] 2.16.8 40.1.700075.3.579.2.462 Unknown [id number] 2.16.8 40.1.462818.3.579.2.462 Unknown [id number] 2.16.8 40.1.161310.3.579.2.462 Unknown [id number] 2.16.8 40.1.013729.3.579.2.462 Unknown [id number] 2.16.8 40.1.325943.3.579.2.462 Unknown [id number] 2.16.8 40.1.115556.3.579.2.462 Unknown [id number] 2.16.8 40.1.425046.3.579.2.462 Unknown [id number] 2.16.8 40.1.558884.3.579.2.462 Unknown [id number] 2.16.8 40.1.299087.3.579.2.462 Social History Date Type Detail Facility Start: 08-06-2021 End: 08-11-2023 Tobacco smoking status SCIS Unknown if ever smoked [facility] Start: 12-06-2019 None [facility] Start: 1990 Sex Assigned At Female W [facility] Alcohol Use: Alcohol Use: ; 1 to 7 drinks per week. 1 drink per occasion. [employer] [facility] [employer] [facility] Current Work/Study Status Current Work/Study Status [facility] [employer] [facility] [employer] [facility] Marital status: Marital status: ; . [employer] [facility] [employer] [facility]. Tobacco use: Tobacco use: ; N ever smoker. [facility] Never smoked tobacco [facility] Work Phone: Tanner Sainz [employer] [facility]. Work Phone: Number of Child (age 0-17) Dependents: Number of Child (age 0-17) Dependents: ; 3. [facility]. Discharge summary note 04-16-2024 Note Date & Type Note Facility 04-16-2024 [facility] Medical Records Department [address] [place] [address] Discharge Summary 04/16/24 0837 MR#: [id number] Acct: [id number] Name: BERNARD GUTIERRES Rep #: [id number] : 1990 33 From: Britany Larson CNM PCP: Status:ADM IN Location: [id number] Providers Date of Admission: 04/14/24 Reason For Visit: R/O LABOR Diagnosis Discharge Diagnosis (1) Vaginal delivery: Status: Acute Code(s): O80 - Encounter for full-term uncomplicated delivery Plan: s/p PPD # 1 1. routine post delivery care 2. breast feeding- support given 3. rh positive 4. rubella immune 5. d/c home today Medications at Discharge Home Medications multivit-min no.71-iron fum 28 mg-folate no.1 1 mg-dha 300 mg capsule (PNV-Beaumont) 1 cap PO DAILY supplement 04/14/23 aspirin 81 mg chewable tablet 81 mg PO DAILY 04/14/24 Hospital Course Operations None Procedures None Summary of Care Provided Hospital Course: with normal pp course. Physical Exam Const alert and oriented x3 Neck full ROM Lymph Lymphatic: no lymphadenopathy noted Chest inspection of chest normal and palpation of chest normal Resp normal respiratory effort and normal air movement Cardio regular rate and regular rhythm GI normal to inspection, nondistended, normoactive bowel sounds Uterus Palpation: uterus fundus firm Extremity normal to inspection and full ROM Extremity Narrative: mild PE Skin no rashes or lesions noted Psych mental status grossly normal Weight / BMI Weight Weight: 162 lb 12.8 oz Body Mass Index (BMI) 26.2 ABG / Lab / Microbiology Data 04/14/24 22:00 D/C Instructions Discharge Diet: No restrictions May resume sexual activity in: 4-6 weeks Call your doctor if your incision/area has: Continuous Slow Oozing, Sudden Increased Bleeding, Increased Pain/ Swelling, Increased Redness and Foul Smelling Discharge DC O2, CPAP, BIPAP Needs Home O2 Discharge instructions: No Please Follow Up With: Trisha Childs MD When: Call [phone] to make an appointment with your doctor in 6 weeks. If you had elevated blood pressure or 4th degree laceration, you will need to be seen in 2 weeks. Meaningful Use Info Meaningful Use Meaningful Use Diagnoses (Choose all that apply): None applicable Ischemic Stroke Statin Dosing Therapy Reference: STATIN DOSE THERAPY REFERENCE: * Patients > 75 years receive moderate or high dose statin therapy. * Patients 75 years or YOUNGER should receive HIGH intensity statin dose unless contraindicated. You will be required to document reason for non-treatment if statin daily dose does not meet guidelines. HIGH DOSE STATIN THERAPY DAILY Atorvastatin > than or = to 40 mg Rosuvastatin > than or = to 20 mg Amlodipine + Atorvastatin > than or = to 2.5/40 mg Ezetimibe + Simvastatin 10/80 mg Simvastatin 80mg Discharge Plan Admission Admit Date/Time: 04/14/24 21:50 Attending Provider: Trisha Childs Discharge Orders/Prescriptions Prescriptions: No Action PNV-Beaumont 28-1-300 mg capsule 1 cap PO DAILY aspirin 81 mg tablet,chewable 81 mg PO DAILY Disposition Disposition (needs filled in before D/C Order can be placed): Home, Self Care 04/16/24 1010 Cosigner Signature (if applicable): CC: FILIBERTO Larson Signed [facility] Evaluation note Note Date & Type Note Facility Evaluation note Diagnosis Onset Date acute Supervision of other normal acute Gestational hypertension res olved History of gestational hypertension acute acute Supervision of other normal acute History of gestational hypertension acute acute Supervision of other normal acute History of gestational hypertension acute acute Supervision of other normal acute History of gestational hypertension acute acute Supervision of other normal acute History of gestational hypertension acute acute Supervision of other normal acute History of gestational hypertension acute acute Supervision of other normal acute History of gestational hypertension acute acute Supervision of other normal acute [facility] Work Phone: Evaluation note Note Date & Type Note Facility Evaluation note Diagnosis Onset Date Gestational hypertension res olved resolved Supervision of other normal resolved resolved Supervision of other normal resolved resolved Supervision of other normal resolved resolved Supervision of other normal resolved resolved Supervision of other normal resolved resolved Supervision of other normal resolved resolved Supervision of other normal resolved resolved Supervision of other normal resolved resolved Supervision of other normal resolved Vaginal delivery acute resolved Supervision of other normal resolved [facility] Work Phone: Evaluation note Note Date & Type Note Facility Evaluation note Diagnosis Onset Date Bleeding in early acute Complete miscarriage acute History of gestational hypertension acute acute Supervision of high-risk acute [facility] Work Phone: Evaluation note Note Date & Type Note Facility Evaluation note Diagnosis Onset Date History of gestational hypertension acute History of miscarriage, currently acute acute Supervision of high-risk acute [facility] Work Phone: Summary Purpose Family History Relationship Condition Age at Onset Recorded Date/T david father Diabetes mellitus Unknown grandmother Malignant neoplasm of breast Unknown grandfather Malignant neoplasm Unknown Relationship Condition Age at Onset Recorded Date/T david father Diabetes mellitus Unknown grandmother Malignant neoplasm of breast Unknown grandfather Malignant neoplasm Unknown mother Malignant neoplasm of breast 60 Relationship Condition Age at Onset Recorded Date/T david father Diabetes mellitus Unknown grandmother Malignant neoplasm of breast 70 grandfather Malignant neoplasm 85 Cardiac disease Unknown mother Malignant neoplasm of breast 60 aunt Diabetes mellitus Unknown uncle Diabetes mellitus Unknown Brother (s) Status:Active Comments:In good health. x2 Daughter (s) Status:Active Comments:1. Father Status:Active Comments:In good health. 1961 Mother Status:Active Comments:In good health. 1961 Son (s) Status:Active Comments:x1 Brother (s) Status:Active Comments:In good health. x2 Daughter (s) Status:Active Comments:1. Father Status:Active Comments:In good health. 1961 Mother Status:Active Comments:In good health. 1961 Son (s) Status:Active Comments:x1 Brother (s) Status:Active Comments:In good health. x2 Daughter (s) Status:Active Comments:1. Father Status:Active Comments:In good health. 1961 Mother Status:Active Comments:In good health. 1961 Son (s) Status:Active Comments:x1 Brother (s) Status:Active Comments:In good health. x2 Daughter (s) Status:Active Comments:1. Father Status:Active Comments:In good health. 1961 Mother Status:Active Comments:In good health. 1961 Son (s) Status:Active Comments:x1 Brother (s) Status:Active Comments:In good health. x2 Daughter (s) Status:Active Comments:1. Father Status:Active Comments:In good health. 1961 Mother Status:Active Comments:In good health. 1961 Son (s) Status:Active Comments:x1 Brother (s) Status:Active Comments:In good health. x2 Daughter (s) Status:Active Comments:1. Father Status:Active Comments:In good health. 1961 Mother Status:Active Comments:In good health. 1961 Son (s) Status:Active Comments:x1 Brother (s) Status:Active Comments:In good health. x2 Daughter (s) Status:Active Comments:1. Father Status:Active Comments:In good health. 1961 Mother Status:Active Comments:In good health. 1961 Son (s) Status:Active Comments:x1 Brother (s) Status:Active Comments:In good health. x2 Daughter (s) Status:Active Comments:1. Father Status:Active Comments:In good health. 1961 Mother Status:Active Comments:In good health. 1961 Son (s) Status:Active Comments:x1 Advance Directives Advance Directive Response Recorded Date/ Time Living Will No December 04 0 10:58pm Power of Operator [employer] No December 04 020 10:58pm Advance Directive Response Recorded Date/ Time Living Will No August 15, 2021 3:22am Power of Operator [employer] No August 15 3:22am Advance Directive Response Recorded Date/ Time Living Will No September 10, 2021 1 1:02am Power of Operator [employer] No September 10, 2021 11:02am Advance Directive Response Recorded Date/ Time Living Will No September 10, 2021 1 2:02pm Power of Operator [employer] No September 10, 2021 12:02pm Chief Complaint and Reason for Visit Chief Complaint 25 WK OB 27/28 WK OB 30 WK OB 32 WK OB 34 WK OB 36 WK OB 37WK OB 38WK OB SIZE/DATE DESCREPANCY Reason for Visit Supervision of other normal Gestational hypertension History of gestational hypertension Supervision of other normal History of gestational hypertension Supervision of other normal History of gestational hypertension Supervision of other normal History of gestational hypertension Supervision of other normal History of gestational hypertension Supervision of other normal History of gestational hypertension Supervision of other normal History of gestational hypertension Supervision of other normal Chief Complaint 25 WK OB 27/28 WK OB 30 WK OB 32 WK OB 34 WK OB 36 WK OB 37WK OB 38WK OB SIZE/DATE DESCREPANCY 39WK OB LABOR LABOR LABOR Reason for Visit Gestational hyperten lizzette Supervision of other normal Supervision of other normal Supervision of other normal Supervision of other normal Supervision of other normal Supervision of other normal Supervision of other normal Supervision of other normal Supervision of other normal Vaginal delivery Supervision of other normal Chief Complaint LMP 10/possible m iscarriage INT LABS LABS Reason for Visit Bleeding in early pr egnancy Complete miscarriage History of gestational hypertension Supervision of high-risk Chief Complaint LMP 02/17/possible m iscarriage INT LABS LABS hcg check/eorder Reason for Visit Bleeding in early pr egnancy Complete miscarriage History of gestational hypertension Supervision of high-risk Chief Complaint LMP 02/17/possible m iscarriage INT LABS LABS hcg check/eorder NEED ORDER/PAT IS CALLING Reason for Visit Bleeding in early pr egnancy Complete miscarriage History of gestational hypertension Supervision of high-risk Chief Complaint NEED ORDER/PAT IS CA YOUNG New OB, LMP 314, YUKO 04/11 per KW E ORDERS Reason for Visit History of gestation al hypertension History of miscarriage, currently Supervision of high-risk Additional Source Comments INFORMATION SOURCE (unrecogn ized section and content) DATE CREATED AUTHOR 10/09/2017 [facility] ([place] DATE CREATED AUTHOR AUTHOR'S ORGANIZ ATION 10/23/2024 [facility] Goals (unrecognized section and content) Goals may be documented in a n alternate sectionGoals may be documented in an alternate sectionGoals may be documented in an alternate sectionGoals may be documented in an alternate sectionGoals may be documented in an alternate sectionGoals may be documented in an alternate sectionGoals may be documented in an alternate sectionGoals may be documented in an alternate section Care Teams (unrecognized sec tion and content) Team Status: Active Member Role Status Dates No Primary Care Physician Family Provider Active Dr. Job Alatorre MD Primary Care Provider Active Team Status: Inactive Member Role Status Dates Dr. Job Alatorre MD Primary Care Provider, Referring Provider Active Britany Larson CNM Attending Provider Active Team Status: Inactive Member Role Status Dates Dr. Job Alatorre MD Primary Care Provider Active Britany Larson CNM Attending Provider, Referring Pr ovider Active Team Status: Active Member Role Status Dates Dr. Job Alatorre MD Primary Care Provider Active Britany Larson CNM Attending Provider, Referring Pr ovider Active Team Status: Inactive Member Role Status Dates Dr. Job Alatorre MD Primary Care Provider, Referring Provider Active Abena Grande CNM Attending Provider Active Team Status: Inactive Member Role Status Dates Dr. Job Alatorre MD Primary Care Provider Active Abena Grande CNM Attending Provider, Referring Pro vider Active FOR RECORDS PERTAINING TO PATIENTS WHO ARE [...] BE BASED ON THE PRIMARY CLINICAL RECORDS. [facility] [employer] [facility]. provides no warranty or guarantee of the accuracy or completeness of information in this document.
[2025-04-23 12:46] LABS: hCG Titer Quant., Serum 217 mIU/mL (<9 non-preg)
== END | disposition home or self-care (01) ==
LOC: BWCLAB 11:58
PROVIDERS: Obstetrics & Gynecology; Visit Provider Student in an Organized Health Care Education/Training Program
DX: O03.9 Complete or unspecified spontaneous abortion without complication (principal)
CPT/HCPCS: 84702